=== PATIENT | female | born 1930 | race Caucasian/White ===

== ENCOUNTER 2016-11-13 11:38 | Outpatient (CLI) | payer OTHER ==
--- NOTE | 2016-11-13 12:36 | DI ---
EXAM: CHEST FRONTAL AND LATERAL VIEWS HISTORY: Malignant melanoma, chronic obstructive pulmonary disease. COMPARISON: None FINDINGS: Heart size is upper limit normal. There is moderate aortic atherosclerosis. Lungs are h yperinflated. No suspicious pulmonary opacities are identified radiographically. No pleural fluid or vascular congestion. Scoliosis is noted. IMPRESSION: No definite suspicious pulmonary nodules are definitely identified radiographically. If metastatic disease to the chest is of concern, consider correlation with CT given patient history.
== END 2016-11-13 11:39 | disposition home or self-care (01) ==
LOC: RAD 11:38
PROVIDERS: ATTEND Internal Medicine
DX: J44.9 Chronic obstructive pulmonary disease, unspecified (principal); Z85.820 Personal history of malignant melanoma of skin

== ENCOUNTER 2017-04-23 11:06 | Outpatient (CLI) | payer OTHER ==
--- NOTE | 2017-04-23 11:32 | DI ---
EXAM: Two views of the chest. History: Myelodysplastic syndrome. Comparison: Chest radiograph 11/13/2016 Findings: Heart size is upper limits of normal. No focal consolidation. No appreciable pleural fl uid and no pneumothorax. Atherosclerotic vascular calcifications. Scoliosis again noted. Impression: No acute cardiopulmonary process. No change compared to the prior study.
== END 2017-04-23 11:07 | disposition home or self-care (01) ==
LOC: RAD 11:06
PROVIDERS: ATTEND Internal Medicine Hematology & Oncology
DX: D46.0 Refractory anemia without ring sideroblasts, so stated (principal)

== ENCOUNTER 2018-01-30 10:15 | Emergency (ER) | payer OTHER ==
[2018-01-30 10:22] VITALS: BP 137/47; TEMP 98.5; BMI 19.4
[2018-01-30] MEDS ORDERED: TENIVAC IM ONE (10:31)
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
[2018-01-30] MEDS ORDERED: NORCO 7.5-325 PO STA (11:58)
[2018-01-30] MEDS ORDERED: KEFLEX PO STA (11:58)
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
== END 2018-01-30 12:40 | disposition home or self-care (01) ==
LOC: ED 10:15
DX: S99.911A Unspecified injury of right ankle, initial encounter (principal); S99.921A Unspecified injury of right foot, initial encounter; V86.99XA Unspecified occupant of other special all-terrain or other off-road motor vehicle injured in nontraffic accident, initial encounter; W19.XXXA Unspecified fall, initial encounter; F17.210 Nicotine dependence, cigarettes, uncomplicated
CPT/HCPCS: 90714; 99283

== ENCOUNTER 2018-02-02 14:33 | Inpatient (IN) ==
[2018-02-02 15:23] VITALS: BMI 19.7
[2018-02-02] MEDS ORDERED: VISTARIL INJ IM PRN (15:26)
[2018-02-02] MEDS ORDERED: MORPHINE 4 MG/ML VIAL IVP PRN (15:26)
[2018-02-02] MEDS ORDERED: NITROSTAT SL PRN (15:26)
[2018-02-02] MEDS ORDERED: ATROPINE SULFATE PFS IVP PRN (15:26)
[2018-02-02] MEDS ORDERED: SODIUM CHLORIDE 1,000 ML IV SCH (15:30)
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
[2018-02-02] MEDS: ROCEPHIN 1 GM in SODIUM CHLORIDE 50 ML IV SCH (16:17)
--- NOTE | 2018-02-02 16:19 | DI ---
EXAM: RIGHT FOOT, 3 VIEWS HISTORY: Infection FINDINGS: Soft tissue swelling of the distal dorsum of the foot is noted possibly with small areas o f soft tissue gas at this level. Consider regional laceration or infection of the soft tissues. No w ell-defined radiopaque foreign body is identified. Bones are diffusely demineralized. There is no w ell-defined acute fracture or healing fracture. No obvious focus of bony destruction to indicate rad iographic evidence of osteomyelitis is identified. If bone infection is of clinical concern, a nucle ar medicine consultation or MRI should be considered. IMPRESSION: 1. Soft tissue swelling of the dorsum of the foot possibly with a punctate internal gas. Consider l aceration or infection. 2. No obvious fracture or focus of bony destruction.
[2018-02-02] MEDS: BACTROBAN TP SCH (20:50)
[2018-02-02] MEDS: CLEOCIN PO SCH (20:51)
[2018-02-03] MEDS: CLEOCIN PO SCH ×3 (05:45→20:23)
[2018-02-03] MEDS ORDERED: ASPIRIN EC PO SCH ×2 (08:00→12:00)
[2018-02-03] MEDS: ROCEPHIN 1 GM in SODIUM CHLORIDE 50 ML IV SCH (09:05)
[2018-02-03] MEDS: BACTROBAN TP SCH ×2 (09:06→20:22)
[2018-02-03] MEDS ORDERED: NON-FORMULARY MEDICATION (Duloxetine Hcl [Cymbalta] 60 MG) PO SCH (11:15)
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
[2018-02-03] MEDS ORDERED: ARICEPT PO SCH (12:00)
[2018-02-03] MEDS: CELEXA PO SCH (13:02)
[2018-02-03] MEDS: CYMBALTA PO SCH (13:02)
[2018-02-03] MEDS: PROTONIX PO SCH (13:03)
[2018-02-03] MEDS: NAMENDA PO SCH ×2 (13:03→20:23)
--- NOTE | 2018-02-03 13:08 | PCM.PROG ---
Attending Provider: ATTENDING PROVIDER: Dr. GEORGI DARNELL DATE OF SERVICE: 02/03/18 SUBJECTIVE: This 88 year old WHITE/ F was hospitalized 02/02/18 with abrasion and infected ulcer with a flap on right lower extremity, infected superficial ulcer on the right foot. The patient is demented, up and about with help. Other problem is anemia. REVIEW OF SYSTEMS: CONSTITUTIONAL: No night sweats. No fatigue, malaise, lethargy. No fever or chills. HEENT: Eyes: No visual changes. No eye pain. No eye discharge. ENT: No runny nose. No epistaxis. No sinus pain. No odynophagia. No congestion. RESPIRATORY: No cough, no congestion. No hemoptysis. No shortness of breath. CARDIOVASCULAR: No angina symptoms. No CHF symptoms. No atypical chest pain for CAD. No palpitations. No orthopnea.. GASTROINTESTINAL: No abdominal pain. No nausea or vomiting. No diarrhea or constipation. No hematemesis. No hematochezia. GENITOURINARY: No urgency. No frequency. No dysuria. No hematuria. No obstructive symptoms. No discharge. No pain. No significant abnormal bleeding. MUSCULOSKELETAL: No musculoskeletal pain; no joint swelling. NEUROLOGICAL: Awake, alert. No headache. No neck pain. No syncope. No seizures. No dizziness. PSYCHIATRIC: Not anxious. No depression. No suicidal thoughts. No homicidal thoughts. SKIN: Abrasion and ulcer right lower extremity, infected ulcer right foot. ENDOCRINE: No unexplained weight loss. No weight gain. HEMATOLOGIC/LYMPHATIC: Anemia. No purpura. No petechiae. No prolonged or excessive bleeding. No palpable lymph nodes. PHYSICAL EXAMINATION: GENERAL: The patient is awake, alert lying/sitting in bed in no distress. VITAL SIGNS: Temperature 97.8 F, Pulse 65, Respiratory Rate 20, BP 137/64, Pulse Ox 98% HEENT: Head normocephalic, atraumatic. Eyes: Extraocular muscles are intact. Pupils are equal, round and reactive to light and accommodation. Ears: No lesions. Nose appeared normal. Throat: No exudate or erythema. NECK: Supple. No JVD, no carotid bruit. No lymphadenopathy or thyromegaly. LUNGS: Clear to auscultation. Percussion note normal. Chest symmetrical. HEART: S1, S2, no S3. No murmurs. No cyanosis or clubbing. No ascites. Pulses: Dorsalis pedis and posterior tibial pulses +1 to +2 both sides. ABDOMEN: Soft. Non-tender. Bowel sounds active. No CVA tenderness. No mass felt. EXTREMITIES: No edema. Full range of motion of all extremities, equal. NEUROLOGIC: No focal deficit. Cranial nerves II through XII are grossly intact. No headache, no double vision or headache. SKIN: Warm and dry. Abrasion right leg with infected ulcer with flap, ulcer on the right foot. LYMPHATIC: No palpable lymph nodes/no lymphedema. MUSCULOSKELETAL: Normal joints with no swelling. Muscle tone is normal. LAB REVIEW: 02/03/18 04:30 02/03/18 04:30 02/03/18 04:30: Sodium 138, Potassium 4.0, Chloride 104, Carbon Dioxide 27, Anion Gap 11.0, BUN 7, Creatinine 0.53 L, Estimated GFR (MDRD) 109.00, BUN/ Creatinine Ratio 13.20, Glucose 100, Calcium 8.6, Total Bilirubin 0.8, AST 14 L , ALT 11 L, Alkaline Phosphatase 73, Total Protein 5.4 L, Albumin 3.1 L, Globulin 2.3, Albumin/Globulin Ratio 1.35 02/03/18 04:30: WBC 5.07, RBC 2.44 L, Hgb 9.1 L, Hct 26.9 L, MCV 110.2 H, MCH 37.3 H, MCHC 33.8, RDW Coeff of Alonso 16.3 H, Plt Count 195, Immature Gran % (Auto ) 1.4, Neut % (Auto) 53.0, Lymph % (Auto) 24.7, Webb % (Auto) 13.4 H, Eos % ( Auto) 6.7, Baso % (Auto) 0.8, Immature Gran # (Auto) 0.1, Neut # (Auto) 2.7, Lymph # (Auto) 1.3, Webb # (Auto) 0.7, Eos # (Auto) 0.3, Baso # (Auto) 0.0, Plt Morphology Comment Normal, Anisocytosis 1+, Macrocytosis 2+ 02/02/18 23:05: Total Creatine Kinase 30, Troponin I < 0.0100 02/02/18 16:15: Urine Color Yellow, Urine Clarity Clear, Urine pH 7.0, Ur Specific [place] 1.015, Urine Protein Negative, Urine Glucose (UA) Negative, Urine Ketones Negative, Urine Blood Negative, Urine Nitrite Negative, Urine Bilirubin Negative, Urine Urobilinogen 1.0, Ur Leukocyte Esterase Negative 02/02/18 15:43: Sodium 136, Potassium 4.3, Chloride 100, Carbon Dioxide 29, Anion Gap 11.3, BUN 11, Creatinine 0.57 L, Estimated GFR (MDRD) 100.00, BUN/ Creatinine Ratio 19.29, Glucose 111, Calcium 9.0, Total Bilirubin 0.7, AST 14 L , ALT 11 L, Alkaline Phosphatase 82, Total Creatine Kinase 32, Troponin I < 0.0100, Total Protein 6.1, Albumin 3.4, Globulin 2.7, Albumin/Globulin Ratio 1.26 02/02/18 15:43: WBC 6.02, RBC 2.49 L, Hgb 9.4 L, Hct 27.8 L, MCV 111.6 H, MCH 37.8 H, MCHC 33.8, RDW Coeff of Alonso 16.8 H, Plt Count 201, Immature Gran % (Auto ) 1.3, Neut % (Auto) 62.1, Lymph % (Auto) 17.8, Webb % (Auto) 14.0 H, Eos % ( Auto) 4.3, Baso % (Auto) 0.5, Immature Gran # (Auto) 0.1, Neut # (Auto) 3.7, Lymph # (Auto) 1.1, Webb # (Auto) 0.8, Eos # (Auto) 0.3, Baso # (Auto) 0.0, Polychromasia 1+, Hypochromasia 1+, Poikilocytosis 1+, Anisocytosis 1+, Macrocytosis 2+, Tear Drop Cells 1+ ASSESSMENT: 1. Abrasion, ulcer right lower extremity. Ulcer dorsal aspect right foot. Ulcer seems to be better with no further evidence of any cellulitis. The patient is being seen by Dr. Domingo. 2. Cardiovascular status is stable. 3. Dementia 4. Anemia PLAN: 1. Will continue to clean ulcer with Normal Saline. 2. Continue antibiotics. PROGNOSIS: Poor considering the patient's age, nutritional status and BMI of 19. She has dementia. Plan and coordination of the patient's care discussed in the presence of [employer] Contort Operator and nurse. CONDITION: Stable SCRIBED BY: DANIELA YOUNGBLOOD [employer] scribed while in presence of service performed by Dr. GEORGI DARNELL on 02/03/18 ([id number])
--- NOTE | 2018-02-03 13:24 | HP ---
DATE OF SERVICE: 02/02/18 HISTORY OF PRESENT ILLNESS: This is an 88-year-old female who fell last weekend, 01/30/18. She went to the emergency room. The patient had brief loss of consciousness, abrasion right leg with open wounds right leg, right foot. The patient was put on Keflex. The area on the right foot is red, oozing purulent drainage. No signs or symptoms of CHF or CAD. PAST MEDICAL HISTORY: COPD Anemia Alzheimer's dementia MDS History of melanoma Glaucoma left and right PAST SURGICAL HISTORY: Melanoma Gallbladder REVIEW OF SYSTEMS: CONSTITUTIONAL: Fatigue. No night sweats. No malaise, lethargy. No fever or chills. HEENT: No sinus drainage. No sore throat. RESPIRATORY: No cough, no congestion. No hemoptysis. No shortness of breath. CARDIOVASCULAR: No angina symptoms. No CHF symptoms. No atypical chest pain for CAD. No palpitations. No PND. No orthopnea. GASTROINTESTINAL: No abdominal pain. No nausea or vomiting. No diarrhea or constipation. No hematemesis. No hematochezia. GENITOURINARY: No urgency. No frequency. No dysuria. No hematuria. No obstructive symptoms. No discharge. No pain. No significant abnormal bleeding. MUSCULOSKELETAL: Right foot swelling. NEUROLOGICAL: Blackout with fall. Positive for unsteady gait. No headache. No neck pain. No syncope. No seizures. No dizziness. PSYCHIATRIC: Not anxious. No depression. No suicidal thoughts. No homicidal thoughts. SKIN: No rash. No lesions. No wounds. ENDOCRINE: No unexplained weight loss. No weight gain. HEMATOLOGIC/LYMPHATIC: No anemia. No purpura. No petechiae. No prolonged or excessive bleeding. No palpable lymph nodes. PERSONAL/FAMILY/SOCIAL HISTORY: The patient is . Two children. Retired teacher. Nonsmoker. No alcohol use. No illicit drug use. Father is . Mother is . One brother ; two sisters. MEDICATIONS: Aspirin 325 mg one p.o. daily Celexa 20 mg one p.o. daily Pantoprazole 40 mg p.o. once daily Namenda XR 28 mg p.o. once daily Cymbalta 60 mg one p.o. daily Aricept 5 mg one tablet p.o. daily in the evening ALLERGIES: NKDA PHYSICAL EXAMINATION: GENERAL: The patient is oriented times three. VITAL SIGNS: Pulse 78, BP 112/68, temperature 98.1, 02 sat 92%. Weight 125 lbs. Height 5'6". HEENT: Head normocephalic. Scalp laceration.. Eyes: Extraocular muscles are intact. Pupils are equal, round and reactive to light and accommodation. Ears : No lesions. Nose appeared normal. Throat: No exudate or erythema. NECK: Supple. No JVD, no carotid bruit. No lymphadenopathy or thyromegaly. LUNGS: Decreased breath sounds. Clear to auscultation. Percussion note normal. Chest symmetrical. HEART: S1, S2, no S3. No murmurs. No cyanosis or clubbing. No ascites. Pulses: Dorsalis pedis and posterior tibial pulses +1 bilaterally. ABDOMEN: Soft. Nontender. Bowel sounds active. No CVA tenderness. No mass felt. EXTREMITIES: Edema right foot. Full range of motion of all extremities, equal. NEUROLOGIC: No focal deficit. Cranial nerves II through XII are grossly intact. No headache, no double vision or headache. SKIN: Abrasions right calf, puncture right foot with purulent drainage. LYMPHATIC: No palpable lymph nodes/no lymphedema. MUSCULOSKELETAL: Normal joints with no swelling. Muscle tone is normal. RECTAL/PELVIC: Refused colonoscopy screening. Patient refused pelvic examination. ASSESSMENT: 1. Abrasion right lower extremity. Infected deep puncture dorsal aspect right foot (Approximately 2" purulent drainage, right foot swollen and bruised. 2. Alzheimer's dementia 3. COPD 4. Anemia 5. MDS 6. Depression 7. Melanoma 8. Glaucoma left greater than right PLAN: 1. Admit 2. Routine telemetry orders 3. CPK/CMP daily and now 4. X-ray right foot 5. Elevate right leg 6. Wound culture to right foot/right calf 7. Rocephin 1 gm IV daily 8. Clindamycin 300 mg p.o. t.i.d. q.8hr 9. NS at 75 cc/hr times one bag 10. Consult Dr. Domingo 11. Bactroban to right calf b.i.d. 12. Regular diet 13. Continue home medications 14. Saline wash t.i.d. right foot ADDENDUM: X-ray of the foot shows soft tissue swelling dorsal aspect of the foot consider infection, no obvious fracture or bony destruction. Chest x-ray is normal. White count 6.02, hemoglobin 9.4, hematocrit 27.8, platelets 201. TIME SPENT: More than 70 minutes. MTDD
[2018-02-03] MEDS: ARICEPT PO SCH (17:23)
[2018-02-04] MEDS: CLEOCIN PO SCH ×3 (05:57→21:13)
[2018-02-04] MEDS: PROTONIX PO SCH (05:57)
[2018-02-04] MEDS ORDERED: NON-FORMULARY MEDICATION (Donepezil Hcl [Aricept] 5 MG) PO SCH (09:00)
[2018-02-04] MEDS ORDERED: NON-FORMULARY MEDICATION (Aspirin [Aspirin] 325 MG) PO SCH (09:00)
[2018-02-04] MEDS ORDERED: NON-FORMULARY MEDICATION (Memantine Hcl [Namenda Xr] 28 MG) PO SCH (09:00)
[2018-02-04] MEDS ORDERED: NON-FORMULARY MEDICATION (Pantoprazole Sodium [Protonix] 40 MG) PO SCH (09:00)
[2018-02-04] MEDS: ROCEPHIN 1 GM in SODIUM CHLORIDE 50 ML IV SCH (09:15)
[2018-02-04] MEDS: NAMENDA PO SCH ×2 (09:16→21:13)
[2018-02-04] MEDS: CYMBALTA PO SCH (09:16)
[2018-02-04] MEDS: ASPIRIN EC PO SCH (09:16)
[2018-02-04] MEDS: CELEXA PO SCH (09:17)
[2018-02-04] MEDS: BACTROBAN TP SCH ×2 (09:17→21:16)
[2018-02-04] MEDS: TYLENOL PO PRN (11:12)
--- NOTE | 2018-02-04 11:28 | PCM.PROG ---
Attending Provider: ATTENDING PROVIDER: Dr. GEORGI HOLLAND This patient is seen with Arti Beck, Nurse Practitioner. DATE OF SERVICE: 02/04/18 SUBJECTIVE: This 88 year old WHITE/ F was hospitalized 02/02/18. The patient is lying in bed, alert. Areas on right lower extremity are starting to scab, improved swelling. Temperature 99 this a.m. REVIEW OF SYSTEMS: CONSTITUTIONAL: No night sweats. No fatigue, malaise, lethargy. No fever or chills. HEENT: Eyes: No visual changes. No eye pain. No eye discharge. ENT: No runny nose. No epistaxis. No sinus pain. No odynophagia. No congestion. RESPIRATORY: No cough, no congestion. No hemoptysis. No shortness of breath. CARDIOVASCULAR: No angina symptoms. No CHF symptoms. No atypical chest pain for CAD. No palpitations. No orthopnea.. GASTROINTESTINAL: No abdominal pain. No nausea or vomiting. No diarrhea or constipation. No hematemesis. No hematochezia. GENITOURINARY: No urgency. No frequency. No dysuria. No hematuria. No obstructive symptoms. No discharge. No pain. No significant abnormal bleeding. MUSCULOSKELETAL: No musculoskeletal pain; no joint swelling. NEUROLOGICAL: Awake, alert, oriented to time, place and person. No headache. No neck pain. No syncope. No seizures. No dizziness. PSYCHIATRIC: Not anxious. No depression. No suicidal thoughts. No homicidal thoughts. SKIN: Multiple abrasions right lower extremity, infected. ENDOCRINE: No unexplained weight loss. No weight gain. HEMATOLOGIC/LYMPHATIC: No anemia. No purpura. No petechiae. No prolonged or excessive bleeding. No palpable lymph nodes. PHYSICAL EXAMINATION: GENERAL: The patient is awake, alert and oriented, lying in bed in no distress. VITAL SIGNS: Temperature 99 F, Pulse 63, Respiratory Rate 18, BP 152/78, Pulse Ox 97% HEENT: Head normocephalic, atraumatic. Eyes: Extraocular muscles are intact. Pupils are equal, round and reactive to light and accommodation. Ears: No lesions. Nose appeared normal. Throat: No exudate or erythema. NECK: Supple. No JVD, no carotid bruit. No lymphadenopathy or thyromegaly. LUNGS: Diminished breath sounds. Clear to auscultation. Percussion note normal. Chest symmetrical. HEART: S1, S2, no S3. No murmurs. No cyanosis or clubbing. No ascites. Pulses: Dorsalis pedis and posterior tibial pulses +1 to +2 both sides. ABDOMEN: Soft. Non-tender. Bowel sounds active. No CVA tenderness. No mass felt. EXTREMITIES: No edema. Full range of motion of all extremities, equal. NEUROLOGIC: No focal deficit. Cranial nerves II through XII are grossly intact. No headache, no double vision or headache. SKIN: Wasrm and dry. Intact. Turgor-normal. Right lower extremity superficial abrasions, scabbed on right calf. 2" area puncture infected dorsal aspect right foot with surrounding swelling and erythema with purulent drainage. LYMPHATIC: No palpable lymph nodes/no lymphedema. MUSCULOSKELETAL: Normal joints with no swelling. Muscle tone is normal. LAB REVIEW: 02/04/18 04:15 02/04/18 04:15 02/04/18 04:15: Sodium 135 L, Potassium 3.8, Chloride 101, Carbon Dioxide 28, Anion Gap 9.8, BUN 7, Creatinine 0.54 L, Estimated GFR (MDRD) 107.00, BUN/ Creatinine Ratio 12.96, Glucose 106, Calcium 8.7, Total Bilirubin 1.1, AST 15, ALT 12, Alkaline Phosphatase 76, Total Protein 5.6 L, Albumin 3.3 L, Globulin 2.3, Albumin/Globulin Ratio 1.43 02/04/18 04:15: WBC 5.06, RBC 2.57 L, Hgb 9.6 L, Hct 27.5 L, MCV 107.0 H, MCH 37.4 H, MCHC 34.9, RDW Coeff of Alonso 16.2 H, Plt Count 210, Immature Gran % (Auto ) 2.8, Neut % (Auto) 53.9, Lymph % (Auto) 19.4, [place] % (Auto) 16.2 H, Eos % ( Auto) 6.9, Baso % (Auto) 0.8, Immature Gran # (Auto) 0.1, Neut # (Auto) 2.7, Lymph # (Auto) 1.0, [place] # (Auto) 0.8, Eos # (Auto) 0.4, Baso # (Auto) 0.0, Plt Morphology Comment Normal, Anisocytosis 1+, Macrocytosis 2+ ASSESSMENT: 1. Abrasion, ulcer right lower extremity. Infected dorsal aspect right foot. Ulcer seems to be better with no further evidence of any cellulitis. The patient is being seen by Dr. Domingo. 2. Cardiovascular status is stable. 3. Dementia 4. Anemia PLAN: 1. Continue Clindamycin 2. Continue IV antibiotics 3. Keep leg elevated 4. Dr. Domingo to continue to follow Plan and coordination of the patient's care discussed in the presence of Dietary Services Director and nurse. CONDITION: Stable SCRIBED BY: April LYNNist scribed while in presence of service performed by Dr. Holland/Arti Beck APRN on 02/04/18 ([id number])
[2018-02-04] MEDS: ARICEPT PO SCH (17:38)
[2018-02-04] MEDS ORDERED: XANAX PO PRN (21:38)
[2018-02-05] MEDS: PROTONIX PO SCH (06:05)
[2018-02-05] MEDS: CLEOCIN PO SCH ×3 (06:06→20:32)
--- NOTE | 2018-02-05 09:37 | PCM.PROG ---
Attending Provider: ATTENDING PROVIDER: Dr. GEORGI HOLLAND This patient is seen with Arti Beck, Nurse Practitioner. DATE OF SERVICE: 02/05/18 SUBJECTIVE: This 88 year old WHITE/ F was hospitalized 02/02/18. The patient is lying in bed, alert. Swelling of right lower extremity slightly improved. No fever today. The patient still with purulent drainage. Dr. Domingo has yet to debride. REVIEW OF SYSTEMS: CONSTITUTIONAL: No night sweats. No fatigue, malaise, lethargy. No fever or chills. HEENT: Eyes: No visual changes. No eye pain. No eye discharge. ENT: No runny nose. No epistaxis. No sinus pain. No odynophagia. No congestion. RESPIRATORY: No cough, no congestion. No hemoptysis. No shortness of breath. CARDIOVASCULAR: No angina symptoms. No CHF symptoms. No atypical chest pain for CAD. No palpitations. No orthopnea.. GASTROINTESTINAL: No abdominal pain. No nausea or vomiting. No diarrhea or constipation. No hematemesis. No hematochezia. GENITOURINARY: No urgency. No frequency. No dysuria. No hematuria. No obstructive symptoms. No discharge. No pain. No significant abnormal bleeding. MUSCULOSKELETAL: No musculoskeletal pain; no joint swelling. NEUROLOGICAL: Awake, alert with bouts of confusion. No headache. No neck pain. No syncope. No seizures. No dizziness. PSYCHIATRIC: Not anxious. No depression. No suicidal thoughts. No homicidal thoughts. SKIN: Multiple abrasions right lower extremity, infected. Slightly less swelling. ENDOCRINE: No unexplained weight loss. No weight gain. HEMATOLOGIC/LYMPHATIC: No anemia. No purpura. No petechiae. No prolonged or excessive bleeding. No palpable lymph nodes. PHYSICAL EXAMINATION: GENERAL: The patient is awake, alert and oriented, lying in bed in no distress. VITAL SIGNS: Temperature 98.5 F, Pulse 65, Respiratory Rate 18, BP 140/71, Pulse Ox 97% HEENT: Head normocephalic, atraumatic. Eyes: Extraocular muscles are intact. Pupils are equal, round and reactive to light and accommodation. Ears: No lesions. Nose appeared normal. Throat: No exudate or erythema. NECK: Supple. No JVD, no carotid bruit. No lymphadenopathy or thyromegaly. LUNGS: Clear to auscultation. Percussion note normal. Chest symmetrical. HEART: S1, S2, no S3. No murmurs. No cyanosis or clubbing. No ascites. Pulses: Dorsalis pedis and posterior tibial pulses +1 to +2 both sides. ABDOMEN: Soft. Non-tender. Bowel sounds active. No CVA tenderness. No mass felt. EXTREMITIES: Right lower extremity superficial abrasions, scabbed on right calf. 2" area puncture infected dorsal aspect right foot with surrounding swelling, which is less today and erythema with purulent drainage. Full range of motion of all extremities, equal. NEUROLOGIC: No focal deficit. Cranial nerves II through XII are grossly intact. No headache, no double vision or headache. SKIN: Not dry. Intact. Turgor-normal. LYMPHATIC: No palpable lymph nodes/no lymphedema. MUSCULOSKELETAL: Normal joints with no swelling. Muscle tone is normal. LAB REVIEW: 02/05/18 05:15 02/05/18 05:15 02/05/18 05:15: Sodium 136, Potassium 3.9, Chloride 99, Carbon Dioxide 30, Anion Gap 10.9, BUN 8, Creatinine 0.50 L, Estimated GFR (MDRD) 116.00, BUN/ Creatinine Ratio 16.00, Glucose 104, Calcium 9.1, Total Bilirubin 1.1, AST 17, ALT 10 L, Alkaline Phosphatase 89, Total Protein 6.0, Albumin 4.1, Globulin 1.9 , Albumin/Globulin Ratio 2.16 02/05/18 05:15: WBC 6.73, RBC 2.75 L, Hgb 10.3 L, Hct 29.9 L, MCV 108.7 H, MCH 37.5 H, MCHC 34.4, RDW Coeff of Alonso 16.6 H, Plt Count 210, Immature Gran % (Auto ) 1.6, Neut % (Auto) 61.7, Lymph % (Auto) 15.5, [place] % (Auto) 14.9 H, Eos % ( Auto) 5.6, Baso % (Auto) 0.7, Immature Gran # (Auto) 0.1, Neut # (Auto) 4.2, Lymph # (Auto) 1.0, [place] # (Auto) 1.0, Eos # (Auto) 0.4, Baso # (Auto) 0.1, Anisocytosis Not present, Macrocytosis 1+ ASSESSMENT: 1. Abrasion, ulcer right lower extremity. Infected dorsal aspect right foot. Ulcer seems to be better with no further evidence of any cellulitis. The patient is being seen by Dr. Domingo. 2. Cardiovascular status is stable. 3. Dementia 4. Anemia PLAN: 1. Continue IV and p.o. antibiotics 2. Anticipate debridement with Dr. Domingo Plan and coordination of the patient's care discussed in the presence of Fish Receiver and nurse. CONDITION: Stable SCRIBED BY: DANIELA YOUNGBLOOD Devops scribed while in presence of service performed by Dr. Holland/Arti Beck APRN on 02/05/18 ([id number])
[2018-02-05] MEDS: CELEXA PO SCH (10:13)
[2018-02-05] MEDS: ASPIRIN EC PO SCH (10:13)
[2018-02-05] MEDS: NAMENDA PO SCH ×2 (10:13→20:32)
[2018-02-05] MEDS: BACTROBAN TP SCH ×2 (10:13→20:31)
[2018-02-05] MEDS: CYMBALTA PO SCH (10:13)
[2018-02-05] MEDS: ROCEPHIN 1 GM in SODIUM CHLORIDE 50 ML IV SCH (10:14)
[2018-02-05] MEDS ORDERED: XANAX PO PRN (11:30)
[2018-02-05] MEDS: ARICEPT PO SCH (18:04)
[2018-02-05] MEDS: XANAX PO SCH (20:32)
[2018-02-05] MEDS: TYLENOL PO PRN (20:32)
[2018-02-05] MEDS ORDERED: SILVADENE CREAM TP SCH (21:00)
[2018-02-06] MEDS: CLEOCIN PO SCH ×2 (05:41→14:06)
[2018-02-06] MEDS: PROTONIX PO SCH (05:41)
[2018-02-06] MEDS: CYMBALTA PO SCH (08:39)
[2018-02-06] MEDS: CELEXA PO SCH (08:39)
[2018-02-06] MEDS: ROCEPHIN 1 GM in SODIUM CHLORIDE 50 ML IV SCH (08:39)
[2018-02-06] MEDS: NAMENDA PO SCH ×2 (08:39→21:18)
[2018-02-06] MEDS: ASPIRIN EC PO SCH (08:39)
[2018-02-06] MEDS: BACTROBAN TP SCH ×2 (10:27→21:19)
[2018-02-06] MEDS: MYLANTA SUSP PO SCH ×3 (15:55→21:17)
[2018-02-06] MEDS: ARICEPT PO SCH (16:33)
[2018-02-06] MEDS: SILVADENE CREAM TP SCH (16:34)
[2018-02-06] MEDS: XANAX PO SCH (21:18)
[2018-02-07] MEDS: PROTONIX PO SCH (05:48)
[2018-02-07] MEDS: NAMENDA PO SCH ×2 (08:02→20:35)
[2018-02-07] MEDS: MYLANTA SUSP PO SCH ×4 (08:02→20:35)
[2018-02-07] MEDS: CYMBALTA PO SCH (08:02)
[2018-02-07] MEDS: ASPIRIN EC PO SCH (08:02)
[2018-02-07] MEDS: ROCEPHIN 1 GM in SODIUM CHLORIDE 50 ML IV SCH (08:02)
[2018-02-07] MEDS: CELEXA PO SCH (08:02)
[2018-02-07] MEDS: BACTROBAN TP SCH ×2 (09:12→20:35)
[2018-02-07] MEDS: ARICEPT PO SCH (16:05)
[2018-02-07] MEDS: SILVADENE CREAM TP SCH (20:33)
[2018-02-07] MEDS: XANAX PO SCH (20:35)
[2018-02-07] MEDS: VITAMIN B-12 IM SCH (22:21)
[2018-02-07] MEDS: THIAMINE IM SCH (22:22)
[2018-02-08] MEDS ORDERED: TYLENOL PO STA (01:36)
[2018-02-08] MEDS: PROTONIX PO SCH (05:55)
[2018-02-08] MEDS ORDERED: TYLENOL PO PRN (07:46)
[2018-02-08] MEDS: NAMENDA PO SCH (09:15)
[2018-02-08] MEDS: CELEXA PO SCH (09:15)
[2018-02-08] MEDS: ASPIRIN EC PO SCH (09:15)
[2018-02-08] MEDS: CYMBALTA PO SCH (09:15)
[2018-02-08] MEDS: MYLANTA SUSP PO SCH ×2 (09:16→12:56)
[2018-02-08] MEDS: BACTROBAN TP SCH (09:19)
[2018-02-08] MEDS: ROCEPHIN 1 GM in SODIUM CHLORIDE 50 ML IV SCH (09:19)
--- NOTE | 2018-02-08 09:19 | PCM.PROG ---
Attending Provider: ATTENDING PROVIDER: Dr. GEORGI HOLLAND This patient is seen with Arti Beck, Nurse Practitioner. DATE OF SERVICE: 02/08/18 SUBJECTIVE: This 88 year old WHITE/ F was hospitalized 02/02/18. The patient is lying in bed, resting comfortably. Dr. Domingo debrided last night and has been doing wet to dry dressing over the weekend with compression wrap. Swelling and redness sign improved. The patient says she would like to go home today. Will discuss with Dr. Domingo. REVIEW OF SYSTEMS: CONSTITUTIONAL: No night sweats. No fatigue, malaise, lethargy. No fever or chills. HEENT: Eyes: No visual changes. No eye pain. No eye discharge. ENT: No runny nose. No epistaxis. No sinus pain. No odynophagia. No congestion. RESPIRATORY: No cough, no congestion. No hemoptysis. No shortness of breath. CARDIOVASCULAR: No angina symptoms. No CHF symptoms. No atypical chest pain for CAD. No palpitations. No orthopnea.. GASTROINTESTINAL: No abdominal pain. No nausea or vomiting. No diarrhea or constipation. No hematemesis. No hematochezia. GENITOURINARY: No urgency. No frequency. No dysuria. No hematuria. No obstructive symptoms. No discharge. No pain. No significant abnormal bleeding. MUSCULOSKELETAL: No musculoskeletal pain; no joint swelling. NEUROLOGICAL: Awake, alert, oriented to time, place and person. No headache. No neck pain. No syncope. No seizures. No dizziness. PSYCHIATRIC: Not anxious. No depression. No suicidal thoughts. No homicidal thoughts. SKIN: Wound right lower extremity. ENDOCRINE: No unexplained weight loss. No weight gain. HEMATOLOGIC/LYMPHATIC: No anemia. No purpura. No petechiae. No prolonged or excessive bleeding. No palpable lymph nodes. PHYSICAL EXAMINATION: GENERAL: The patient is awake, alert and oriented, lying in bed in no distress. VITAL SIGNS: Temperature 98.0 F, Pulse 58, Respiratory Rate 16, BP 135/63, Pulse Ox 97% HEENT: Head normocephalic, atraumatic. Eyes: Extraocular muscles are intact. Pupils are equal, round and reactive to light and accommodation. Ears: No lesions. Nose appeared normal. Throat: No exudate or erythema. NECK: Supple. No JVD, no carotid bruit. No lymphadenopathy or thyromegaly. LUNGS: Clear to auscultation. Percussion note normal. Chest symmetrical. HEART: S1, S2, no S3. No murmurs. No cyanosis or clubbing. No ascites. Pulses: Dorsalis pedis and posterior tibial pulses +1 to +2 both sides. ABDOMEN: Soft. Non-tender. Bowel sounds active. No CVA tenderness. No mass felt. EXTREMITIES: No edema. Full range of motion of all extremities, equal. NEUROLOGIC: No focal deficit. Cranial nerves II through XII are grossly intact. No headache, no double vision or headache. SKIN: Right lower extremity superficial abrasions, scabbed on right calf. 2" area puncture infected dorsal aspect right foot with surrounding swelling, which is less today and erythema with purulent drainage. Full range of motion of all extremities, equal. LYMPHATIC: No palpable lymph nodes/no lymphedema. MUSCULOSKELETAL: Normal joints with no swelling. Muscle tone is normal. LAB REVIEW: 02/08/18 04:05 02/08/18 04:05 02/08/18 04:05: Sodium 134 L, Potassium 4.3, Chloride 99, Carbon Dioxide 28, Anion Gap 11.3, BUN 13, Creatinine 0.60, Estimated GFR (MDRD) 94.00, BUN/ Creatinine Ratio 21.66, Glucose 103, Calcium 8.7, Total Bilirubin 1.5 H, AST 14 L, ALT 12, Alkaline Phosphatase 82, Total Protein 5.6 L, Albumin 3.4, Globulin 2.2, Albumin/Globulin Ratio 1.55 02/08/18 04:05: WBC 6.35, RBC 2.67 L, Hgb 9.8 L, Hct 29.0 L, MCV 108.6 H, MCH 36.7 H, MCHC 33.8, RDW Coeff of Alonso 16.4 H, Plt Count 173, Immature Gran % (Auto ) 0.6, Neut % (Auto) 61.8, Lymph % (Auto) 17.6, [place] % (Auto) 14.8 H, Eos % ( Auto) 4.4, Baso % (Auto) 0.8, Immature Gran # (Auto) 0.0, Neut # (Auto) 3.9, Lymph # (Auto) 1.1, [place] # (Auto) 0.9, Eos # (Auto) 0.3, Baso # (Auto) 0.1, Plt Morphology Comment Normal, Anisocytosis 1+, Macrocytosis 2+ ASSESSMENT: 1. Abrasion, ulcer right lower extremity. Infected dorsal aspect right foot. Ulcer seems to be better with no further evidence of any cellulitis. The patient is being seen by Dr. Domingo. 2. Cardiovascular status is stable. 3. Dementia 4. Anemia PLAN: 1. Tylenol 650 mg q.6hr. 2. Anticipate discharge. 3. Keflex 500 mg t.i.d. times 7 days. 4. Bactroban t.i.d. 5. Silvadene b.i.d. 6. Followup with Dr. Holland/Arti. 7. Home Health for Wound Care. Plan and coordination of the patient's care discussed in the presence of Operations Welder and nurse. CONDITION: Stable SCRIBED BY: DANIELA YOUNGBLOOD Elevator Repairer scribed while in presence of service performed by Dr. Holland/Arti Beck APRN on 02/08/18 ([id number])
[2018-02-08] MEDS: VITAMIN B-12 IM SCH (09:20)
[2018-02-08] MEDS: THIAMINE IM SCH (09:21)
[2018-02-08 09:38] VITALS: BP 130/56; TEMP 98.5
--- NOTE | 2018-02-08 11:03 | CM.DICTOOL ---
ADMISSION: 02/02/18 14:33 DISCHARGE: 02/08/18 FINAL DIAGNOSIS INFECTED DEEP PUNCTURE DORSAL ASPECT RIGHT FOOT ABRAISED RIGHT CALF ALZHEIMER'S DEMENTIA COPD ANEMIA MDS DEPRESSION MELANOMA GLAUCOMA LEFT GREATER THAN RIGHT S/P CHOLECYSTECTOMY LAST VITALS Temp Pulse Resp BP Pulse Ox 98.5 F 64 20 130/56 L 98 02/08/18 09:37 02/08/18 09:37 02/08/18 09:37 02/08/18 09:37 02/08/18 09:37 TAKE THESE MEDICATIONS AT HOME Acetaminophen (Tylenol) 650 mg PO Q6H PRN PRN Reason: Analgesia Aspirin (Aspirin Ec) 325 mg PO DAILYWM [facility] Last Admin: 02/08/18 09:15 Dose: 325 mg Citalopram Hydrobromide (Celexa) 20 mg PO DAILY [facility] Last Admin: 02/08/18 09:15 Dose: 20 mg Donepezil HCl (Aricept) 5 mg PO QPM [facility] Last Admin: 02/07/18 16:05 Dose: 5 mg Duloxetine HCl (Cymbalta) 60 mg PO DAILY [facility] Last Admin: 02/08/18 09:15 Dose: 60 mg Memantine XR 28MG PO DAILY Last Admin: 02/08/18 09:15 Dose: 10 mg Pantoprazole Sodium (Protonix) 40 mg PO QDAC [facility] Last Admin: 02/08/18 05:55 Dose: 40 mg ALLERGIES No Known Allergies Allergy (Unverified 01/30/18 10:21) DISCONTINUED MEDICATIONS NONE NEW PRESCRIPTIONS: NEW MEDICATIONS: 1. KEFLEX 500MG TAKE 1 BY MOUTH 3 TIMES A DAY FOR 7 DAYS. TAKE UNTIL ALL GONE. SMOKING: N/A DISEASE SPECIFIC EDUCATION: WOUND CARE MEDICATIONS ACTIVITY HOME HEALTH FOLLOW UP APPOINTMENTS WOUND CARE CLINIC LAB REVIEW: 02/08/18 04:05 02/08/18 04:05 02/08/18 04:05: Sodium 134 L, Potassium 4.3, Chloride 99, Carbon Dioxide 28, Anion Gap 11.3, BUN 13, Creatinine 0.60, Estimated GFR (MDRD) 94.00, BUN/ Creatinine Ratio 21.66, Glucose 103, Calcium 8.7, Total Bilirubin 1.5 H, AST 14 L, ALT 12, Alkaline Phosphatase 82, Total Protein 5.6 L, Albumin 3.4, Globulin 2.2, Albumin/Globulin Ratio 1.55 02/08/18 04:05: WBC 6.35, RBC 2.67 L, Hgb 9.8 L, Hct 29.0 L, MCV 108.6 H, MCH 36.7 H, MCHC 33.8, RDW Coeff of Alonso 16.4 H, Plt Count 173, Immature Gran % (Auto ) 0.6, Neut % (Auto) 61.8, Lymph % (Auto) 17.6, [place] % (Auto) 14.8 H, Eos % ( Auto) 4.4, Baso % (Auto) 0.8, Immature Gran # (Auto) 0.0, Neut # (Auto) 3.9, Lymph # (Auto) 1.1, [place] # (Auto) 0.9, Eos # (Auto) 0.3, Baso # (Auto) 0.1, Plt Morphology Comment Normal, Anisocytosis 1+, Macrocytosis 2+ PLAN: CONTINUE HOME MEDICATIONS PER NURSING SHEETS. MAY TAKE TYLENOL FOR PAIN. NEW MEDICATIONS: 1. KEFLEX 500MG TAKE 1 BY MOUTH 3 TIMES A DAY FOR 7 DAYS. TAKE UNTIL ALL GONE. WOUND CARE: WET TO DRY DRESSINGS TO WOUNDS BID. HOME HEALTH TO ASSIST WITH DRESSING CHANGES. YOU HAVE BEEN REFERRED TO THE [facility]. DR. GOMEZ REQUESTS YOU BE SEEN ON THIS THURSDAY. THEY SHOULD CALL YOU WITH AN APPOINTMENT TIME. CALL IF YOU DO NOT HEAR FROM THEM BY THURSDAY AFTERNOON. DIET: TOLERATED. ACTIVITY: KEEP RIGHT LEG ELEVATED MUCH POSSIBLE. AMBULATE ONLY NEEDED. FOLLOW UP WITH DR. DARNELL ON ThursdayJanuary AT 10AM. IF UNABLE TO KEEP APPOINTMENT PLEASE CALL TO RESCHEDULE. [phone]. FOLLOW UP WITH DR. GOMEZ ON ThursdayJanuary AT 100PM. IF UNABLE TO KEEP APPOINTMENT PLEASE CALL TO RESCHEDULE. [phone]. PATIENT IS A FULL CODE. AWAKENS EASILY. ORIENTED X 4 WITH FORGETFULNESS NOTED. Reginald LAM REHAB DIRECTOR OCCUPATIONAL THERAPIST INTO SEE PATIENT. PLAN OF CARE DISCUSSED INCLUDING POSSIBLE DISCHARGE TO HOME, HOME HEALTH FOR WOUND CARE AND ABX THERAPY. DISCUSSED HOME HEALTH AGENCY CHOICE AND PATIENT NOT SURE WHICH AGENCY. CALLED PATIENT'S SON WITH MESSAGE LEFT ON VOICE MAIL. APPETITE IS GOOD. VITAL SIGNS ARE STABLE. HAS BEEN AFEBRILE. POX 97% ON ROOM AIR. HEART TONES ARE REGULAR. NO C/O PAIN OR DISCOMFORT. LUNGS ARE CLEAR. NO COUGH OR DYSPNEA NOTED. ABDOMEN IS SOFT, NON-TENDER WITH BOWEL SOUNDS POSITIVE IN ALL [address] WITH BRIGHT RED STOMA NOTED. STOOL NOTED INDICATING PROPER FUNCTIONING. PEDAL PULSES POSITIVE WITHOUT EDEMA. RIGHT OCHOA WITH SMALL ABRASION AND BRUISING NOTED. NO DRAINAGE OR S/S OF INFECTION. RIGHT FOOT DRESSING REMOVED PER Reginald LAM APRN REVEALING IMPROVEMENT OF REDNESS AND SWELLING. SMALL AMOUNT OF YELLOWISH DRAINAGE NOTED. AREA HAD BEEN DEBRIDED BY DR. GOMEZ LAST EVENING. HAS SALINE LOCK IN RIGHT UPPER ARM SITE IS CLEAR. IS A FALL RISK WITH FALL PRECAUTIONS IN USE. IS A STANDBY ASSIST WITH STEADY/ SLOW GAIT. DR. GEORGI DARNELL MD Reginald LAM APRN
--- NOTE | 2018-02-08 11:40 | PN ---
DATE OF SERVICE: 02/04/18 SUBJECTIVE: The patient was hospitalized with infected ulcers on the leg. The patient's condition is improved. She is being taken care of by Dr. Domingo who is surgical endoscopist. The patient was seen and examined with Nurse Practitioner. Continued on Antibiotics. CONDITION: Improving. TIME SPENT: More than 30 minutes. Plan and coordination of the patient's care discussed in the presence of nurse. PETE
--- NOTE | 2018-02-08 13:11 | PN ---
DATE OF SERVICE: 02/05/18 SUBJECTIVE: 88 year old white female hospitalized with lower extremity abrasion and infection ulcers. It is being seen by Dr. Domingo on consultation. The patient's infection seems to be under control. The patient is noncompliant and wants to go home everyday. She has dementia with some aggressive behavior. Yesterday she was given Xanax and that has helped. The patient strongly advised to staying in the hospital and the son, the one that is charge of her power of lead oxide mill tender for health. The patient was seen and examined with Nurse Practitioner. Continue antibiotics and surgical followup consultation. TIME SPENT: More than 30 minutes. Plan and coordination of the patient's care discussed in the presence of nurse. PETE
--- NOTE | 2018-02-08 15:09 | CONS ---
DATE OF CONSULTATION FOLLOW UP: 02/03/18 The patient's right foot is still markedly edematous and has vesicular eruptions on the dorsal surface, distal. Vesicles in the lateral leg is due to blood. I will attempt to dbride it today. I did talk to the patient, as well as the nurse that the leg has to be elevated all of the time. The only time her legs are down on the floor is when she is eating and if she is going for personal necessities to the bathroom. Otherwise, she should be in a supine posture with the legs elevated. I did advise the patient that these blisters would erupt and it would produce some rough surfaces. It is mandatory that she keeps it up. I do believe that the patient has some senile problems and that she does not remember everything. I did advise the nurse to keep check and put the patient back at supine posture if she is sitting. PETE
--- NOTE | 2018-02-08 15:15 | CONS ---
DATE OF CONSULTATION FOLLOW UP: 02/04/18 The right foot is still essentially the same as yesterday. The swelling is the same, as well as the vesicles. The patient could not follow the instructions. A compression dressing will be applied to this area and this patient should be going to Wound Care for further follow up for the problem. This will be done after she is discharged from this facility. The patient may need Transitional Care in order to follow this wound. The patient is not in any distress. Her vital signs at 6 p.m. today showed a temperature of 97.4, axillary. Pulse 72, blood pressure 163/71, respiratory rate 16, oxygen saturation 98 at room air. The patient always wants to go home. PETE
--- NOTE | 2018-02-08 15:26 | CONS ---
DATE OF CONSULTATION FOLLOW UP: 02/05/18 The patient is in bed with the foot elevated. The right foot swelling has regressed remarkably and the blisters also had regressed. Debridement was carried in the area of the foot, dorsal surface, lateral, as well as in the right leg. Debridement was carried sharply using a curved scissor and a thumb forceps. Peroxide was used to soak the wound prior to the debridement. After the debridement, the wound would be dressed with moist saline during the daytime and then a night should be Silvadene cream covered with Telfa and a Estephania or an adhesive. The patient tolerated the debridement well. The swelling in the foot and leg has regressed and so no compression dressing is needed at this time. Again, the nurse, as well as the patient were reminded that she should not get out of bed unless it is for eating or going to the bathroom. PETE
--- NOTE | 2018-02-08 15:35 | CONS ---
DATE OF CONSULTATION FOLLOW UP: 02/06/18 Ms. 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 The patient had blisters on the dorsal surface of the foot since she was hanging her legs all of the time. She had been advised several times that she should put her legs up or elevated in bed. She should only be up while eating or going for personal necessities in the bathroom. The swelling in the foot has decreased remarkably. The blisters has disappeared. There is still a moderate amount of swelling. No debridement was done today. Probably tomorrow. The patient's appetite is good and had been consuming 100% of the meals. VITAL SIGNS: Today at 5:30 p.m. showed a temperature of 97.6, pulse 71, blood pressure 154/68, respiratory rate 18, oxygen saturation 99 at room air. The patient is still on Clindamycin and Ceftriaxone. Culture did show Enterobacter cloacae complex and is sensitive to Ceftriaxone, but not to Clindamycin. The other wound culture had no growth. The Clindamycin will be discontinued to reduce the chances of antibiotic associated colitis. PETE
--- NOTE | 2018-02-09 08:32 | PN ---
DATE OF SERVICE: 02/07/18 SUBJECTIVE: The patient was hospitalized with ulcers both of them on the right leg seems to be healing properly. REVIEW OF SYSTEMS: CONSTITUTIONAL: No night sweats. No fatigue, malaise, lethargy. No fever or chills. HEENT: Eyes: No visual changes. No eye pain. No eye discharge. ENT: No runny nose. No epistaxis. No sinus pain. No sore throat. No odynophagia. No congestion. RESPIRATORY: No cough, no congestion. No hemoptysis. No shortness of breath. CARDIOVASCULAR: No angina symptoms. No CHF symptoms. No atypical chest pain for CAD. No palpitations. No orthopnea. GASTROINTESTINAL: No abdominal pain. No nausea or vomiting. No diarrhea or constipation. No hematemesis. No hematochezia. GENITOURINARY: No urgency. No frequency. No dysuria. No hematuria. No obstructive symptoms. No discharge. No pain. No significant abnormal bleeding. MUSCULOSKELETAL: No musculoskeletal pain; no joint swelling. NEUROLOGICAL: No headache. No neck pain. No syncope. No seizures. No dizziness. Confused but no distress. PSYCHIATRIC: Not anxious. No depression. No suicidal thoughts. No homicidal thoughts. SKIN: No rash. No lesions. No wounds. ENDOCRINE: No unexplained weight loss. No weight gain. HEMATOLOGIC/LYMPHATIC: No anemia. No purpura. No petechiae. No prolonged or excessive bleeding. No palpable lymph nodes. PHYSICAL EXAMINATION: HEENT: Head normocephalic, atraumatic. Eyes: Extraocular muscles are intact. Pupils are equal, round and reactive to light and accommodation. Ears: No lesions. Nose appeared normal. Throat: No exudate or erythema. NECK: Supple. No JVD, no carotid bruit. No lymphadenopathy or thyromegaly. LUNGS: Clear to auscultation. Percussion note normal. Chest symmetrical. HEART: S1, S2, no S3. No murmurs. No cyanosis or clubbing. No ascites. Pulses: Dorsalis pedis and posterior tibial pulses +1 to +2 both sides. ABDOMEN: Soft. Nontender. Bowel sounds active. No CVA tenderness. No mass felt. EXTREMITIES: No edema. Full range of motion of all extremities, equal. Right leg has a bandage and doesn't seem to be swollen. The capillary feeling is good beyond the bandage area. The patient is doing much better as far the healing part is concerned according to the nursing staff. NEUROLOGIC: No focal deficit. Cranial nerves II through XII are grossly intact. No headache, no double vision or headache. SKIN: Not dry. Intact. Turgor - normal. LYMPHATIC: No palpable lymph nodes/no lymphedema. MUSCULOSKELETAL: Normal joints with no swelling. Muscle tone is normal. ASSESSMENT: 1. Ulcers, healing preventive antibiotics PLAN: 1. Continue the rest of the medications CONDITION: Stable PROGNOSIS: Poor, healing is guarded has patient is demented and has malnourished and is being taken care of by son who is doing his best and his best is not good enough. TIME SPENT: More than 30 minutes. Plan and coordination of the patient's care discussed in the presence of nurse. PETE
--- NOTE | 2018-02-10 14:42 | PN ---
DATE OF SERVICE: 02/08/18 SUBJECTIVE: 88 year old white female hospitalized with abrasions right lower extremity with ulcers. The patient's has done very well and the ulcer is healing. The patient is going to need Wound Care at [facility] followed by Dr. Domingo. She was seen by Dr. Domingo in the hospital. The patient has dementia and she is underweight with poor nutrition. She is being taken care of by son who is doing his best to provide care but the best is not good enough. The patient is refusing to go to the long term. Son is not willing to put her in the long term. Prognosis for healing is not good but she is going to be followed by Home Health Care and Wound Care. CONDITION: Stable. The patient was seen and examined with Nurse Practitioner. TIME SPENT: More than 30 minutes. Plan and coordination of the patient's care discussed in the presence of nurse. PETE
--- NOTE | 2018-02-10 14:44 | PN ---
02/02/18: Level 5 02/03/18: Intermediate 02/04/18: Intermediate 02/05/18: Intermediate 02/06/18: Intermediate 02/07/18: Brief 02/08/18: D as in discharge MTDD
--- NOTE | 2018-02-11 13:06 | DS ---
DATE OF SERVICE: 02/08/18 FINAL DIAGNOSIS: 1. Infected deep puncture dorsal aspect right foot 2. Abraised right calf 3. Alzheimer's Dementia 4. COPD 5. Anemia 6. MDS 7. Depression 8. Melanoma 9. Glaucoma left greater than right 10.Status post Cholecystectomy LAST VITALS: Temperature 98.5, pulse 64, respiratory rate 20, blood pressure 130/56 and pulse ox 98%. DISCHARGE INSTRUCTIONS: Continue home medications per nursing sheets. May take Tylenol for pain. Wound Care: Wet to dry dressing to wounds twice a day. Home Health to assist with dressing changes. You have been referred to the [facility] at [facility]. Dr. Domingo Requests you to be seen on this Thursday. They should have an appointment time. Followup with Dr. Holland on ThursdayFebruary 15 at 10am. Followup with Dr. Domingo on ThursdayFebruary 12 at 100pm. Patient is full code. MEDICATIONS AT DISCHARGE: Tylenol 650mg PO Q 6 hours PRN Aspirin 325mg PO daily Celexa 20mg PO daily Aricept 5mg PO QPM Cymbalta 60mg PO daily Memantine XR 28mg Po daily Protonix 40mg PO QDAC ALLERGIES: No known allergies NEW PRESCRIPTIONS: Keflex 500mg take one by mouth three times a day for 7 days. Take until all gone. DIET INSTRUCTIONS: As tolerated ACTIVITY: Keep right leg elevated as much as possible. Ambulate only as needed. SMOKING: N/A DISEASE SPECIFIC EDUCATION: Wound Care Medications Activity Home Health Followup Appointment Wound Care Clinic HOSPITAL COURSE: This is an 88 year old female who was a direct admit from our office. She had been to the emergency room a couple days before presenting to our office after experiencing a fall from a four doug[place] and had scraps and bruises to her right lower extremity. She was placed on Keflex in the emergency room. She presented to our office she did have some superficial abrasions to the right calf however she had a large 1x2in puncture wound on the dorsal aspect of her right foot which had malodorous drainage, was red, her foot was swollen with surrounding erythema. It was clearly infected. She was running a low grade temperature of 99. Again she had already been on Keflex for two days. We subsequently admitted her and placed on IV Rocephin 1 gram daily along with Clindamycin initially 150mg PO Q 8 hours. She was in the hospital for two days. Dr. Domingo was consulted for wound care. He wanted to wait for a lot of the swelling to go down before he debrided as x-ray did show no evidence of osteomyelitis but did show some foreign in the puncture wound on the dorsal aspect of the right foot. He also added Bactroban to be applied three times daily. She was instructed to lay with her right foot elevated. After two days the redness had slightly improved and swelling was about the same. I increased her Clindamycin to 300mg PO Q 8 hours. The wound slowly began to improve. The abrasions to the calf started to heal first with no erythema or drainage they started to scab. Dr. Domingo ordered wet to dry dressings on the wound over the weekend. He also discontinued the Clindamycin. On admission wound cultures were done of both sites and the sensitivity was appropriate with treatment with Rocephin. Dr. Domingo debrided the wound on 02/07/18 in order to continue the wet to dry dressing, he also ordered to continue the Bactroban to the wounds on the calf. He is agreeable for her discharge today. She has been afebrile for the past 48 hours. He has also ordered starting Thursday he ordered on compression dressing to help with the swelling of the right foot. This has help tremendously. Erythema has improved as well as purulent drainage. She will go home on Keflex 500mg three times a day PO for the next [address] Domingo would like her to discontinue the Silvadene and the Bactroban. She is to continue the wet to dry dressings at home. Her son was with her; information and instruction has been given to him on how to do the dressings. She is agreeable to have home health come in and help with dressing changes. She is to see Dr. Domingo at Wound Care on Thursday of this week as well as see us on Thursday and then she will see Dr. Domingo again next week. If signs and symptoms do not continue to improve she is instructed to return sooner. She is to keep her leg elevated at home. She is instructed to keep her leg elevated as much as possible and keep it clean and dry. We will followup with her this week. TIME SPENT: More than 60 minutes. PETE
== END 2018-02-08 13:25 | disposition home or self-care (01) | DRG 605 ==
LOC: MEDSURG B 14:33
PROVIDERS: ADMIT Internal Medicine; ATTEND Internal Medicine
PROC: 0HBMXZZ Excision of Right Foot Skin, External Approach (ICD-10-PCS; principal; 2018-02-05)
PROC: 0HBKXZZ Excision of Right Lower Leg Skin, External Approach (ICD-10-PCS; 2018-02-05)
DX: S91.331A Puncture wound without foreign body, right foot, initial encounter (principal); F02.81 Dementia in other diseases classified elsewhere, unspecified severity, with behavioral disturbance; L08.9 Local infection of the skin and subcutaneous tissue, unspecified; B96.89 Other specified bacterial agents as the cause of diseases classified elsewhere; V86.75XA Person on outside of 3- or 4- wheeled all-terrain vehicle (ATV) injured in nontraffic accident, initial encounter; W18.39XA Other fall on same level, initial encounter; Y93.89 Activity, other specified; Y92.096 Garden or yard of other non-institutional residence as the place of occurrence of the external cause; S80.811A Abrasion, right lower leg, initial encounter; G30.1 Alzheimer's disease with late onset; J44.9 Chronic obstructive pulmonary disease, unspecified; D64.9 Anemia, unspecified; D46.9 Myelodysplastic syndrome, unspecified; F32.9 Major depressive disorder, single episode, unspecified; C43.9 Malignant melanoma of skin, unspecified; H40.9 Unspecified glaucoma
CPT/HCPCS: 36415; 80053; 81001; 82550; 84484; 85008; 85025; 87070; 87077; 87186; 93005; 93010

== ENCOUNTER 2018-02-10 11:16 | Outpatient (CLI) | END 2018-02-10 11:17 | disposition home or self-care (01) | LOC: WOUND 11:16 | PROVIDERS: ATTEND Nurse Practitioner Family | DX: S80.811S Abrasion, right lower leg, sequela (principal); S91.331A Puncture wound without foreign body, right foot, initial encounter; S91.031A Puncture wound without foreign body, right ankle, initial encounter; F03.90 Unspecified dementia, unspecified severity, without behavioral disturbance, psychotic disturbance, mood disturbance, and anxiety; D64.9 Anemia, unspecified | CPT/HCPCS: 11042; 99202 ==

== ENCOUNTER 2018-02-17 11:12 | Outpatient (CLI) | END 2018-02-17 11:13 | disposition home or self-care (01) | LOC: WOUND 11:12 | PROVIDERS: ATTEND Nurse Practitioner Family | DX: S80.811S Abrasion, right lower leg, sequela (principal); S91.331A Puncture wound without foreign body, right foot, initial encounter; S91.031A Puncture wound without foreign body, right ankle, initial encounter; F03.90 Unspecified dementia, unspecified severity, without behavioral disturbance, psychotic disturbance, mood disturbance, and anxiety; D64.9 Anemia, unspecified ==

== ENCOUNTER 2018-02-24 11:11 | Outpatient (CLI) | END 2018-02-24 11:12 | disposition home or self-care (01) | LOC: WOUND 11:11 | PROVIDERS: ATTEND Nurse Practitioner Family | DX: S80.811S Abrasion, right lower leg, sequela (principal); S91.331A Puncture wound without foreign body, right foot, initial encounter; S91.031A Puncture wound without foreign body, right ankle, initial encounter; F03.90 Unspecified dementia, unspecified severity, without behavioral disturbance, psychotic disturbance, mood disturbance, and anxiety; D64.9 Anemia, unspecified | CPT/HCPCS: 11042; 11045 ==

== ENCOUNTER 2018-03-10 10:27 | Outpatient (CLI) | payer OTHER | END 2018-03-10 10:28 | disposition home or self-care (01) | LOC: WOUND 10:27 | PROVIDERS: ATTEND Nurse Practitioner Family | DX: S80.811S Abrasion, right lower leg, sequela (principal); S91.331A Puncture wound without foreign body, right foot, initial encounter; S91.031A Puncture wound without foreign body, right ankle, initial encounter; F03.90 Unspecified dementia, unspecified severity, without behavioral disturbance, psychotic disturbance, mood disturbance, and anxiety; D64.9 Anemia, unspecified | CPT/HCPCS: 11042 ==

== ENCOUNTER 2018-03-17 10:36 | Outpatient (CLI) | payer OTHER | END 2018-03-17 10:37 | disposition home or self-care (01) | LOC: WOUND 10:36 | PROVIDERS: ATTEND Nurse Practitioner Family | DX: S91.331A Puncture wound without foreign body, right foot, initial encounter (principal); S91.031A Puncture wound without foreign body, right ankle, initial encounter; F03.90 Unspecified dementia, unspecified severity, without behavioral disturbance, psychotic disturbance, mood disturbance, and anxiety; D64.9 Anemia, unspecified | CPT/HCPCS: 11042; 99213 ==

== ENCOUNTER 2018-03-24 08:59 | Outpatient (CLI) | END 2018-03-24 09:00 | disposition home or self-care (01) | LOC: WOUND 08:59 | PROVIDERS: ATTEND Nurse Practitioner Family | DX: S91.331A Puncture wound without foreign body, right foot, initial encounter (principal); S91.031A Puncture wound without foreign body, right ankle, initial encounter; F03.90 Unspecified dementia, unspecified severity, without behavioral disturbance, psychotic disturbance, mood disturbance, and anxiety; D64.9 Anemia, unspecified | CPT/HCPCS: 11042 ==

== ENCOUNTER 2018-03-31 10:59 | Outpatient (CLI) | END 2018-03-31 11:00 | disposition home or self-care (01) | LOC: WOUND 10:59 | PROVIDERS: ATTEND Nurse Practitioner Family | DX: S91.331A Puncture wound without foreign body, right foot, initial encounter (principal); S91.031A Puncture wound without foreign body, right ankle, initial encounter; F03.90 Unspecified dementia, unspecified severity, without behavioral disturbance, psychotic disturbance, mood disturbance, and anxiety; D64.9 Anemia, unspecified | CPT/HCPCS: 11042 ==

== ENCOUNTER 2018-04-07 10:40 | Outpatient (CLI) | payer OTHER | END 2018-04-07 10:41 | disposition home or self-care (01) | LOC: WOUND 10:40 | PROVIDERS: ATTEND Nurse Practitioner Family | DX: S91.331A Puncture wound without foreign body, right foot, initial encounter (principal); F03.90 Unspecified dementia, unspecified severity, without behavioral disturbance, psychotic disturbance, mood disturbance, and anxiety; D64.9 Anemia, unspecified ==

== ENCOUNTER 2018-04-14 11:03 | Outpatient (CLI) | payer OTHER | END 2018-04-14 11:04 | disposition home or self-care (01) | LOC: WOUND 11:03 | PROVIDERS: ATTEND Nurse Practitioner Family | DX: S91.331A Puncture wound without foreign body, right foot, initial encounter (principal); F03.90 Unspecified dementia, unspecified severity, without behavioral disturbance, psychotic disturbance, mood disturbance, and anxiety; D64.9 Anemia, unspecified ==

== ENCOUNTER 2018-04-21 11:12 | Outpatient (CLI) | END 2018-04-21 11:13 | disposition home or self-care (01) | LOC: WOUND 11:12 | PROVIDERS: ATTEND Nurse Practitioner Family | DX: S91.311A Laceration without foreign body, right foot, initial encounter (principal); F03.90 Unspecified dementia, unspecified severity, without behavioral disturbance, psychotic disturbance, mood disturbance, and anxiety; D64.9 Anemia, unspecified ==

== ENCOUNTER 2018-04-28 10:51 | Outpatient (CLI) | END 2018-04-28 10:52 | disposition home or self-care (01) | LOC: WOUND 10:51 | PROVIDERS: ATTEND Nurse Practitioner Family | DX: S91.331A Puncture wound without foreign body, right foot, initial encounter (principal); F03.90 Unspecified dementia, unspecified severity, without behavioral disturbance, psychotic disturbance, mood disturbance, and anxiety; D64.9 Anemia, unspecified ==

== ENCOUNTER 2018-05-12 10:54 | Outpatient (CLI) | payer OTHER | END 2018-05-12 10:55 | disposition home or self-care (01) | LOC: WOUND 10:54 | PROVIDERS: ATTEND Nurse Practitioner Family | DX: S91.331A Puncture wound without foreign body, right foot, initial encounter (principal); F03.90 Unspecified dementia, unspecified severity, without behavioral disturbance, psychotic disturbance, mood disturbance, and anxiety; D64.9 Anemia, unspecified | CPT/HCPCS: 99211; 99213 ==

== ENCOUNTER 2018-09-09 03:45 | Inpatient (IN) ==
[2018-09-09] MEDS ORDERED: LACTATED RINGERS 1,000 ML IV STA (04:13)
[2018-09-09] MEDS ORDERED: XOPENEX 0.63 MG NEB STA (04:24)
--- NOTE | 2018-09-09 04:38 | ED.PDOC ---
General ED Provider: Dr. KIRSTIN KAUR Chief Complaint: Respiratory Complaint Stated Complaint: Patient is brought by ambulace after son called when he found her sitting on the floor. Conplained of chest conjestion and cough with sputum production. Denies any chest pain Time Seen by Physician: 04:00 Mode of Arrival: Ambulance Information Source: Patient, EMT Exam Limitations: Other ([place] of hearing ) Primary Care Provider: GEORGI DARNELL Nursing and Triage Documentation Reviewed and Agree: Yes Does patient meet sepsis criteria?: Yes If yes, has appropriate treatment been initiated?: Yes System Inflammatory Response Syndrome: Temp 101F or Greater, Pulse >90 BPM Sepsis Protocol: For patient's 13 years and over: Temp is 96.8 and below OR 101 and greater Pulse >90 BPM Resp >20/minute Acutely Altered Mental Status Are patient's symptoms suggestive of a new infection, such as: -Pneumonia -Skin, Soft Tissue -Endocarditis -UTI -Bone, Joint Infection -Implantable Device -Acute Abdominal Infection -Wound Infection -Meningitis -Blood Stream Catheter Infection -Unknown Review of Systems - Review Of Systems Constitutional: Reports: No symptoms Eyes: Reports: No symptoms Ears, Nose, Mouth, Throat: Reports: No symptoms (except hearing loss ) Respiratory: Reports: Cough, Short of air Cardiac: Reports: No symptoms GI: Reports: Blood streaked bowels (in colostomy ). Denies: Abdominal pain, Nausea, Poor appetite : Reports: No symptoms Musculoskeletal: Reports: No symptoms Skin: Reports: No symptoms Neurological: Reports: Anxiety Endocrine: Reports: No symptoms Hematologic/Lymphatic: Reports: No symptoms All Other Systems: Reviewed and Negative Past Medical History - Past Medical History Previously Healthy: Yes Endocrine: Reports: None Cardiovascular: Reports: None Respiratory: Reports: None 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 ) Gastrointestinal: Reports: GERD Genitourinary: Reports: None Neuro/Psych: Reports: Anxiety, Depression, Dementia Musculoskeletal: Reports: None Cancer: Reports: None Last Menstrual Period: UNKNOWN - Surgical History General Surgical History: Reports: Other (Colostomy due to tear of abdomen ) - Family History Family History: Reports: Unknown - Social History Smoking Status: Current every day smoker, Light tobacco smoker Hx Substance Use: No Alcohol Screening: None - Immunizations Tetanus Shot up to Date: (UNKNOWN) Physical Exam - Physical Exam Appearance: Ill-appearing Ill-appearing: Moderate Pain Distress: None Eyes: JOSEY, EOMI ENT: Ears normal (heard of hearing ) Respiratory: Breath sounds diminished, Wheezes Cardiovascular: Tachycardia GI/: Soft, Nontender (colostomy bag with blood ) Musculoskeletal: Normal strength, ROM intact, No edema, No calf tenderness Skin: Warm, Dry, Normal color Neurological: Sensation intact, Motor intact, Cranial nerves intact, Alert, Oriented Psychiatric: Anxious Interpretation - Radiology Interpretation Radiology Interpretation By: Radiologist Radiology Results: Negative Exam Interpreted: Portable CXR - Stitch Welder Rate: Tachy Rhythm: Sinus Ectopy: None - EKG Interpretation Time of EKG #1: 04:10 Rate: Tachy Rhythm: Sinus Ectopy: None [place]: Right ST Segment: Normal Interpretation: Anterior infarct age undetermined Re-Evaluation - Re-Evaluation Time of Re-Evaluation: 05:32 Status: Improved Vital Signs Stable: Yes Lungs: Other (better air movement.) Skin: Warm and Dry Neuro: Alert and Oriented X3 CV: RRR Physician Notification - Case Discussed Physician Notified: Dr Darnell Time of Notification: 06:30 (Admit to SCU) Critical Care Note - Critical Care Note Total Time (mins): 45 Course - Course Hematology/Chemistry: 09/11/18 04:30 09/11/18 04:30 Orders, Labs, Meds: Lab Review 09/09/18 09/09/18 09/09/18 04:14 04:20 04:20 WBC 4.85 RBC 3.24 L Hgb 12.7 Hct 35.9 L MCV 110.8 H MCH 39.2 H MCHC 35.4 RDW Coeff of Alonso 14.5 Plt Count 113 L Immature Gran % (Auto) 0.8 Neut % (Auto) 75.9 Lymph % (Auto) 14.0 [place] % (Auto) 9.1 Eos % (Auto) 0.0 Baso % (Auto) 0.2 Immature Gran # (Auto) 0.0 Neut # (Auto) 3.7 Lymph # (Auto) 0.7 [place] # (Auto) 0.4 Eos # (Auto) 0.0 Baso # (Auto) 0.0 Anisocytosis Not present Macrocytosis 1+ Puncture Site Rbrach O2 Saturation 91.0 L ABG pH 7.456 H ABG pCO2 34.5 L ABG pO2 57.0 L* ABG HCO3 24.3 ABG Total CO2 25 ABG Base Excess 0 Boy Test + FiO2 % 21.0 Sodium 130.2 L Potassium 3.31 L Chloride 93.1 L Carbon Dioxide 30.2 H Anion Gap 10.21 BUN 10.9 Creatinine 0.45 L Estimated GFR (MDRD) 131.00 BUN/Creatinine Ratio 24.22 Glucose 113.1 H Lactic Acid Calcium 8.98 Total Bilirubin 1.89 H AST 110.9 H ALT 35.1 H Alkaline Phosphatase 84.1 Total Protein 6.94 Albumin 4.23 Globulin 2.71 Albumin/Globulin Ratio 1.56 Procalcitonin Influ A Molecular Assay Influ B Molecular Assay 09/09/18 09/09/18 09/09/18 04:20 04:20 06:50 WBC RBC Hgb Hct MCV MCH MCHC RDW Coeff of Alonso Plt Count Immature Gran % (Auto) Neut % (Auto) Lymph % (Auto) [place] % (Auto) Eos % (Auto) Baso % (Auto) Immature Gran # (Auto) Neut # (Auto) Lymph # (Auto) [place] # (Auto) Eos # (Auto) Baso # (Auto) Anisocytosis Macrocytosis Puncture Site O2 Saturation ABG pH ABG pCO2 ABG pO2 ABG HCO3 ABG Total CO2 ABG Base Excess Boy Test FiO2 % Sodium Potassium Chloride Carbon Dioxide Anion Gap BUN Creatinine Estimated GFR (MDRD) BUN/Creatinine Ratio Glucose Lactic Acid 1.31 Calcium Total Bilirubin AST ALT Alkaline Phosphatase Total Protein Albumin Globulin Albumin/Globulin Ratio Procalcitonin 0.54 Influ A Molecular Assay Positive by naat H Influ B Molecular Assay Negative by naat Orders Category Date Time Status ABG DRAW REQUEST Routine CARDIO 09/09/18 04:14 Completed NEBULIZER TREATMENT Routine CARDIO 09/09/18 06:44 Active NEBULIZER TREATMENT Stat CARDIO 09/09/18 04:25 Completed OXYGEN Routine CARDIO 09/09/18 06:39 Active ACTIVITY .Early Mobilization for VTE Prevention CARE 09/09/18 06:40 Active INTAKE & OUTPUT Q8HR CARE 09/09/18 06:39 Active NPO REMINDER: IMAGING ONCE CARE 09/09/18 05:19 Completed VITAL SIGNS Q8HR CARE 09/09/18 06:39 Active REGULAR DIET DIETARY 09/09/18 Breakfast Ordered ED APPLY O2 .ONCE EMERGENCY 09/09/18 04:13 Active ED NURSE RECRUITER APPLIED .ONCE EMERGENCY 09/09/18 04:13 Active ED VITAL SIGNS Q1HR EMERGENCY 09/09/18 04:13 Completed ABG Stat LAB 09/09/18 04:14 Completed BLOOD CULTURE (ED ONLY) Stat LAB 09/09/18 04:20 Results CBC W/ AUTO DIFF DAILY@0600 LAB 09/10/18 04:30 Completed CBC W/ AUTO DIFF DAILY@0600 LAB 09/11/18 04:30 Completed CBC W/ AUTO DIFF Stat LAB 09/09/18 04:20 Completed COMPREHENSIVE METABOLIC PANEL DAILY@0600 LAB 09/10/18 04:30 Completed COMPREHENSIVE METABOLIC PANEL DAILY@0600 LAB 09/11/18 04:30 Completed COMPREHENSIVE METABOLIC PANEL Stat LAB 09/09/18 04:20 Completed FLU A/B MOLECULAR Stat LAB 09/09/18 06:50 Completed LACTIC ACID Stat LAB 09/09/18 04:20 Completed PROCALCITONIN Stat LAB 09/09/18 04:20 Completed RBC MORPHOLOGY Stat LAB 09/09/18 04:20 Completed Acetaminophen [Tylenol] MEDS 09/09/18 06:39 Active 650 mg PO Q4H PRN Azithromycin [Zithromax] MEDS 09/10/18 09:00 Active 250 mg PO DAILY Azithromycin [Zithromax] MEDS 09/09/18 05:02 Discontinued 500 mg PO ONCE STA Ceftriaxone Sodium [Rocephin] MEDS 09/09/18 05:16 Discontinued 1 gm .ROUTE .STK-MED ONE Ceftriaxone Sodium [Rocephin] 1 gm MEDS 09/09/18 09:00 Active 0.9 % Sodium Chloride [Sodium Chloride] 50 ml IV DAILY Ceftriaxone Sodium [Rocephin] 1 gm MEDS 09/09/18 05:02 Discontinued 0.9 % Sodium Chloride [Sodium Chloride] 50 ml IV ONCE Citalopram Hydrobromide [Celexa] MEDS 09/09/18 09:00 Active 20 mg PO DAILY Ipratropium/Albuterol Neb [Duoneb] MEDS 09/09/18 10:00 Active 1 vial NEB RTQID Levalbuterol HCl [Xopenex 0.63 mg] MEDS 09/09/18 04:24 Discontinued 1 vial NEB ONCE STA Methylprednisolone Sod Succ/Pf [Solu-Medrol 125 mg] MEDS 09/09/18 05:02 Discontinued 125 mg IVP ONCE STA Methylprednisolone Sod Succ/Pf [Solu-Medrol 125 mg] MEDS 09/09/18 13:00 Discontinued 60 mg IVP Q8HR Ondansetron HCl/Pf [Zofran 4 mg/2 ml] MEDS 09/09/18 06:39 Active 4 mg IVP Q6H PRN Pantoprazole Sodium [Protonix IV] MEDS 09/09/18 04:42 Discontinued 40 mg IVP ONCE STA Pantoprazole Sodium [Protonix IV] MEDS 09/09/18 07:30 Discontinued 40 mg IVP Q10H Ringers Lactated Solution [Lactated Ringers] 1,000 ml MEDS 09/09/18 04:13 Discontinued IV 250 mls/hr Sodium Chloride 0.9% [Sodium Chloride] 1,000 ml MEDS 09/09/18 07:00 Discontinued IV 125 mls/hr RESUSCITATION STATUS Routine OTHERS 09/09/18 06:39 Ordered CHEST, 1V AP ONLY Stat RADS 09/09/18 04:[address] ABDOMEN/PELVIS W CONTRAST Stat RADS 09/09/18 05:18 Completed Medications Generic Name Dose Route Start Last Admin Trade Name Freq PRN Reason Stop Dose Admin Acetaminophen 650 mg 09/09/18 06:39 Tylenol PO Q4H PRN fever or mild pain Albuterol/Ipratropium 1 vial 09/09/18 10:00 09/11/18 05:15 Duoneb NEB 1 vial RTQID VELIA Administration Azithromycin 250 mg 09/10/18 09:00 09/10/18 09:57 Zithromax PO 09/13/18 09:01 250 mg DAILY VELIA Administration Citalopram Hydrobromide 20 mg 09/09/18 09:00 09/10/18 09:57 Celexa PO 20 mg DAILY VELIA Administration Donepezil HCl 5 mg 09/09/18 21:00 09/10/18 21:06 Aricept PO 5 mg BEDTIME VELIA Administration Duloxetine HCl 60 mg 09/09/18 09:00 09/10/18 09:57 Cymbalta PO 60 mg DAILY VELIA Administration Ceftriaxone Sodium 1 gm/ 50 mls @ 75 mls/hr 09/09/18 09:00 09/10/18 09:57 Sodium Chloride IV 75 mls/hr DAILY VELIA Administration Latanoprost 1 drop 09/09/18 21:00 09/10/18 21:12 Xalatan OP 1 drop BEDTIME VELIA Administration Methylprednisolone Sodium Succinate 100 mg 09/10/18 13:00 09/11/18 06:06 Solu-Medrol 125 Mg IVP 100 mg Q8HR VELIA Administration Metronidazole 500 mg 09/09/18 13:00 09/11/18 06:07 Flagyl PO 500 mg Q8HR VELIA Administration Nicotine 1 patch 09/10/18 10:00 09/10/18 12:08 Nicoderm 21 Mg TD 1 patch DAILY VELIA Administration Ondansetron HCl 4 mg 09/09/18 06:39 Zofran 4 Mg/2 Ml IVP Q6H PRN Nausea / Vomiting Oseltamivir Phosphate 75 mg 09/09/18 09:00 09/10/18 21:09 Tamiflu PO 09/14/18 08:59 75 mg Q12HR VELIA Administration Pantoprazole Sodium 40 mg 09/09/18 21:00 09/10/18 21:03 Protonix Iv IVP 40 mg Q12HR VELIA Administration Potassium Chloride 40 meq 09/09/18 17:30 09/10/18 16:58 K-Dur PO 40 meq BIDWM VELIA Administration Sucralfate 1 gm 09/09/18 11:00 09/11/18 06:07 Carafate PO 1 gm ACHS VELIA Administration Discontinued Medications Generic Name Dose Route Start Last Admin Trade Name Freq PRN Reason Stop Dose Admin Azithromycin 500 mg 09/09/18 05:02 09/09/18 05:25 Zithromax PO 09/09/18 05:03 500 mg ONCE STA Administration Lactated Ringer's 1,000 mls @ 250 mls/hr 09/09/18 04:13 09/09/18 04:21 Lactated Ringers IV 09/09/18 08:12 250 mls/hr .Q4H STA Administration Ceftriaxone Sodium 1 gm/ 50 mls @ 75 mls/hr 09/09/18 05:02 09/09/18 05:26 Sodium Chloride IV 09/09/18 05:41 75 mls/hr ONCE STA Administration Sodium Chloride 1,000 mls @ 125 mls/hr 09/09/18 07:00 09/10/18 02:25 Sodium Chloride IV 125 mls/hr .Q8H VELIA Administration Levalbuterol HCl 1 vial 09/09/18 04:24 09/09/18 04:35 Xopenex 0.63 Mg NEB 09/09/18 04:25 1 vial ONCE STA Administration Levalbuterol HCl 1 vial 09/09/18 14:00 09/09/18 22:11 Xopenex 1.25 Mg NEB Not Given RTTID VELIA Methylprednisolone Sodium Succinate 125 mg 09/09/18 05:02 09/09/18 05:23 Solu-Medrol 125 Mg IVP 09/09/18 05:03 125 mg ONCE STA Administration Methylprednisolone Sodium Succinate 60 mg 09/09/18 13:00 09/10/18 06:13 Solu-Medrol 125 Mg IVP 60 mg Q8HR VELIA Administration Pantoprazole Sodium 40 mg 09/09/18 04:42 09/09/18 05:21 Protonix Iv IVP 09/09/18 04:43 40 mg ONCE STA Administration Pantoprazole Sodium 40 mg 09/09/18 07:30 09/09/18 10:13 Protonix Iv IVP Not Given Q10H VELIA Pantoprazole Sodium 40 mg 09/09/18 10:00 09/09/18 11:32 Protonix Iv IVP Not Given Q12H VELIA Vital Signs: Temp Pulse Resp BP Pulse Ox 09/09/18 03:55 101.7 F H 153 H 36 H 114/66 87 L Departure - Departure Time of Disposition: 06:58 Disposition: ADMITTED INPATIENT Discharge Problem: COPD with exacerbation, Influenza A GI bleed Qualifiers: GI bleed type/associated pathology: unspecified gastrointestinal hemorrhage type Qualified Code(s): K92.2 - Gastrointestinal hemorrhage, unspecified Right lower lobe pneumonia Qualifiers: Pneumonia type: due to unspecified organism Qualified Code(s): J18.1 - Lobar pneumonia, unspecified organism Condition: Fair Pt referred to PMD for follow-up: Yes IPMP verified?: No Allergies/Adverse Reactions: Allergies No Known Allergies Allergy (Verified 09/09/18 04:04) Home Medications: Ambulatory Orders Duloxetine HCl [Cymbalta] 60 mg PO D 04/12/14 Pantoprazole Sodium [Protonix] 40 mg PO DAILY 04/12/14 Donepezil HCl [Aricept] 5 mg PO DAILY 12/24/16 Citalopram Hydrobromide [Celexa] 20 mg PO DAILY 02/03/18 Latanoprost/Pf [Latanoprost 0.005% Eye Drop] 1 drop OP DAILY 09/09/18
[2018-09-09] MEDS ORDERED: PROTONIX IV IVP STA (04:42)
--- NOTE | 2018-09-09 04:55 | DI ---
EXAM: Portable chest HISTORY: Shortness of breath COMPARISON: Single-view chest 02/02/2018 FINDINGS: Patient is rotated to the left. The heart is normal in size. Atherosclerotic changes are seen involving the aortic arch.. There is no evidence of infiltrate or effusion. No acute osseous abnormalities are identified. IMPRESSION: No evidence of active pulmonary disease or interval change
[2018-09-09] MEDS ORDERED: ZITHROMAX PO STA (05:02)
[2018-09-09] MEDS ORDERED: ROCEPHIN 1 GM in SODIUM CHLORIDE 50 ML IV STA (05:02)
[2018-09-09] MEDS ORDERED: SOLU-MEDROL 125 MG IVP STA (05:02)
[2018-09-09] MEDS ORDERED: ROCEPHIN ONE (05:16)
[2018-09-09] MEDS ORDERED: TYLENOL PO PRN (06:39)
[2018-09-09] MEDS ORDERED: ZOFRAN 4 MG/2 ML IVP PRN (06:39)
--- NOTE | 2018-09-09 06:51 | CT ---
EXAM: CT scan abdomen pelvis with contrast HISTORY: GI bleeding of the colostomy site COMPARISON: None. FINDINGS: Contiguous axial images obtained through the right pelvis following uneventful administrat ion of intravenous contrast utilize 3-mm collimation. Sagittal and coronal reconstructions were imag ed and reviewed. Patchy consolidation is noted at the right lung base which atelectasis and/or pneumo live. The gallbladder was not identified. The liver pancreas spleen and adrenal glands have normal e nhanced CT appearance. The kidneys excrete contrast in a normal fashion bilaterally. Atheroscleroti c changes are seen involving the aorta and iliacs without aneurysm formation. Diverticulosis withou t diverticulitis is seen in the sigmoid colon.. Thickening is seen in the left colon which may be re lated to underdistension versus colitis. There is a left lower quadrant colostomy. There is no free fluid. Bone windows reveal osteopenia degenerative changes throughout the lumbar spine and bilatera l hip IMPRESSION: Right lower lobe pneumonia versus atelectasis. Extensive ASVD without aneurysm. Diverticulosis without diverticulitis. Thickening of the left colon which may be related to underdistension versus colitis . Left lower quadrant colostomy site. No evidence free fluid
[2018-09-09] MEDS ORDERED: NON-FORMULARY MEDICATION (Duloxetine Hcl [Cymbalta] 60 MG) PO SCH (07:00)
[2018-09-09] MEDS ORDERED: PROTONIX IV IVP SCH ×2 (07:30→10:00)
[2018-09-09 08:30] VITALS: BMI 19.9
[2018-09-09] MEDS ORDERED: NON-FORMULARY MEDICATION (Donepezil Hcl [Aricept] 5 MG) PO SCH (09:00)
[2018-09-09] MEDS: DUONEB NEB SCH ×3 (09:52→21:33)
[2018-09-09] MEDS: CYMBALTA PO SCH (10:21)
[2018-09-09] MEDS: TAMIFLU PO SCH ×2 (10:21→22:02)
[2018-09-09] MEDS: CELEXA PO SCH (10:22)
[2018-09-09] MEDS: CARAFATE PO SCH ×3 (10:22→22:03)
[2018-09-09] MEDS: SODIUM CHLORIDE 1,000 ML IV SCH ×2 (10:25→18:09)
[2018-09-09] MEDS: ROCEPHIN 1 GM in SODIUM CHLORIDE 50 ML IV SCH (10:30)
[2018-09-09] MEDS: SOLU-MEDROL 125 MG IVP SCH ×2 (14:00→22:03)
[2018-09-09] MEDS: FLAGYL PO SCH ×2 (14:00→22:03)
[2018-09-09] MEDS ORDERED: K-DUR ONE (16:37)
[2018-09-09] MEDS: K-DUR PO SCH (16:38)
[2018-09-09] MEDS: ARICEPT PO SCH (22:02)
[2018-09-09] MEDS: PROTONIX IV IVP SCH (22:04)
[2018-09-09] MEDS: XALATAN OP SCH (22:05)
[2018-09-09] MEDS: XOPENEX 1.25 MG NEB SCH (22:11)
[2018-09-10] MEDS: SODIUM CHLORIDE 1,000 ML IV SCH (02:25)
[2018-09-10] MEDS: DUONEB NEB SCH ×3 (04:47→14:21)
[2018-09-10] MEDS: SOLU-MEDROL 125 MG IVP SCH ×3 (06:13→21:03)
[2018-09-10] MEDS: FLAGYL PO SCH ×3 (06:17→21:10)
[2018-09-10] MEDS: CARAFATE PO SCH ×4 (06:17→21:02)
--- NOTE | 2018-09-10 07:54 | HP ---
DATE OF SERVICE: 09/09/18 REASON FOR HOSPITALIZATION/HISTORY OF PRESENT ILLNESS: 88 year old female who presented to the emergency room with cough, weakness and fever. PAST MEDICAL HISTORY: Myelodysplastic syndrome History of collectomy years ago Sciatica Dementia COPD Anemia Depression History of Melanoma on right leg Glaucoma Generalized anxiety disorder PAST SURGICAL HISTORY: Status post colectomy with colostomy bag this was years ago Melanoma, right left to have this removed REVIEW OF SYSTEMS: CONSTITUTIONAL: No night sweats. No fatigue, malaise, lethargy. Fever. Weakness. HEENT: Eyes: No visual changes. No eye pain. No eye discharge. ENT: No runny nose. No epistaxis. No sinus pain. No sore throat. No odynophagia. No ear pain. No congestion. RESPIRATORY: Cough, no congestion. No hemoptysis. No shortness of breath. CARDIOVASCULAR: No angina symptoms. No CHF symptoms. No atypical chest pain for CAD. No palpitations. No PND. No orthopnea. GASTROINTESTINAL: No abdominal pain. No nausea or vomiting. No diarrhea or constipation. No hematemesis. No hematochezia. GENITOURINARY: No urgency. No frequency. No dysuria. No hematuria. No obstructive symptoms. No discharge. No pain. No significant abnormal bleeding. MUSCULOSKELETAL: No musculoskeletal pain. No joint swelling. No arthritis. NEUROLOGICAL: No headache. No neck pain. No syncope. No seizures. No dizziness. PSYCHIATRIC: Not anxious. No depression. No suicidal thoughts. No homicidal thoughts. SKIN: No rash. No lesions. No wounds. ENDOCRINE: No unexplained weight loss. No weight gain. HEMATOLOGIC/LYMPHATIC: No anemia. No purpura. No petechiae. No prolonged or excessive bleeding. No palpable lymph nodes. PERSONAL/FAMILY/SOCIAL HISTORY: The patient is still and her , Ag, lives [facility] and she lives at home with her son. She is nonsmoker, no alcohol or illicit drug use. MEDICATIONS: Cymbalta 60mg PO daily Protonix 40mg PO daily Aricept 5mg PO daily Celexa 20mg PO daily Latanoprost 7.5ml drops one drop OP daily ALLERGIES: No known allergies PHYSICAL EXAMINATION: GENERAL: The patient is alert and oriented to person, not place and time. VITAL SIGNS: Temperature 101.7, heart rate 110, respiratory rate 20, blood pressure 138/85. HEENT: Head normocephalic, atraumatic. Eyes: Extraocular muscles are intact. Pupils are equal, round and reactive to light and accommodation. Ears: No lesions. Nose appeared normal. Throat: No exudate or erythema. NECK: Supple. No JVD, no carotid bruit. No lymphadenopathy or thyromegaly. LUNGS: Diminished breath sounds bilaterally. Clear to auscultation. Percussion note normal. Chest symmetrical. HEART: S1, S2, no S3. No murmurs. No cyanosis or clubbing. No ascites. Pulses: Dorsalis pedis and posterior tibial pulses +1 to +2 bilaterally. ABDOMEN: Soft. Nontender. Bowel sounds active. No CVA tenderness. No mass felt. EXTREMITIES: No edema. Full range of motion of all extremities, equal. NEUROLOGIC: No focal deficit. Cranial nerves II through XII are grossly intact. No headache, no double vision or headache. SKIN: Not dry. Intact. Turgor - normal. Pale. LYMPHATIC: No palpable lymph nodes/no lymphedema. MUSCULOSKELETAL: Normal joints with no swelling. Muscle tone is normal. LABS: The patient is positive for influenza A. Sodium 130, potassium 3.3, CO2 30.2, BUN 10.9, creatinine 0.45, glucose 113, Total bilirubin 1.89, AST 110, ALT 35, Total protein 6.9, WBC 4.85, RBC 3.24, hgb 12.7, hct 35.9, plt count 113. CT of the chest shows right lower lobe pneumonia versus atelectasis, possible colitis in the left side of the colon. Left sided colectomy site. ASSESSMENT: 1. Influenza A 2. Right lobar pneumonia 3. Generalized weakness 4. Dehydration PLAN: 1. Will admit to [facility] 2. CBC and CMP daily 3. Routine telemetry orders 4. Start Tamiflu 75mg PO twice a day 5. Start Potassium 40mg PO twice a day 6. Rocephin 1 gram IV daily 7. Solu-Cortef 100mg IV Q 8 hours 8. Start Xopenex NEBS treatments three times a day 9. Tylenol 650mg PO Q 4-6 hours PRN for fever 10.IV fluids normal saline at 75cc an hour 11.She is having some bleeding in her colostomy bag, started on Protonix 40mg IV Q 12 hours as well as Carafate three times a day. 12.Zofran 4mg Q 6 hours IV for nausea 13.[place] diet 14.Oxygen at 1-2 liters as needed Will follow her closely. TIME SPENT: More than 70 minutes. MTDD
[2018-09-10] MEDS ORDERED: LATANOPROST OP SCH (09:00)
--- NOTE | 2018-09-10 09:53 | PCM.PROG ---
Attending Provider: ATTENDING PROVIDER: Dr. GEORGI DARNELL This patient is seen with Arti Beck, Nurse Practitioner. DATE OF SERVICE: 09/10/18 SUBJECTIVE: This 88 year old WHITE/ F was hospitalized 09/09/18. The patient is lying in bed resting comfortably. No fever since yesterday morning. She is still with congested cough. No visible blood in colostomy bag this morning. She ate well yesterday afternoon. REVIEW OF SYSTEMS: CONSTITUTIONAL: Weakness. No night sweats. No fatigue, malaise, lethargy. No fever or chills. HEENT: Eyes: No visual changes. No eye pain. No eye discharge. ENT: No runny nose. No epistaxis. No sinus pain. No odynophagia. No congestion. RESPIRATORY: Cough and congestion. No hemoptysis. No shortness of breath. CARDIOVASCULAR: No angina symptoms. No CHF symptoms. No atypical chest pain for CAD. No palpitations. No orthopnea.. GASTROINTESTINAL: No abdominal pain. No nausea or vomiting. No diarrhea or constipation. No hematemesis. No hematochezia. GENITOURINARY: No urgency. No frequency. No dysuria. No hematuria. No obstructive symptoms. No discharge. No pain. No significant abnormal bleeding. MUSCULOSKELETAL: No musculoskeletal pain; no joint swelling. NEUROLOGICAL: Awake, alert, oriented to self. No headache. No neck pain. No syncope. No seizures. No dizziness. PSYCHIATRIC: Not anxious. No depression. No suicidal thoughts. No homicidal thoughts. SKIN: No rash. No lesions. No wounds. ENDOCRINE: No unexplained weight loss. No weight gain. HEMATOLOGIC/LYMPHATIC: No anemia. No purpura. No petechiae. No prolonged or excessive bleeding. No palpable lymph nodes. PHYSICAL EXAMINATION: GENERAL: The patient is awake, alert and oriented to self, lying in bed in no distress. VITAL SIGNS: Temperature 98.5 F, Pulse 70, Respiratory Rate 18, BP 139/70, Pulse Ox 93% HEENT: Head normocephalic, atraumatic. Eyes: Extraocular muscles are intact. Pupils are equal, round and reactive to light and accommodation. Ears: No lesions. Nose appeared normal. Throat: No exudate or erythema. NECK: Supple. No JVD, no carotid bruit. No lymphadenopathy or thyromegaly. LUNGS: Diminished breath sounds, bilateral rhonchi. Percussion note normal. Chest symmetrical. HEART: S1, S2, no S3. No murmurs. No cyanosis or clubbing. No ascites. Pulses: Dorsalis pedis and posterior tibial pulses +1 to +2 both sides. ABDOMEN: Soft. Non-tender. Positive for soft brown stool in colostomy bag. Bowel sounds active. No CVA tenderness. No mass felt. EXTREMITIES: No edema. Full range of motion of all extremities, equal. NEUROLOGIC: No focal deficit. Cranial nerves II through XII are grossly intact. No headache, no double vision or headache. SKIN: Not dry. Intact. Turgor-normal. LYMPHATIC: No palpable lymph nodes/no lymphedema. MUSCULOSKELETAL: Normal joints with no swelling. Muscle tone is normal. LAB REVIEW: 09/10/18 04:30 09/10/18 04:30 09/10/18 04:30: Sodium 134.5, Potassium 4.63, Chloride 100.7, Carbon Dioxide 32.5 H, Anion Gap 5.93, BUN 15.5, Creatinine 0.42 L, Estimated GFR (MDRD) 142.00 , BUN/Creatinine Ratio 36.90, Glucose 140.5 H, Calcium 8.81, Total Bilirubin 0.88, AST 85.6 H D, ALT 30.8, Alkaline Phosphatase 51.8 L D, Total Protein 5.78 L, Albumin 3.43 L, Globulin 2.35, Albumin/Globulin Ratio 1.45 09/10/18 04:30: WBC 3.34 L, RBC 2.44 L, Hgb 9.5 L D, Hct 27.8 L D, MCV 113.9 H, MCH 38.9 H, MCHC 34.2, RDW Coeff of Alonso 14.7, Plt Count 88 L, Immature Gran % ( Auto) 0.9, Neut % (Auto) 82.3, Lymph % (Auto) 9.3 L, [place] % (Auto) 7.5, Eos % ( Auto) 0.0, Baso % (Auto) 0.0, Immature Gran # (Auto) 0.0, Neut # (Auto) 2.8, Lymph # (Auto) 0.3 L, [place] # (Auto) 0.3 L, Eos # (Auto) 0.0, Baso # (Auto) 0.0, Anisocytosis Not present, Macrocytosis 1+ ASSESSMENT: 1. Influenza A. 2. Right lower lobe pneumonia. 3. GI bleed in colostomy seems to have stopped. 4. Anemia secondary to hemodilution. 5. Dementia. PLAN: 1. D/C IV fluids. 2. Increase Solumedrol to 100 mg q.8, Plan and coordination of the patient's care discussed in the presence of Service Tech/Welder and nurse. CONDITION: Stable SCRIBED BY: Angie LYNN scribed while in presence of service performed by Dr. Darnell/Arti Beck APRN on 09/10/18 ([id number])
[2018-09-10] MEDS: K-DUR PO SCH ×2 (09:57→16:58)
[2018-09-10] MEDS: ZITHROMAX PO SCH (09:57)
[2018-09-10] MEDS: TAMIFLU PO SCH ×2 (09:57→21:09)
[2018-09-10] MEDS: PROTONIX IV IVP SCH ×2 (09:57→21:03)
[2018-09-10] MEDS: CELEXA PO SCH (09:57)
[2018-09-10] MEDS: CYMBALTA PO SCH (09:57)
[2018-09-10] MEDS: ROCEPHIN 1 GM in SODIUM CHLORIDE 50 ML IV SCH (09:57)
[2018-09-10] MEDS: NICODERM 21 MG TD SCH (12:08)
--- NOTE | 2018-09-10 14:19 | PN ---
DATE OF SERVICE: 09/09/18 SUBJECTIVE: The patient was seen and examined with the nurse practitioner. She was hospitalized through the emergency room with bronchitis/pneumonia type of symptoms. She is flu influenza A and B positive. She is on IV antibiotics along with Tamiflu. She is demented. CONDITION: Stable for now. TIME SPENT: More than 30 minutes. Plan and coordination of the patient's care discussed in the presence of nurse. PETE
--- NOTE | 2018-09-10 14:22 | PN ---
DATE OF SERVICE: 09/10/18 SUBJECTIVE: The patient is seen and examined with the nurse practitioner. The patient's condition is a lot better. She is coughing much less. Her flu and pneumonia conditions are stable. PLAN: 1. Continue antibiotics. TIME SPENT: More than 30 minutes. Plan and coordination of the patient's care discussed in the presence of nurse. PETE
[2018-09-10] MEDS ORDERED: K-DUR ONE (17:02)
[2018-09-10] MEDS: ARICEPT PO SCH (21:06)
[2018-09-10] MEDS: XALATAN OP SCH (21:12)
[2018-09-11] MEDS: DUONEB NEB SCH ×4 (05:15→20:14)
[2018-09-11] MEDS: SOLU-MEDROL 125 MG IVP SCH ×3 (06:06→20:40)
[2018-09-11] MEDS: CARAFATE PO SCH ×4 (06:07→20:51)
[2018-09-11] MEDS: FLAGYL PO SCH ×3 (06:07→20:50)
[2018-09-11] MEDS: NICODERM 21 MG TD SCH (09:50)
[2018-09-11] MEDS: ROCEPHIN 1 GM in SODIUM CHLORIDE 50 ML IV SCH (09:51)
[2018-09-11] MEDS: CYMBALTA PO SCH (09:52)
[2018-09-11] MEDS: K-DUR PO SCH ×3 (09:52→16:44)
[2018-09-11] MEDS: ZITHROMAX PO SCH (09:53)
[2018-09-11] MEDS: TAMIFLU PO SCH ×2 (09:55→20:52)
[2018-09-11] MEDS: CELEXA PO SCH (09:56)
[2018-09-11] MEDS: PROTONIX IV IVP SCH ×2 (10:25→20:40)
[2018-09-11] MEDS ORDERED: ROBITUSSIN SUGAR-FREE ONE (20:35)
[2018-09-11] MEDS: ARICEPT PO SCH (20:52)
[2018-09-11] MEDS: XALATAN OP SCH (21:08)
[2018-09-12] MEDS: DUONEB NEB SCH ×4 (04:47→20:18)
[2018-09-12] MEDS: CARAFATE PO SCH ×4 (06:21→22:44)
[2018-09-12] MEDS: FLAGYL PO SCH ×3 (06:21→22:45)
[2018-09-12] MEDS: SOLU-MEDROL 125 MG IVP SCH ×3 (06:24→22:45)
[2018-09-12] MEDS: ZITHROMAX PO SCH (09:51)
[2018-09-12] MEDS: TAMIFLU PO SCH ×2 (09:51→22:43)
[2018-09-12] MEDS: CYMBALTA PO SCH (09:52)
[2018-09-12] MEDS: K-DUR PO SCH ×2 (09:52→16:29)
[2018-09-12] MEDS: CELEXA PO SCH (09:52)
[2018-09-12] MEDS: NICODERM 21 MG TD SCH (09:53)
[2018-09-12] MEDS: ROCEPHIN 1 GM in SODIUM CHLORIDE 50 ML IV SCH (09:53)
[2018-09-12] MEDS: PROTONIX IV IVP SCH ×2 (10:03→22:45)
[2018-09-12] MEDS: ARICEPT PO SCH (22:44)
[2018-09-12] MEDS: XALATAN OP SCH (22:50)
[2018-09-13] MEDS: DUONEB NEB SCH ×4 (04:58→20:48)
[2018-09-13] MEDS: SOLU-MEDROL 125 MG IVP SCH (06:33)
[2018-09-13] MEDS: FLAGYL PO SCH (06:34)
[2018-09-13] MEDS: CARAFATE PO SCH ×4 (06:35→20:37)
[2018-09-13] MEDS: CELEXA PO SCH (08:43)
[2018-09-13] MEDS: TAMIFLU PO SCH ×2 (08:43→20:37)
[2018-09-13] MEDS: CYMBALTA PO SCH (08:43)
[2018-09-13] MEDS: ROCEPHIN 1 GM in SODIUM CHLORIDE 50 ML IV SCH (08:43)
[2018-09-13] MEDS: ZITHROMAX PO SCH (08:44)
[2018-09-13] MEDS: PREDNISONE PO SCH ×2 (08:44→16:31)
[2018-09-13] MEDS: PROTONIX IV IVP SCH ×2 (08:44→20:37)
[2018-09-13] MEDS: K-DUR PO SCH ×2 (08:44→16:31)
[2018-09-13] MEDS: NICODERM 21 MG TD SCH (08:46)
--- NOTE | 2018-09-13 08:59 | PCM.PROG ---
Attending Provider: ATTENDING PROVIDER: Dr. GEORGI DARNELL This patient is seen with Arti Beck, Nurse Practitioner. DATE OF SERVICE: 09/13/18 SUBJECTIVE: This 88 year old WHITE/ F was hospitalized 09/09/18. The patient is resting comfortably. She has been eating about 50% of her meals. The patient has not had fever. She still has signs of cough. Blood in her colostomy bag has resolved and labs are stable. REVIEW OF SYSTEMS: CONSTITUTIONAL: No night sweats. No fatigue, malaise, lethargy. No fever or chills. HEENT: Eyes: No visual changes. No eye pain. No eye discharge. ENT: No runny nose. No epistaxis. No sinus pain. No odynophagia. No congestion. RESPIRATORY: Cough, no congestion. No hemoptysis. No shortness of breath. CARDIOVASCULAR: No angina symptoms. No CHF symptoms. No atypical chest pain for CAD. No palpitations. No orthopnea.. GASTROINTESTINAL: No abdominal pain. No nausea or vomiting. No diarrhea or constipation. No hematemesis. No hematochezia. GENITOURINARY: No urgency. No frequency. No dysuria. No hematuria. No obstructive symptoms. No discharge. No pain. No significant abnormal bleeding. MUSCULOSKELETAL: No musculoskeletal pain; no joint swelling. Weakness. NEUROLOGICAL: Awake, alert, oriented to time, place and person. No headache. No neck pain. No syncope. No seizures. No dizziness. PSYCHIATRIC: Not anxious. No depression. No suicidal thoughts. No homicidal thoughts. SKIN: No rash. No lesions. No wounds. ENDOCRINE: No unexplained weight loss. No weight gain. HEMATOLOGIC/LYMPHATIC: No anemia. No purpura. No petechiae. No prolonged or excessive bleeding. No palpable lymph nodes. PHYSICAL EXAMINATION: GENERAL: The patient is awake, alert and oriented, sitting in bed in no distress. VITAL SIGNS: Temperature 98.2 F, Pulse 72, Respiratory Rate 20, BP 162/82, Pulse Ox 94% HEENT: Head normocephalic, atraumatic. Eyes: Extraocular muscles are intact. Pupils are equal, round and reactive to light and accommodation. Ears: No lesions. Nose appeared normal. Throat: No exudate or erythema. NECK: Supple. No JVD, no carotid bruit. No lymphadenopathy or thyromegaly. LUNGS: Rales in right lobe. Clear to auscultation. Percussion note normal. Chest symmetrical. HEART: S1, S2, no S3. No murmurs. No cyanosis or clubbing. No ascites. Pulses: Dorsalis pedis and posterior tibial pulses +1 to +2 both sides. ABDOMEN: Soft. Non-tender. Bowel sounds active. No CVA tenderness. No mass felt. EXTREMITIES: No edema. Full range of motion of all extremities, equal. NEUROLOGIC: No focal deficit. Cranial nerves II through XII are grossly intact. No headache, no double vision or headache. SKIN: Not dry. Intact. Turgor-normal. LYMPHATIC: No palpable lymph nodes/no lymphedema. MUSCULOSKELETAL: Normal joints with no swelling. Muscle tone is normal. LAB REVIEW: 09/13/18 04:15 09/13/18 04:15 09/13/18 04:15: Sodium 131.3 L, Potassium 4.10, Chloride 94.9 L, Carbon Dioxide 31.8 H, Anion Gap 8.70, BUN 12.2, Creatinine 0.49 L, Estimated GFR (MDRD) 119.00 , BUN/Creatinine Ratio 24.89, Glucose 115.4 H, Calcium 9.32, Total Bilirubin 1.42 H, AST 55.8 H, ALT 49.6 H, Alkaline Phosphatase 61.2, Total Protein 6.48, Albumin 3.99, Globulin 2.49, Albumin/Globulin Ratio 1.60 09/13/18 04:15: WBC 3.43 L, RBC 2.80 L, Hgb 10.8 L, Hct 31.3 L, MCV 111.8 H, MCH 38.6 H, MCHC 34.5, RDW Coeff of Alonso 14.6, Plt Count 84 L, Neutrophils % ( Manual) 68.0, Lymphocytes % (Manual) 10.0, Monocytes % (Manual) 10.0, Basophils % (Manual) 2.0 H, Metamyelocytes % 3.0 H, Myelocytes % 2.0 H, Reactive Lymphocytes 5.0, Plt Morphology Comment , Anisocytosis Not present, Macrocytosis 2+, Spherocytes 1+, Ovalocytes 1+ ASSESSMENT: Please see below. 1. Flu A 2. Right lower lobe pneumonia 3. GI bleed, resolved 4. COPD PLAN: 1. Discontinue Flagyl 2. Discontinue Solu-Medrol 3. Prednisone 10mg twice a day 4. Repeat chest x-ray Plan and coordination of the patient's care discussed in the presence of Mat Making Machine Tender and nurse. SCRIBED BY: Angie RAMÍREZ scribed while in presence of service performed by Dr. Darnell/Arti Beck APRN on 09/13/18 ([id number])
--- NOTE | 2018-09-13 11:19 | DI ---
EXAM: Two views of the chest. History: Cough. Comparison: Chest radiograph 09/09/2018 Findings: Heart size is upper limits of normal. No focal consolidation. No appreciable pleural flu id and no pneumothorax. Atherosclerotic vascular calcifications. No acute osseous abnormalities. Impression: No acute cardiopulmonary process
[2018-09-13] MEDS: ARICEPT PO SCH (20:37)
[2018-09-13] MEDS: XALATAN OP SCH (20:47)
[2018-09-14] MEDS: DUONEB NEB SCH ×4 (05:40→20:00)
[2018-09-14] MEDS: CARAFATE PO SCH ×4 (06:02→20:39)
[2018-09-14] MEDS ORDERED: K-DUR PO STA (08:20)
[2018-09-14] MEDS: NICODERM 21 MG TD SCH (08:31)
[2018-09-14] MEDS: CELEXA PO SCH (08:34)
[2018-09-14] MEDS: PREDNISONE PO SCH ×2 (08:34→16:29)
[2018-09-14] MEDS: CYMBALTA PO SCH (08:34)
[2018-09-14] MEDS: K-DUR PO SCH (08:36)
[2018-09-14] MEDS: PROTONIX PO SCH (08:38)
[2018-09-14] MEDS: ROCEPHIN 1 GM in SODIUM CHLORIDE 50 ML IV SCH (08:38)
--- NOTE | 2018-09-14 08:48 | PCM.PROG ---
Attending Provider: ATTENDING PROVIDER: Dr. GEORGI DARNELL DATE OF SERVICE: 09/14/18 SUBJECTIVE: This 88 year old WHITE/ F was hospitalized 09/09/18 with pneumonia. The patient is a lot better with no coughing at all. REVIEW OF SYSTEMS: CONSTITUTIONAL: No night sweats. No fatigue, malaise, lethargy. No fever or chills. HEENT: Eyes: No visual changes. No eye pain. No eye discharge. ENT: No runny nose. No epistaxis. No sinus pain. No odynophagia. No congestion. RESPIRATORY: No cough, no congestion. No hemoptysis. No shortness of breath. CARDIOVASCULAR: No angina symptoms. No CHF symptoms. No atypical chest pain for CAD. No palpitations. No orthopnea.. GASTROINTESTINAL: No abdominal pain. No nausea or vomiting. No diarrhea or constipation. No hematemesis. No hematochezia. Appetite is improving but still not up to par. GENITOURINARY: No urgency. No frequency. No dysuria. No hematuria. No obstructive symptoms. No discharge. No pain. No significant abnormal bleeding. MUSCULOSKELETAL: No musculoskeletal pain; no joint swelling. NEUROLOGICAL: Awake, alert, oriented to time, place and person. No headache. No neck pain. No syncope. No seizures. No dizziness. PSYCHIATRIC: Not anxious. No depression. No suicidal thoughts. No homicidal thoughts. SKIN: No rash. No lesions. No wounds. ENDOCRINE: No unexplained weight loss. No weight gain. HEMATOLOGIC/LYMPHATIC: No anemia. No purpura. No petechiae. No prolonged or excessive bleeding. No palpable lymph nodes. PHYSICAL EXAMINATION: GENERAL: The patient is awake, confused but alert, lying in bed in no distress. VITAL SIGNS: Temperature 98.0 F, Pulse 72, Respiratory Rate 18, BP 168/81, Pulse Ox 95% HEENT: Head normocephalic, atraumatic. Eyes: Extraocular muscles are intact. Pupils are equal, round and reactive to light and accommodation. Ears: No lesions. Nose appeared normal. Throat: No exudate or erythema. NECK: Supple. No JVD, no carotid bruit. No lymphadenopathy or thyromegaly. LUNGS: Mild wheezing expiratory. Clear to auscultation. Percussion note normal. Chest symmetrical. HEART: S1, S2, no S3. No murmurs. No cyanosis or clubbing. No ascites. Pulses: Dorsalis pedis and posterior tibial pulses +1 to +2 both sides. ABDOMEN: Soft. Non-tender. Bowel sounds active. No CVA tenderness. No mass felt. EXTREMITIES: No edema. Full range of motion of all extremities, equal. NEUROLOGIC: No focal deficit. Cranial nerves II through XII are grossly intact. No headache, no double vision or headache. SKIN: Warm and dry. Intact. Turgor-normal. LYMPHATIC: No palpable lymph nodes/no lymphedema. MUSCULOSKELETAL: Normal joints with no swelling. Muscle tone is normal. LAB REVIEW: 09/14/18 04:05 09/14/18 04:05 09/14/18 04:05: Sodium 129.9 L, Potassium 4.63, Chloride 95.8 L, Carbon Dioxide 33.4 H, Anion Gap 5.33, BUN 10.7, Creatinine 0.49 L, Estimated GFR (MDRD) 119.00 , BUN/Creatinine Ratio 21.83, Glucose 92.1, Calcium 8.96, Total Bilirubin 1.36 H , AST 40.9 H, ALT 41.7 H, Alkaline Phosphatase 50.1 L, Total Protein 5.49 L, Albumin 3.21 L, Globulin 2.28, Albumin/Globulin Ratio 1.40 09/14/18 04:05: WBC 4.55 L, RBC 2.47 L, Hgb 9.7 L, Hct 27.7 L, MCV 112.1 H, MCH 39.3 H, MCHC 35.0, RDW Coeff of Alonso 14.3, Plt Count 80 L, Neutrophils % (Manual ) 54.0, Lymphocytes % (Manual) 17.0, Monocytes % (Manual) 16.0 H, Basophils % ( Manual) 2.0 H, Metamyelocytes % 3.0 H, Myelocytes % 3.0 H, Reactive Lymphocytes 5.0, Plt Morphology Comment , Anisocytosis Not present, Macrocytosis 1+, Spherocytes 1+ ASSESSMENT: Please see below. 1. Pneumonia, resolving by chest x-ray PLAN: 1. Continue antibiotics, steroids and NEBS 2. Likely discharge tomorrow. 3. Change Protonix to oral 40mg daily Plan and coordination of the patient's care discussed in the presence of Agriculture Manager and nurse. SCRIBED BY: MANJINDER DOWNEY Gas Operator scribed while in presence of service performed by Dr. GEORGI DARNELL on 09/14/18 ([id number])
[2018-09-14] MEDS: ARICEPT PO SCH (20:39)
[2018-09-14] MEDS: XALATAN OP SCH (20:40)
[2018-09-15] MEDS: DUONEB NEB SCH ×2 (04:30→10:10)
[2018-09-15] MEDS: PROTONIX PO SCH (05:41)
[2018-09-15] MEDS: CARAFATE PO SCH ×2 (05:42→12:08)
[2018-09-15 06:05] VITALS: BP 147/69; TEMP 98.4
[2018-09-15] MEDS ORDERED: K-DUR PO SCH (08:00)
[2018-09-15] MEDS: CYMBALTA PO SCH (09:01)
[2018-09-15] MEDS: NICODERM 21 MG TD SCH (09:01)
[2018-09-15] MEDS: PREDNISONE PO SCH (09:02)
[2018-09-15] MEDS: CELEXA PO SCH (09:02)
--- NOTE | 2018-09-15 09:16 | PN ---
DATE OF SERVICE: 09/11/18 SUBJECTIVE: 88-year-old white female hospitalized with acute pneumonitis/bronchitis. The patient also had some blood in the colostomy bag which was more or less coming from stoma. The patient had worsening of dementia. This morning she recognized me. She is oriented to person. She is not coughing. In fact, she did when she came into the hospital. REVIEW OF SYSTEMS: CONSTITUTIONAL: No night sweats. No fatigue, malaise, lethargy. No fever or chills. HEENT: Eyes: No visual changes. No eye pain. No eye discharge. ENT: No runny nose. No epistaxis. No sinus pain. No sore throat. No odynophagia. No congestion. RESPIRATORY: No cough, no congestion. No hemoptysis. No shortness of breath. CARDIOVASCULAR: No angina symptoms. No CHF symptoms. No atypical chest pain for CAD. No palpitations. No PND, no orthopnea. GASTROINTESTINAL: Appetite is improving. No abdominal pain. No nausea or vomiting. No diarrhea or constipation. No hematemesis. No hematochezia. GENITOURINARY: No urgency. No frequency. No dysuria. No hematuria. No obstructive symptoms. No discharge. No pain. No significant abnormal bleeding. MUSCULOSKELETAL: No musculoskeletal pain; no joint swelling. NEUROLOGICAL: No headache. No neck pain. No syncope. No seizures. No dizziness. PSYCHIATRIC: Not anxious. No depression. No suicidal thoughts. No homicidal thoughts. SKIN: No rash. No lesions. No wounds. ENDOCRINE: No unexplained weight loss. No weight gain. HEMATOLOGIC/LYMPHATIC: No anemia. No purpura. No petechiae. No prolonged or excessive bleeding. No palpable lymph nodes. PHYSICAL EXAMINATION: VITAL SIGNS: Temperature 98.5, pulse 83, respiratory rate 15, BP 160/80, pulse ox 91%. HEENT: Head normocephalic, atraumatic. Eyes: Extraocular muscles are intact. Pupils are equal, round and reactive to light and accommodation. Ears: No lesions. Nose appeared normal. Throat: No exudate or erythema. NECK: Supple. No JVD, no carotid bruit. No lymphadenopathy or thyromegaly. LUNGS: Decreased breath sounds but clear to auscultation. Percussion note normal. Chest symmetrical. HEART: S1, S2, no S3. No murmurs. No cyanosis or clubbing. No ascites. Pulses: Dorsalis pedis and posterior tibial pulses +1 to +2 bilaterally. ABDOMEN: Soft. Nontender. Bowel sounds active. No CVA tenderness. No mass felt. EXTREMITIES: No edema. Full range of motion of all extremities, equal. NEUROLOGIC: No focal deficit. Cranial nerves II through XII are grossly intact. No headache, no double vision or headache. SKIN: Not dry. Intact. Turgor - normal. LYMPHATIC: No palpable lymph nodes/no lymphedema. MUSCULOSKELETAL: Normal joints with no swelling. Muscle tone is normal. LABS: Hemoglobin 9.6, hematocrit 28, WBC 4,000, normal differential. Creatinine 0.4, BUN 12, potassium 4.7. ASSESSMENT: 1. ACUTE PNEUMONITIS/PNEUMONIA SEEMS TO BE RESOLVING 2. DEMENTIA HAS IMPROVED 3. HYDRATION STATUS HAS IMPROVED PLAN: 1. Continue IV antibiotics, steroids, nebs. CONDITION: Improving. TIME SPENT: More than 30 minutes. Plan and coordination of the patient's care discussed in the presence of nurse. PETE
--- NOTE | 2018-09-15 09:21 | PN ---
DATE OF SERVICE: 09/12/18 SUBJECTIVE: 88-year-old white female hospitalized with pneumonia. The patient's condition has improved remarkably. She does not have any GI bleed anymore. No colostomy bleeding noted. Hemoglobin is 10.4, hematocrit 30, WBC 3,800, normal differential. Creatinine 0.3, BUN 10, potassium 3.6. REVIEW OF SYSTEMS: CONSTITUTIONAL: No night sweats. No fatigue, malaise, lethargy. No fever or chills. HEENT: Eyes: No visual changes. No eye pain. No eye discharge. ENT: No runny nose. No epistaxis. No sinus pain. No sore throat. No odynophagia. No congestion. RESPIRATORY: No cough, no congestion. No hemoptysis. No shortness of breath. CARDIOVASCULAR: No angina symptoms. No CHF symptoms. No atypical chest pain for CAD. No palpitations. No PND. No orthopnea. GASTROINTESTINAL: Appetite has improved. She is eating a lot better. No abdominal pain. No nausea or vomiting. No diarrhea or constipation. No hematemesis. No hematochezia. GENITOURINARY: No urgency. No frequency. No dysuria. No hematuria. No obstructive symptoms. No discharge. No pain. No significant abnormal bleeding. MUSCULOSKELETAL: No musculoskeletal pain; no joint swelling. NEUROLOGICAL: No headache. No neck pain. No syncope. No seizures. No dizziness. PSYCHIATRIC: Not anxious. No depression. No suicidal thoughts. No homicidal thoughts. SKIN: No rash. No lesions. No wounds. ENDOCRINE: No unexplained weight loss. No weight gain. HEMATOLOGIC/LYMPHATIC: No anemia. No purpura. No petechiae. No prolonged or excessive bleeding. No palpable lymph nodes. PHYSICAL EXAMINATION: VITAL SIGNS: Temperature 98.1, pulse 80, respiratory rate 20, BP 157/73. Pulse ox 91%. HEENT: Head normocephalic, atraumatic. Eyes: Extraocular muscles are intact. Pupils are equal, round and reactive to light and accommodation. Ears: No lesions. Nose appeared normal. Throat: No exudate or erythema. NECK: Supple. No JVD, no carotid bruit. No lymphadenopathy or thyromegaly. LUNGS: Decreased breath sounds but clear to auscultation. Percussion note normal. Chest symmetrical. HEART: S1, S2, no S3. No murmurs. No cyanosis or clubbing. No ascites. Pulses: Dorsalis pedis and posterior tibial pulses +1 to +2 bilaterally. ABDOMEN: Soft. Nontender. Bowel sounds active. No CVA tenderness. No mass felt. EXTREMITIES: No edema. Full range of motion of all extremities, equal. NEUROLOGIC: No focal deficit. Cranial nerves II through XII are grossly intact. No headache, no double vision or headache. SKIN: Not dry. Intact. Turgor - normal. LYMPHATIC: No palpable lymph nodes/no lymphedema. MUSCULOSKELETAL: Normal joints with no swelling. Muscle tone is normal. ASSESSMENT: 1. PNEUMONIA SEEMS TO BE RESOLVING. 2. BRONCHITIS SEEMS TO BE RESOLVING. 3. GI BLEED/COLOSTOMY BLEED SEEMS TO BE SUBSIDING. 4. DEMENTIA, STABLE BUT HER MENTAL STATUS HAS IMPROVED TO SOME EXTENT. PLAN: 1. Continue antibiotics, steroids, nebs. CONDITION: Stable. TIME SPENT: More than 30 minutes. Plan and coordination of the patient's care discussed in the presence of nurse. PETE
[2018-09-15] MEDS: ROCEPHIN 1 GM in SODIUM CHLORIDE 50 ML IV SCH (09:31)
--- NOTE | 2018-09-15 11:49 | CM.DICTOOL ---
ADMISSION: 09/09/18 07:06 DISCHARGE: SEPTEMBER 15, 2018 DATE OF SERVICE: 09/15/18 FINAL DIAGNOSIS PNEUMONIA, RLL PER CT FLU A, TAMIFLU COMPLETED GI BLEED COPD ANEMIA HYPONATREMIA HISTORY OF: S/P BILATERAL CATARACT SURGERY - DATE UNKNOWN DEMENTIA S/P COLOSTOMY - DATE UNKNOWN S/P HYSTERECTOMY - DATE UNKNOWN HYPOTHYROIDISM DEPRESSION LAST VITALS Temp Pulse Resp BP Pulse Ox 98.4 F 75 20 147/69 H 96 09/15/18 06:00 09/15/18 06:00 09/15/18 06:00 09/15/18 06:00 09/15/18 10:00 TAKE THESE MEDICATIONS AT HOME Citalopram Hydrobromide (Celexa) 20 mg PO DAILY [facility] Last Admin: 09/15/18 09:02 Dose: 20 mg Donepezil HCl (Aricept) 5 mg PO BEDTIME [facility] Last Admin: 09/14/18 20:39 Dose: 5 mg Duloxetine HCl (Cymbalta) 60 mg PO DAILY [facility] Last Admin: 09/15/18 09:01 Dose: 60 mg Latanoprost (Xalatan) 1 drop OP BEDTIME [facility] Last Admin: 09/14/18 20:40 Dose: 1 drop Pantoprazole Sodium (Protonix) 40 mg PO QDAC [facility] Last Admin: 09/15/18 05:41 Dose: 40 mg Potassium Chloride (K-Dur) 10 meq PO DAILYWM [facility] FOR 7 DAYS Last Admin: 09/15/18 09:02 Dose: 40 meq Prednisone (Prednisone) 10 mg PO DAILYWM [facility] Last Admin: 09/15/18 09:02 Dose: 10 mg FOR 5 DAYS OMNICEF 300 MG BID FOR 5 DAYS ALLERGIES No Known Allergies Allergy (Verified 09/09/18 04:04) DISCONTINUED MEDICATIONS None NEW PRESCRIPTIONS: OMNICEF 300 MG BID FOR 5 DAYS PREDNISONE 10 MG DAILY WITH MEALS FOR 5 DAYS K-TAB 10 MEQ DAILY FOR 7 DAYS SMOKING: PATIENT IS A SMOKER, BUT HAS NOT SMOKED WHILE HERE DISEASE SPECIFIC EDUCATION: NOT APPLICABLE, PATIENT IS DISORIENTED LAB REVIEW: 09/15/18 04:15 09/15/18 04:15 09/15/18 04:15: WBC 4.63, RBC 2.60 L, Hgb 9.8 L, Hct 29.0 L, MCV 111.5 H, MCH 37.7 H, MCHC 33.8, RDW Coeff of Alonso 14.1, Plt Count 98 L, Immature Gran % (Auto ) 3.0, Neut % (Auto) 61.8, Lymph % (Auto) 15.1, Glasscock % (Auto) 19.0 H, Eos % ( Auto) 0.9, Baso % (Auto) 0.2, Immature Gran # (Auto) 0.1, Neut # (Auto) 2.9, Lymph # (Auto) 0.7, [place]cock # (Auto) 0.9, Eos # (Auto) 0.0, Baso # (Auto) 0.0, Plt Morphology Comment , Anisocytosis Not present, Macrocytosis 1+ 09/15/18 04:15: Sodium 128.8 L, Potassium 3.79, Chloride 92.8 L, Carbon Dioxide 35.8 H, Anion Gap 3.99, BUN 10.8, Creatinine 0.48 L, Estimated GFR (MDRD) 122.00 , BUN/Creatinine Ratio 22.50, Glucose 91.6, Calcium 8.91, Total Bilirubin 1.84 H , AST 46.8 H, ALT 49.1 H, Alkaline Phosphatase 58.3, Total Protein 5.78 L, Albumin 3.41 L, Globulin 2.37, Albumin/Globulin Ratio 1.43 PLAN: DISCHARGE HOME WITH SON, CANDI DIET: RESUME TOLERATED ACTIVITY: RESUME TOLERATED. CONTINUE MEDICATION LISTED ON NURSING DISCHARGE INFORMATION AN APPOINTMENT IS SCHEDULED WITH DR. DARNELL/YENNY LAM APRN ON AT 10:45 AM CODE STATUS: FULL CODE MRS. SMITH IS ALERT TO PERSON ONLY. SHE IS HARD OF HEARING, BUT WEARS HEARING AIDE. SHE IS INDEPENDENT WITH FEEDING. HER APPETITE IS FAIR AT 15-75%. SHE IS INDEPENDENT WITH BED MOBILITY AND WITH AMBULATION. SHE DOES NOT FOLLOW INSTRUCTIONS TO ASK FOR ASSISTANCE DUE TO DECREASED COGNITION. BOWEL ELIMINATION IS VIA A COLOSTOMY LOCATED TO THE LEFT UPPER QUADRANT. THE STOOL IS BROWN, SOFT AND LIQUID. SHE IS CONTINENT OF URINE. SKIN TURGOR IS GOOD. NO DECUBITUS ULCERS, RASHES OR IRRITATION NOTED. MRS. SMITH LIVES IN HER HOME WITH HER SON, CANDI. THE SON AND THE DAUGHTER ARE AWARE OF DISCHARGE PLANS FOR TODAY AND ARE AGREEABLE. GEORGI DARNELL MD YENNY LAM APRN
--- NOTE | 2018-09-15 12:57 | PCM.PROG ---
Attending Provider: ATTENDING PROVIDER: Dr. GEORGI DARNELL This patient is seen with Arti Beck, Nurse Practitioner. DATE OF SERVICE: 09/15/18 SUBJECTIVE: This 88 year old WHITE/ F was hospitalized 09/09/18. The patient is resting comfortably. Her cough has improved. She has been eating well and up and about on her own. HGB is stable. REVIEW OF SYSTEMS: CONSTITUTIONAL: No night sweats. No fatigue, malaise, lethargy. No fever or chills. HEENT: Eyes: No visual changes. No eye pain. No eye discharge. ENT: No runny nose. No epistaxis. No sinus pain. No odynophagia. No congestion. RESPIRATORY: Cough, no congestion. No hemoptysis. No shortness of breath. CARDIOVASCULAR: No angina symptoms. No CHF symptoms. No atypical chest pain for CAD. No palpitations. No orthopnea.. GASTROINTESTINAL: No abdominal pain. No nausea or vomiting. No diarrhea or constipation. No hematemesis. No hematochezia. GENITOURINARY: No urgency. No frequency. No dysuria. No hematuria. No obstructive symptoms. No discharge. No pain. No significant abnormal bleeding. MUSCULOSKELETAL: No musculoskeletal pain; no joint swelling. NEUROLOGICAL: Awake, alert, oriented to time, place and person. No headache. No neck pain. No syncope. No seizures. No dizziness. PSYCHIATRIC: Not anxious. No depression. No suicidal thoughts. No homicidal thoughts. SKIN: No rash. No lesions. No wounds. ENDOCRINE: No unexplained weight loss. No weight gain. HEMATOLOGIC/LYMPHATIC: No anemia. No purpura. No petechiae. No prolonged or excessive bleeding. No palpable lymph nodes. PHYSICAL EXAMINATION: GENERAL: The patient is awake, alert and oriented, lying/sitting in bed in no distress. VITAL SIGNS: Temperature 98.4 F, Pulse 75, Respiratory Rate 20, BP 147/69, Pulse Ox 97% HEENT: Head normocephalic, atraumatic. Eyes: Extraocular muscles are intact. Pupils are equal, round and reactive to light and accommodation. Ears: No lesions. Nose appeared normal. Throat: No exudate or erythema. NECK: Supple. No JVD, no carotid bruit. No lymphadenopathy or thyromegaly. LUNGS: Diminished breath sounds. Clear to auscultation. Percussion note normal. Chest symmetrical. HEART: S1, S2, no S3. No murmurs. No cyanosis or clubbing. No ascites. Pulses: Dorsalis pedis and posterior tibial pulses +1 to +2 both sides. ABDOMEN: Soft. Non-tender. Bowel sounds active. No CVA tenderness. No mass felt. EXTREMITIES: No edema. Full range of motion of all extremities, equal. NEUROLOGIC: No focal deficit. Cranial nerves II through XII are grossly intact. No headache, no double vision or headache. SKIN: Not dry. Intact. Turgor-normal. LYMPHATIC: No palpable lymph nodes/no lymphedema. MUSCULOSKELETAL: Normal joints with no swelling. Muscle tone is normal. LAB REVIEW: 09/15/18 04:15 09/15/18 04:15 09/15/18 04:15: WBC 4.63, RBC 2.60 L, Hgb 9.8 L, Hct 29.0 L, MCV 111.5 H, MCH 37.7 H, MCHC 33.8, RDW Coeff of Alonso 14.1, Plt Count 98 L, Immature Gran % (Auto ) 3.0, Neut % (Auto) 61.8, Lymph % (Auto) 15.1, [place] % (Auto) 19.0 H, Eos % ( Auto) 0.9, Baso % (Auto) 0.2, Immature Gran # (Auto) 0.1, Neut # (Auto) 2.9, Lymph # (Auto) 0.7, [place] # (Auto) 0.9, Eos # (Auto) 0.0, Baso # (Auto) 0.0, Plt Morphology Comment , Anisocytosis Not present, Macrocytosis 1+ 09/15/18 04:15: Sodium 128.8 L, Potassium 3.79, Chloride 92.8 L, Carbon Dioxide 35.8 H, Anion Gap 3.99, BUN 10.8, Creatinine 0.48 L, Estimated GFR (MDRD) 122.00 , BUN/Creatinine Ratio 22.50, Glucose 91.6, Calcium 8.91, Total Bilirubin 1.84 H , AST 46.8 H, ALT 49.1 H, Alkaline Phosphatase 58.3, Total Protein 5.78 L, Albumin 3.41 L, Globulin 2.37, Albumin/Globulin Ratio 1.43 ASSESSMENT: Please see below. 1. Influenza A 2. Right lower lobe pneumonia- improved per CT 3. COPD 4. Anemia -chronic PLAN: 1. Omnicef 300mg PO Q 12 hours. 2. Prednisone 10mg PO daily for 5 days 3. K-Dur 10meq for one week 4. Followup with us next week. Plan and coordination of the patient's care discussed in the presence of Band Cutter and nurse. SCRIBED BY: MANJINDER DOWNEY Sugarcane Planter scribed while in presence of service performed by Dr. Darnell/Arti Beck APRN on 09/15/18 ([id number])
--- NOTE | 2018-09-16 12:23 | DS ---
DATE OF SERVICE: 09/15/18 FINAL DIAGNOSIS: 1. PNEUMONIA, RLL PER CT 2. FLU A, TAMIFLU COMPLETED 3. GI BLEED 4. COPD 5. ANEMIA 6. HYPONATREMIA 7. HISTORY OF S/P BILATERAL CATARACT SURGERY, DATE UNKNOWN 8. DEMENTIA 9. S/P COLOSTOMY - DATE UNKNOWN 10. S/P HYSTERECTOMY - DATE UNKNOWN 11. HYPOTHYROIDISM 12. DEPRESSION LAST V/S: Temperature 98.4, pulse 75, respiratory rate 20, BP 147/69, pulse ox 96. DISCHARGE INSTRUCTIONS: 1. Discharge with sonKhurram. 2. Followup appointment is scheduled with Dr. Holland/Arti Beck, REMOTE SENSING ENGINEER, September 22 at 10:45 a.m. MEDICATIONS AT DISCHARGE: Celexa 20 mg p.o. daily VELIA Aricept 5 mg p.o. bedtime VELIA Cymbalta 60 mg p.o. daily VELIA Xalatan one drop OP bedtime VELIA Protonix 40 mg p.o. q.d a.c. VELIA K-Dur 10 mEq p.o. daily with meal VELIA for 7 days Prednisone 10 mg p.o. daily with meal VELIA Omnicef 300 mg b.i.d. for 5 days NEW PRESCRIPTIONS: Omnicef 300 mg b.i.d. for 5 days Prednisone 10 mg daily with meals for 5 days K-Tab 10 mEq daily for 7 days DIET INSTRUCTIONS: Resume as tolerated. ACTIVITY: Resume as tolerated. SMOKING: The patient is a smoker, but has not smoked while here. DISEASE SPECIFIC EDUCATION: Not applicable, patient is disoriented. HOSPITAL COURSE: This is a 88-year-old white female who presented to the emergency room with fever and coughing. She was positive for influenza A. Chest CT revealed right lower lobe pneumonia. She was admitted to the Special Care Unit and ABGs were abnormal. Kidney function was abnormal showing dehydration, placed on Rocephin 1 gm IV daily along with Tamiflu 75 mg p.o. b.i.d. along with NS IV at 75 cc/ hr. Her sodium was depleted on admission, has remained about the same as is normal for her. She was somewhat anemic, which has been stable around 9.5 to 9.9 ; this again is her normal. She does have a colostomy from having a colectomy years ago. Initially there was some bleeding in her colostomy bag. CT of the abdomen showed that there was possible colitis. She was initially started on Flagyl 500 mg p.o. t.i.d. She was on that for approximately four days. The bleeding resolved. She has been eating well for the past 48 hours, has been afebrile for the past three days. Repeat chest x-ray on Thursday showed no pneumonia in the right lobe. She has been up and about on her own. She will be discharged home today in stable condition with Omnicef 300 mg b.i.d. for 5 days along with Prednisone 10 mg daily for 5 days. She completed her five day course of Tamiflu. Again, she has been up and about. She wishes to go home. She will be discharged in stable condition. TIME SPENT: More than 60 minutes. PETE
--- NOTE | 2018-09-23 10:53 | PN ---
DATE OF SERVICE: 09/13/18 SUBJECTIVE: The patient was seen and examined with the Nurse Practitioner. The patient's condition has continued to improve. Chest x-ray showed improving. Continue antibiotics, steroids and NEBS. The patient maybe discharged tomorrow. TIME SPENT: More than 30 minutes. Plan and coordination of the patient's care discussed in the presence of nurse. PETE
--- NOTE | 2018-09-23 10:58 | PN ---
DATE OF SERVICE: 09/15/18 SUBJECTIVE: The patient was seen and examined with Nurse Practitioner. The patient's condition has improved and pneumonia has improved by radiographic findings and clinically she is looking better. Appetite has improved. Still confused but alert and answering questions. The patient is going to discharged home with antibiotics. TIME SPENT: More than 30 minutes. Plan and coordination of the patient's care discussed in the presence of nurse. PETE
--- NOTE | 2018-09-23 11:00 | PN ---
09/09/18: Level 5 09/10/18: Intermediate 09/11/18: Intermediate 09/12/18: Intermediate 09/13/18: Intermediate 09/14/18: Intermediate 09/15/18: D as in discharge MTDD
== END 2018-09-15 12:55 | disposition home or self-care (01) ==
LOC: ED 03:45 → SCU 07:06 → MEDSURG A 09-13 15:22
PROVIDERS: ADMIT Internal Medicine; ATTEND Internal Medicine
DX: R05 Cough (principal); J18.1 Lobar pneumonia, unspecified organism; J44.1 Chronic obstructive pulmonary disease with (acute) exacerbation; K92.1 Melena; K92.2 Gastrointestinal hemorrhage, unspecified; E87.1 Hypo-osmolality and hyponatremia; E03.9 Hypothyroidism, unspecified; E86.0 Dehydration; R09.89 Other specified symptoms and signs involving the circulatory and respiratory systems; R06.02 Shortness of breath; R00.0 Tachycardia, unspecified; R53.1 Weakness; F41.9 Anxiety disorder, unspecified; F32.9 Major depressive disorder, single episode, unspecified; F03.90 Unspecified dementia, unspecified severity, without behavioral disturbance, psychotic disturbance, mood disturbance, and anxiety; J11.1 Influenza due to unidentified influenza virus with other respiratory manifestations; D64.9 Anemia, unspecified
CPT/HCPCS: 36415; 80053; 82803; 83605; 84145; 85007; 85008; 85025; 87040; 87081; 87502; 94640; 96361; 96365; 96375; 99223; 99232; 99239; 99284

== ENCOUNTER 2018-12-06 08:42 | Outpatient (CLI) ==
[2018-12-06 09:08] VITALS: BMI 21.7
== END 2018-12-06 08:59 | disposition critical access hospital (66) ==
LOC: AMBL 08:42
PROVIDERS: ATTEND Internal Medicine
DX: M25.562 Pain in left knee (principal); M25.462 Effusion, left knee; M25.552 Pain in left hip; W19.XXXA Unspecified fall, initial encounter

== ENCOUNTER 2018-12-06 09:01 | Emergency (ER) ==
[2018-12-06 09:08] VITALS: BP 141/76; BMI 21.7
--- NOTE | 2018-12-06 10:17 | CT ---
EXAM: CT of the head without contrast History: Head trauma. Comparison: Head CT 62,018 Technique: Multiplanar CT images through the head were obtained without the administration of IV con trast Findings: The visualized paranasal sinuses were clear in general. Small left mastoid effusion. No a cute calvarial abnormalities. Intracranially there is stable mild atrophy. No midline shift and no hydrocephalus. No acute intrac ranial hemorrhage or abnormal extraaxial fluid collections. No change in the periventricular and sub cortical white matter hypodensities. Impression: No acute intracranial process. Stable chronic age-related changes
--- NOTE | 2018-12-06 10:20 | CT ---
EXAM: CT of the cervical spine without contrast History: Head and neck trauma. Comparison: CT cervical spine 01/30/2018 Technique: Multiplanar CT images through the cervical spine were obtained without the administration of IV contrast Findings: The visualized airway remains patent. No acute fracture or subluxation of the cervical sp ine. Osteopenia. No prevertebral soft tissue swelling. Predental space is not widened. Moderate t o severe disc space narrowing at C5-6. Mild to moderate disc space narrowing seen elsewhere. There is endplate sclerosis and osteophyte formation. Bony spinal canal is not significantly compromised. No change in the multilevel bilateral bony neural foraminal narrowing secondary to uncovertebral and facet hypertrophy which is severe on the left at C3-4, C4-5 and C5-6. Impression: No acute osseous abnormality of the cervical spine
--- NOTE | 2018-12-06 10:24 | CT ---
EXAM: CT pelvis HISTORY: Fall, pain left hip. TECHNIQUE: CT pelvis without contrast. Multiplanar images were provided. FINDINGS: Bones appear demineralized. No displaced fracture is seen. Joints are intact. 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 Sacroiliac joints are intact. There are severe degenerative changes of the lower spine. Peripheral soft tissues reveal n o hematoma. Visualized bowel has nonobstructive gas pattern. Severe atherosclerotic disease. Urina ry bladder is intact. No ascites. IMPRESSION: 1. No fracture or dislocation.
--- NOTE | 2018-12-06 10:24 | CT ---
EXAM: CT of the left knee without contrast History: Left knee pain and trauma. Comparison: Pelvic CT 12/06/2018 Technique: Multiplanar CT images through the left knee were obtained without the administration of I V contrast Findings: Osteopenia. No displaced fractures are identified. No dislocation. 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 Chondrocalcinosis seen. Large joint effusion. Mild to mode rate tricompartmental joint space narrowing with marginal sclerosis and osteophyte formation. Impression: 1. No acute displaced fractures identified. No dislocation. 2. Large joint effusion. 3. 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 4. Osteopenia. 5. Chondrocalcinosis. 6. Mild to moderate arthritis
--- NOTE | 2018-12-06 10:47 | ED.PDOC ---
General ED Provider: Dr. MELA TATE Chief Complaint: Fall Stated Complaint: fall, c/o left knee pain and pelvis pain . the fall had occured about 5 days ago Time Seen by Physician: 09:00 Mode of Arrival: Ambulance Information Source: Patient, EMT Exam Limitations: No limitations Primary Care Provider: GEORGI DARNELL Nursing and Triage Documentation Reviewed and Agree: Yes Does patient meet sepsis criteria?: No If yes, has appropriate treatment been initiated?: No System Inflammatory Response Syndrome: Not Applicable (seen with nursing consultant , pt's nurse at all times ) Sepsis Protocol: For patient's 13 years and over: Temp is 96.8 and below OR 101 and greater Pulse >90 BPM Resp >20/minute Acutely Altered Mental Status Are patient's symptoms suggestive of a new infection, such as: -Pneumonia -Skin, Soft Tissue -Endocarditis -UTI -Bone, Joint Infection -Implantable Device -Acute Abdominal Infection -Wound Infection -Meningitis -Blood Stream Catheter Infection -Unknown Trauma/Injury Complaint Exam - Trauma Complaint/Exam Location of Pain or Injury: Reports: LLE (knee ), Other (pelvis) Mechanism of Injury: Reports: Fall Symptoms Are: Still present Initial Severity: Mild Current Severity: Mild Aggravating: Reports: None Alleviating: Reports: None Associated Signs and Symptoms: Denies: LOC, Confusion, Memory loss, Lethargy, Vomiting, Bleeding, Bruising, Swelling, Extremity disuse, Painful respiration, Hoarseness, Dysphagia, Hemoptysis, Significant blood loss : No Penetrating Injury Risk Factors: Reports: None Nexus Low Risk Criteria: No post-midline CS tender, No evidence of intoxicat., No Altered LOC (but has dementia ), No focal neuro deficit, No distracting injuries Glascow Coma Scale (see protocol): 15 Trauma Findings: Absent: [place] eyes, Hemotympanum, Nasal deformity, Dental tenderness, Dental injury, Dental malocclusion, Neck tenderness, SubQ Air, Trachea displaced, Labored respirations, Decreased breath sounds, Muffled heart sounds, Weak pulses, Absent pulses, Abdominal distention Review of Systems - Review Of Systems Constitutional: Reports: No symptoms Eyes: Reports: No symptoms Ears, Nose, Mouth, Throat: Reports: No symptoms Respiratory: Reports: No symptoms Cardiac: Reports: No symptoms GI: Reports: No symptoms : Reports: No symptoms Musculoskeletal: Reports: Joint pain (left hip and knee ) Skin: Reports: No symptoms Neurological: Reports: No symptoms Endocrine: Reports: No symptoms Hematologic/Lymphatic: Reports: No symptoms All Other Systems: Reviewed and Negative Past Medical History - Past Medical History Previously Healthy: Yes Endocrine: Reports: None Cardiovascular: Reports: None Respiratory: Reports: None 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 ) Gastrointestinal: Reports: GERD Genitourinary: Reports: None Neuro/Psych: Reports: Anxiety, Depression, Dementia Musculoskeletal: Reports: None Cancer: Reports: None Last Menstrual Period: none - Surgical History General Surgical History: Reports: Other (Colostomy due to tear of abdomen ) - Family History Family History: Reports: Unknown - Social History Smoking Status: Current every day smoker, Light tobacco smoker Hx Substance Use: No Alcohol Screening: None Physical Exam - Physical Exam Appearance: Well-appearing, No pain distress, Well-nourished Eyes: JOSEY, EOMI, Conjunctiva clear ENT: Ears normal, Nose normal, Oropharynx normal Respiratory: Airway patent, Breath sounds clear, Breath sounds equal, Respirations nonlabored Cardiovascular: RRR, Pulses normal, No rub, No murmur GI/: Soft, Nontender, No masses, Bowel sounds normal, No Organomegaly Musculoskeletal: Limited ROM (left knee ) Skin: Warm, Dry, Normal color Neurological: Sensation intact, Motor intact, Reflexes intact, Cranial nerves intact, Alert, Oriented Psychiatric: Affect appropriate, Mood appropriate Interpretation - Radiology Interpretation Radiology Interpretation By: Radiologist Radiology Results: No acute changes Critical Care Note - Critical Care Note Total Time (mins): 0 Course - Course Orders, Labs, Meds: Orders Category Date Time Status CT CERVICAL SPINE W/O CONTRAST Stat RADS 12/06/18 09:[address] HEAD W/O CONTRAST Stat RADS 12/06/18 09:[address] KNEE LEFT WITHOUT CONTRAST Stat RADS 12/06/18 09:[address] PELVIS W/O CONTRAST Stat RADS 12/06/18 09:25 Completed Vital Signs: Temp Pulse Resp BP Pulse Ox 12/06/18 09:02 99.8 F H 75 20 141/76 H 98 Departure - Departure Time of Disposition: 11:00 Disposition: HOME SELF-CARE Discharge Problem: Acute knee pain Qualifiers: Laterality: left Qualified Code(s): M25.562 - Pain in left knee Instructions: Knee Pain (ED) Condition: Good Pt referred to PMD for follow-up: Yes IPMP verified?: No Additional Instructions: Please call your Family Physician as soon as possible to schedule a follow-up appointment. Allergies/Adverse Reactions: Allergies No Known Allergies Allergy (Verified 12/06/18 09:09) Home Medications: Ambulatory Orders Duloxetine HCl [Cymbalta] 60 mg PO D 04/12/14 Pantoprazole Sodium [Protonix] 40 mg PO DAILY 04/12/14 Donepezil HCl [Aricept] 5 mg PO DAILY 12/24/16 Citalopram Hydrobromide [Celexa] 20 mg PO DAILY 02/03/18 Latanoprost/Pf [Latanoprost 0.005% Eye Drop] 1 drop OP DAILY 09/09/18 Cefdinir [Omnicef] 300 mg PO Q12HR #10 capsule 09/15/18 Potassium Chloride [K-Tab ER] 10 meq PO DAILY #7 tablet.er 09/15/18 Prednisone 10 mg PO DAILYWM #5 tablet 09/15/18
[2018-12-06 12:27] VITALS: TEMP 101.5
== END 2018-12-06 15:19 | disposition short-term general hospital (02) ==
LOC: ED 09:01
DX: M25.562 Pain in left knee (principal); R10.2 Pelvic and perineal pain; M25.552 Pain in left hip; Z72.0 Tobacco use; R50.9 Fever, unspecified; W19.XXXA Unspecified fall, initial encounter
CPT/HCPCS: 36415; 80053; 85008; 85025; 85610; 85730; 93005; 93010; 99285

== ENCOUNTER 2018-12-06 15:14 | Outpatient (CLI) ==
[2018-12-06 09:08] VITALS: BMI 21.7
== END 2018-12-06 15:40 | disposition short-term general hospital (02) ==
LOC: AMBL 15:14
PROVIDERS: ATTEND Internal Medicine
DX: M25.562 Pain in left knee (principal); M25.552 Pain in left hip; M25.40 Effusion, unspecified joint; W19.XXXA Unspecified fall, initial encounter

== ENCOUNTER 2019-09-16 16:19 | Inpatient (IN) ==
[2019-09-16 16:25] VITALS: BMI 20.7
[2019-09-16 17:07] LABS: HEMATOCRIT 21.9 % (37.0-47.0)
--- NOTE | 2019-09-16 17:34 | CT ---
Exam: CT of the abdomen and pelvis without contrast History: Abdominal pain Technique: [address] of the abdomen and pelvis without intravascular contrast FINDINGS: The lung bases are clear. No significant liver abnormality. The adrenals, pancreas and s pleen are unremarkable. The stomach and hiatus are unremarkable.The gallbladder is not seen. Kidney s and proximal collecting system are unremarkable. Heavy atherosclerotic calcification of the aorta without aneurysm. The appendix is not seen. Bowel loops demonstrate normal caliber. No inflamatory change seen in the mesentery or retroperitoneum. Left lower quadrant ostomy site without complicati on. Prior hysterectomy. Normal urinary bladder. Colonic diverticulosis of the sigmoid. No pelvic fat i nflammation. Right hip transfemoral nail. No acute findings of the skeleton. Impression: 1. No inflammatory process, bowel or urinary obstruction. No acute findings of the abdomen or pelvi s.
--- NOTE | 2019-09-16 18:27 | ED.PDOC ---
General ED Provider: Dr. MELA TATE Chief Complaint: Abnormal Labs Stated Complaint: abnormal out pt labs , pt had a hip fracture on thursday on thursday she was transfused with 2 units of blood . she was d/c to long term from [facility] , at the long term she c/o weakness Time Seen by Physician: 16:22 Mode of Arrival: Stretcher Information Source: [facility] Exam Limitations: No limitations Primary Care Provider: GEORGI DARNELL Nursing and Triage Documentation Reviewed and Agree: Yes Does patient meet sepsis criteria?: No If yes, has appropriate treatment been initiated?: No System Inflammatory Response Syndrome: Not Applicable Sepsis Protocol: For patient's 13 years and over: Temp is 96.8 and below OR 101 and greater Pulse >90 BPM Resp >20/minute Acutely Altered Mental Status Are patient's symptoms suggestive of a new infection, such as: -Pneumonia -Skin, Soft Tissue -Endocarditis -UTI -Bone, Joint Infection -Implantable Device -Acute Abdominal Infection -Wound Infection -Meningitis -Blood Stream Catheter Infection -Unknown Miscellaneous Complaint Exam Complex/Multi-System Complaint/Exam Onset/Duration: weakness Symptoms Are: Still present Episodes Lasting: Days Initial Severity: Moderate Current Severity: Moderate Location of Pain: hip right side abdomen Pain Radiates to: none Character: dull Aggravating: movement Alleviating: rest Associated Signs and Symptoms: Reports Cough and Abdominal pain; Denies Decreased responsiveness, Confusion, Agitation, Dizziness, Weakness, Syncope, Headache, Short of air, Wheezing, Hemoptysis, Chest pain, Palpitations, Edema, Nausea, Vomiting, Diarrhea, Back pain, Dysuria, Hematemesis, Melena, Decreased oral intake, Fever, Diaphoresis, Immunocompromised, Anticoagulation Therapy, Recent medication changes, Indwelling clinical specialist medical device, Prior MRSA, Prior VRE, Recent trauma and Remote trauma Recent Echo/LV Function: No Respiratory Distress: None JVD Present: No Tachypnea Present: No Stridor Present: No Abdominal Findings: Present Normal findings Glascow Coma Scale (see protocol): 15 Meningeal Signs Positive: No Focal Weakness: Present None Focal Sensory Loss: Present None Gait: Normal Gag Reflex Present: Yes Babinski Sign: Negative Right and Negative Left Skin Findings: Present Normal findings Joint Swelling Present: No In-Dwelling Device Present: No Differential Diagnosis: Metabolic Abnormality and Other (anemia) Quality Indicators for Cardiac Chest Pain: EKG in 10min. Quality Indicators for AMI: EKG in 10min. Quality Indicators For Pneumonia/CAP: SpO2 assessed, Vital signs and Mental status assessed Quality Indicator For Non-Traumatic Chest Pain/Syncope: EKG Performed Review of Systems Review Of Systems Constitutional: Reports Malaise, Weakness and Loss of appetite Eyes: Reports No symptoms Ears, Nose, Mouth, Throat: Reports No symptoms Respiratory: Reports Cough Cardiac: Reports No symptoms GI: Reports Abdominal pain : Reports No symptoms Musculoskeletal: Reports Joint pain (right hip) Skin: Reports No symptoms Neurological: Reports No symptoms Endocrine: Reports No symptoms Hematologic/Lymphatic: Reports No symptoms All Other Systems: Reviewed and Negative [facility] Medical History (Updated 09/16/19 @ 18:27 by MELA TATE MD) Dementia Social History History of recent travel: No Physical Exam Physical Exam Appearance: Well-appearing, No pain distress and Well-nourished Ill-appearing: Mild Pain Distress: Mild Eyes: JOSEY, EOMI and Conjunctiva clear ENT: Ears normal, Nose normal and Oropharynx normal Neck: Supple Respiratory: Airway patent, Breath sounds clear, Breath sounds equal and Respirations nonlabored Cardiovascular: RRR, Pulses normal, No rub and No murmur GI/: Soft, Nontender, No masses, Bowel sounds normal and No Organomegaly (colostomh site in good shape ) Musculoskeletal: Normal strength, ROM intact, No edema and No calf tenderness Skin: Warm, Dry and Normal color Neurological: Sensation intact, Motor intact, Reflexes intact, Cranial nerves intact, Alert and Oriented Psychiatric: Affect appropriate and Mood appropriate Interpretation Radiology Interpretation Radiology Interpretation By: Radiologist Radiology Results: No acute changes Exam Interpreted: CT Scan Neon Sign Worker Rate: Normal Rhythm: Sinus Ectopy: None EKG Interpretation Rate: Normal Rhythm: Sinus Ectopy: None Sprague: NL ST Segment: Normal Re-Evaluation Re-Evaluation Time of Re-Evaluation: 18:26 Status: Improved Vital Signs Stable: Yes Appearance: NAD Lungs: Clear Skin: Warm and Dry Neuro: Alert and Oriented X3 CV: RRR Physician Notification Case Discussed Physician Notified: pmd Time of Notification: 18:26 Critical Care Note Critical Care Note Total Time (mins): 0 Course Course Hematology/Chemistry: 09/16/19 17:00 09/16/19 17:00 Orders, Labs, Meds: Lab Review 09/16/19 09/16/19 09/16/19 17:00 17:00 17:00 WBC 6.16 RBC 2.04 L Hgb 7.2 L Hct 21.9 L MCV 107.4 H MCH 35.3 H MCHC 32.9 RDW Coeff of Alonso 20.3 H Plt Count 226 Immature Gran % (Auto) 1.1 Neut % (Auto) 70.1 Lymph % (Auto) 14.0 Dixon % (Auto) 14.0 H Eos % (Auto) 0.6 Baso % (Auto) 0.2 Immature Gran # (Auto) 0.1 Neut # (Auto) 4.3 Lymph # (Auto) 0.9 Dixon # (Auto) 0.9 Eos # (Auto) 0.0 Baso # (Auto) 0.0 PT 11.0 INR 1.13 APTT 24.7 Sodium 135.2 Potassium 4.28 Chloride 102.7 Carbon Dioxide 30.6 H Anion Gap 6.18 BUN 16.7 Creatinine 0.53 L Estimated GFR (MDRD) 109.00 BUN/Creatinine Ratio 31.50 Glucose 117.7 H Calcium 8.54 Total Bilirubin 1.94 H AST 27.8 ALT 13.5 Alkaline Phosphatase 66.5 Total Protein 5.48 L Albumin 3.09 L Globulin 2.39 Albumin/Globulin Ratio 1.29 Orders Category Date Time Status EKG-(ED ONLY) Stat CARDIO 09/16/19 16:53 Completed EKG-(IP & OP ONLY) DAILY CARDIO 09/17/19 06:00 Ordered EKG-(IP & OP ONLY) DAILY CARDIO 09/18/19 06:00 Ordered EKG-(IP & OP ONLY) DAILY CARDIO 09/19/19 06:00 Ordered ACTIVITY .Complete BR CARE 09/16/19 18:16 Ordered BLOOD GLUCOSE MONITORING ACCUCHECK Q6H CARE 09/16/19 18:16 Ordered INTAKE & OUTPUT Q8HR CARE 09/16/19 18:16 Ordered ORDER H&H 1HR POST TRANSFUSION ONCE CARE 09/16/19 18:17 Ordered VITAL SIGNS Q4HR CARE 09/16/19 18:16 Ordered REGULAR DIET DIETARY 09/16/19 Dinner Ordered CBC W/ AUTO DIFF DAILY@0600 LAB 09/17/19 06:00 Ordered CBC W/ AUTO DIFF DAILY@0600 LAB 09/18/19 06:00 Ordered CBC W/ AUTO DIFF Stat LAB 09/16/19 17:00 Completed COMPREHENSIVE METABOLIC PANEL DAILY@0600 LAB 09/17/19 06:00 Ordered COMPREHENSIVE METABOLIC PANEL DAILY@0600 LAB 09/18/19 06:00 Ordered COMPREHENSIVE METABOLIC PANEL Stat LAB 09/16/19 17:00 Completed PACKED CELLS Routine LAB 09/16/19 18:17 Ordered PARTIAL THROMBOPLASTIN TIME Stat LAB 09/16/19 17:00 Completed PT WITH INR Stat LAB 09/16/19 17:00 Completed TYPE AND SCREEN Routine LAB 09/16/19 18:17 Ordered Apixaban [Eliquis] MEDS 09/16/19 21:00 Ordered 2.5 mg PO BID Citalopram Hydrobromide [Celexa] MEDS 09/17/19 09:00 Ordered 20 mg PO DAILY Docusate Sodium [Colace] MEDS 09/16/19 21:00 Ordered 100 mg PO BID Donepezil HCl [Aricept] MEDS 09/16/19 21:00 Ordered 5 mg PO BEDTIME Duloxetine HCl [Cymbalta] MEDS 09/17/19 09:00 Ordered 60 mg PO DAILY Furosemide [Lasix Tab] MEDS 09/17/19 09:00 Ordered 20 mg PO DAILY Oxycodone-Acetaminophen 5-325 [Percocet 5-325] MEDS 09/16/19 18:18 Ordered 1 tab PO Q6H PRN Potassium Chloride [Micro-K Cap] MEDS 09/17/19 09:00 Ordered 10 meq PO DAILY Sodium Chloride 0.9% [Sodium Chloride] 1,000 ml MEDS 09/16/19 18:30 Ordered IV 75 mls/hr latanoprost (PF) MEDS 09/16/19 21:00 Ordered 1 drop OP BEDTIME pantoprazole [Protonix] MEDS 09/17/19 09:00 Ordered 40 mg PO DAILY polyethylene glycol 3350 [Miralax] MEDS 09/17/19 09:00 Ordered 17 gm PO DAILY sennosides-docusate sodium [Senokot-S] MEDS 09/17/19 09:00 Ordered 1 tab-cap PO DAILY CT ABDOMEN/PELVIS WO CONTRAST Stat RADS 09/16/19 16:53 Completed Medications Generic Name Dose Route Start Last Admin Trade Name Freq PRN Reason Stop Dose Admin Apixaban 2.5 mg 09/16/19 21:00 Eliquis PO BID VELIA Citalopram Hydrobromide 20 mg 09/17/19 09:00 Celexa PO DAILY [facility] Docusate Sodium 100 mg 09/16/19 21:00 Colace PO BID VELIA Donepezil HCl 5 mg 09/16/19 21:00 Aricept PO BEDTIME VELIA Duloxetine HCl 60 mg 09/17/19 09:00 Cymbalta PO DAILY VELIA Furosemide 20 mg 09/17/19 09:00 Lasix Tab PO DAILY [facility] Sodium Chloride 1,000 mls @ 75 mls/hr 09/16/19 18:30 Sodium Chloride IV .[id number] VELIA Non-Formulary Medication 17 gm 09/17/19 09:00 Polyethylene Glycol 3350 [Miralax] PO DAILY VELIA Non-Formulary Medication 1 tab-cap 09/17/19 09:00 Sennosides-Docusate Sodium [Senokot-S] PO DAILY VELIA Non-Formulary Medication 1 drop 09/16/19 21:00 Latanoprost (Pf) OP BEDTIME VELIA Non-Formulary Medication 40 mg 09/17/19 09:00 Pantoprazole [Protonix] PO DAILY EVLIA Oxycodone/Acetaminophen 1 tab 09/16/19 18:18 Percocet 5-325 PO Q6H PRN Analgesia Potassium Chloride 10 meq 09/17/19 09:00 Micro-K Cap PO DAILY [facility] Vital Signs: Temp Pulse Resp BP Pulse Ox 09/16/19 16:19 98.2 F 72 16 130/53 L 98 Discharge Plan Discharge Patient Disposition: ADMITTED INPATIENT Discharge Problem: Anemia Prescriptions: No Action pantoprazole [Protonix] 20 MG tablet,delayed release (DR/EC) 40 mg PO DAILY RF: 0 duloxetine [Cymbalta] 60 MG capsule,delayed release(DR/EC) 60 mg PO DAILY RF: 0 donepezil [Aricept] 5 MG tablet 5 mg PO BEDTIME RF: 0 citalopram 20 MG tablet 20 mg PO DAILY RF: 0 sennosides-docusate sodium [Senokot-S] 8.6-50 mg Tablet 1 tab-cap PO DAILY RF: 0 oxycodone-acetaminophen 5-325 mg Tablet 1 tab PO Q6H PRN (Reason: Mod to severe pain) RF: 0 nicotine 21 mg/24 hr Patch 24 Hour 1 patch TRANSDERMAL DAILY RF: 0 docusate sodium 100 mg Capsule 100 mg PO BID RF: 0 furosemide 20 mg Tablet 20 mg PO DAILY RF: 0 polyethylene glycol 3350 [Miralax] 17 gram/dose Powder 17 g PO DAILY RF: 0 apixaban 2.5 mg Tablet 2.5 mg PO BID RF: 0 latanoprost (PF) 7.5 ML drops 1 drp BOTHEYES BEDTIME RF: 0 potassium chloride [K-Tab] 10 MEQ tablet extended release 10 meq PO DAILY Qty: 7 RF: 0 ED Provider: MELA TATE Condition: Good
[2019-09-16] MEDS: PERCOCET 5-325 PO PRN (20:17)
[2019-09-16] MEDS: ARICEPT PO SCH (20:31)
[2019-09-16] MEDS: XALATAN EACHEYE SCH (20:32)
[2019-09-16] MEDS: COLACE PO SCH (21:25)
[2019-09-16] MEDS: ELIQUIS PO SCH (21:25)
[2019-09-17] MEDS: SODIUM CHLORIDE 1,000 ML IV SCH ×3 (04:04→16:30)
[2019-09-17 05:06] LABS: HEMATOCRIT 29.6 % (37.0-47.0)
[2019-09-17] MEDS: PROTONIX PO SCH (05:34)
[2019-09-17] MEDS: LASIX TAB PO SCH (08:41)
[2019-09-17] MEDS: MICRO-K CAP PO SCH (08:41)
[2019-09-17] MEDS: MIRALAX PO SCH (08:41)
[2019-09-17] MEDS: CYMBALTA PO SCH (08:41)
[2019-09-17] MEDS: ELIQUIS PO SCH ×2 (08:41→20:07)
[2019-09-17] MEDS: CELEXA PO SCH (08:41)
[2019-09-17] MEDS: COLACE PO SCH ×2 (08:41→20:07)
[2019-09-17] MEDS: SENNOSIDES DOCUSATE SODIUM PO SCH (15:07)
[2019-09-17] MEDS: ARICEPT PO SCH (20:06)
[2019-09-17] MEDS: PERCOCET 5-325 PO PRN (20:07)
[2019-09-17] MEDS: XALATAN EACHEYE SCH (22:15)
[2019-09-18] MEDS: SODIUM CHLORIDE 1,000 ML IV SCH ×2 (05:00→17:33)
[2019-09-18 05:10] LABS: HEMATOCRIT 29.1 % (37.0-47.0)
[2019-09-18] MEDS: PROTONIX PO SCH (06:14)
[2019-09-18] MEDS: LASIX TAB PO SCH (06:14)
[2019-09-18] MEDS: MICRO-K CAP PO SCH (08:04)
[2019-09-18] MEDS: COLACE PO SCH ×2 (08:04→20:11)
[2019-09-18] MEDS: CELEXA PO SCH (08:04)
[2019-09-18] MEDS: MIRALAX PO SCH (08:04)
[2019-09-18] MEDS: CYMBALTA PO SCH (08:04)
[2019-09-18] MEDS: ELIQUIS PO SCH ×2 (08:05→20:11)
[2019-09-18] MEDS: SENNOSIDES DOCUSATE SODIUM PO SCH (08:05)
[2019-09-18] MEDS: ARICEPT PO SCH (20:12)
[2019-09-18] MEDS: XALATAN EACHEYE SCH (20:13)
[2019-09-18] MEDS: PERCOCET 5-325 PO PRN (20:14)
[2019-09-19] MEDS: SODIUM CHLORIDE 1,000 ML IV SCH ×2 (05:39→08:03)
[2019-09-19] MEDS: PROTONIX PO SCH (06:07)
[2019-09-19] MEDS: LASIX TAB PO SCH (06:08)
[2019-09-19] MEDS: PERCOCET 5-325 PO PRN ×3 (06:08→20:42)
--- NOTE | 2019-09-19 08:29 | PCM.PROG ---
Attending Provider: ATTENDING PROVIDER: Dr. GEORGI DARNELL This patient is seen with Arti Beck, Nurse Practitioner. DATE OF SERVICE: 09/19/19 SUBJECTIVE: This 89 year old /WHITE F was hospitalized 09/16/19. The patient is resting comfortably. Hgb is stable post transfusion. U/A is abnormal with 4+ bacteria. The patient has incontinence. REVIEW OF SYSTEMS: CONSTITUTIONAL: No night sweats. No fatigue, malaise, lethargy. No fever or chills. Weakness. HEENT: Eyes: No visual changes. No eye pain. No eye discharge. ENT: No runny nose. No epistaxis. No sinus pain. No odynophagia. No congestion. RESPIRATORY: No cough, no congestion. No hemoptysis. No shortness of breath. CARDIOVASCULAR: No angina symptoms. No CHF symptoms. No atypical chest pain for CAD. No palpitations. No orthopnea.. GASTROINTESTINAL: No abdominal pain. No nausea or vomiting. No diarrhea or c onstipation. No hematemesis. No hematochezia. GENITOURINARY: No urgency. No frequency. No dysuria. No hematuria. No obstructive symptoms. No discharge. No pain. No significant abnormal bleeding. MUSCULOSKELETAL: No musculoskeletal pain; no joint swelling. Right hip pain. NEUROLOGICAL: Awake, alert, oriented to time, place and person. No headache. No neck pain. No syncope. No seizures. No dizziness. PSYCHIATRIC: Not anxious. No depression. No suicidal thoughts. No homicidal thoughts. SKIN: No rash. No lesions. No wounds. ENDOCRINE: No unexplained weight loss. No weight gain. HEMATOLOGIC/LYMPHATIC:Anemia. No purpura. No petechiae. No prolonged or excessive bleeding. No palpable lymph nodes. PHYSICAL EXAMINATION: GENERAL: The patient is awake, alert and oriented, lying in bed in no distress. VITAL SIGNS: Temperature 98.3 F, Pulse 67, Respiratory Rate 18, BP 147/65, Pulse Ox 98% HEENT: Head normocephalic, atraumatic. Eyes: Extraocular muscles are intact. Pupils are equal, round and reactive to light and accommodation. Ears: No lesions. Nose appeared normal. Throat: No exudate or erythema. NECK: Supple. No JVD, no carotid bruit. No lymphadenopathy or thyromegaly. LUNGS: Diminished breath sounds. Clear to auscultation. Percussion note normal. Chest symmetrical. HEART: S1, S2, no S3. Grade I/ systolic murmurs. No cyanosis or clubbing. No ascites. Pulses: Dorsalis pedis and posterior tibial pulses +1 to +2 both sides. ABDOMEN: Soft. Non-tender. Bowel sounds active. No CVA tenderness. No mass felt. EXTREMITIES: No edema. Full range of motion of all extremities, equal. Incision right hip; clean, dry and intact. NEUROLOGIC: No focal deficit. Cranial nerves II through XII are grossly intact. No headache, no double vision or headache. SKIN: Not dry. Intact. Turgor-normal. LYMPHATIC: No palpable lymph nodes/no lymphedema. MUSCULOSKELETAL: Normal joints with no swelling. Muscle tone is normal. LAB REVIEW: 09/19/19 04:37 09/19/19 04:37 09/19/19 04:37: Sodium 134.5, Potassium 3.79, Chloride 103.3, Carbon Dioxide 29.0, Anion Gap 5.99, BUN 13.0, Creatinine 0.34 L, Estimated GFR (MDRD) 181.00, BUN/Creatinine Ratio 38.23, Glucose 113.7 H, Calcium 8.14 L, Total Bilirubin 2.30 H, AST 28.1, ALT 16.7, Alkaline Phosphatase 80.7, Total Protein 5.02 L, Albumin 2.83 L, Globulin 2.19, Albumin/Globulin Ratio 1.29 09/19/19 04:37: WBC 4.49 L, RBC 2.90 L, Hgb 9.7 L, Hct 29.0 L, MCV 100.0 H, MCH 33.4 H, MCHC 33.4, RDW Coeff of Alonso 19.2 H, Plt Count 274, Immature Gran % (Auto) 1.8, Neut % (Auto) 59.1, Lymph % (Auto) 16.9, [place] % (Auto) 16.0 H, Eos % (Auto) 5.8, Baso % (Auto) 0.4, Immature Gran # (Auto) 0.1, Neut # (Auto) 2.7, Lymph # (Auto) 0.8, [place] # (Auto) 0.7, Eos # (Auto) 0.3, Baso # (Auto) 0.0 09/18/19 17:00: Urine Color Yellow, Urine Clarity Slightly, Urine pH 7.0, Ur Specific [place] 1.025, Urine Protein Negative, Urine Glucose (UA) Negative, Urine Ketones Negative, Urine Blood Trace-intact, Urine Nitrite Positive, Urine Bilirubin Negative, Urine Urobilinogen >=8.0, Ur Leukocyte Esterase 1+, Urine Microscopic RBC 0-2, Urine Microscopic WBC 5-10, Ur Squamous Epith Cells 2-5, Urine Bacteria 4+ ASSESSMENT: Please see below. 1. Anemia 2. Status post right hip fracture repair 3. UTI, Culture pending 4. Generalized weakness. PLAN: 1. Discontinue IV fluids 2. Rocephin 1 gram IV daily 3. Monitor HGB Plan and coordination of the patient's care discussed in the presence of Quality Control Checker and nurse. SCRIBED BY: Angie RAMÍREZ scribed while in presence of service performed by Dr. Darnell/Arti Beck APRN on 09/19/19 ([id number])
[2019-09-19] MEDS: MIRALAX PO SCH (08:36)
[2019-09-19] MEDS: COLACE PO SCH ×2 (08:37→20:42)
[2019-09-19] MEDS: CYMBALTA PO SCH (08:37)
[2019-09-19] MEDS: MICRO-K CAP PO SCH (08:38)
[2019-09-19] MEDS: CELEXA PO SCH (08:38)
[2019-09-19] MEDS: ROCEPHIN 1 GM/50 ML D5W 1 GM/50 ML BAG IV SCH (08:39)
[2019-09-19] MEDS: ELIQUIS PO SCH ×2 (08:39→20:44)
[2019-09-19] MEDS: SENNOSIDES DOCUSATE SODIUM PO SCH (08:43)
--- NOTE | 2019-09-19 12:41 | PN ---
DATE OF SERVICE: 09/16/2019 SUBJECTIVE: The patient was hospitalized through the emergency room because of anemia. The patient's hgb was reported as 6.8 in the shelter. The patient has recently been readmitted to the shelter after she had suffered the fracture of the hip which was repaired. The patient's hgb there was 7.1 and was given a couple of units of packed red cells and discharged to the shelter. According to the ER physician the patient had no evidence of active GI bleed. CT scan of the abdomen was negative. All her CMP that is liver and kidney profile were normal in fact her kind functions were super normal. The patient is confused and has severe dementia. She is alert, looks pale. The patient has failure to thrive. She is going to be admitted and given two units of packed red cells. She will be monitored for a couple of days. CONDITION: Stable. PROGNOSIS: Guarded TIME SPENT: More than 30 minutes. Plan and coordination of the patient's care discussed in the presence of nurse. PETE
--- NOTE | 2019-09-19 13:35 | RS.OTINEVL ---
Subjective - Patient information Date of Evaluation: 09/19/19 Date of Arrival on Unit: 09/16/19 Admitted From:: Care Home Diagnosis: Right hip pinning, Anemia, Weakness PRECAUTIONS: NWB Usual Living Arrangement: Care Home Living Arrangement Comments: prior to hip fx pt lived with son Home Environment: Level/No stairs Medical History: Hypertension Medical History Comments:: hypothyroidism, GERD, depression, fall with R hip fx 09/10/19. LATEX ALLERGY?: No Surgical History Comments:: R hip fx repair on 09/11/19 Medications: see chart Subjective Information/ Patient Comments:: "I moved." "I don't feel good." - Level of function Abilities prior to this admission: Pt was able to walk in the home. She lives with her son. Current Level of Function: Partially Dependent Current Equipment Used at Home: uses a quad cane at home, bedridden as of now Pain Assessment - Pain Pain Score: 9 Pain Location Body Site: Hip Pain Aggravating Factors: ADL's, Changing Position, Standing Pain Alleviating Factors: Medication, Sitting Interventions - Objective Patient Orientation: Person Current Interventions: IV's, Telemetry Interventions - ROM Right Upper Extremity AROM: WFL's Left Upper Extremity AROM: WFL's - Strength Right Upper Extremity Strength: Mild Weakness Left Upper Extremity Strength: Mild Weakness - Sensation Right Upper Extremity Sensation: Intact/Normal Left Upper Extremity Sensation: Intact/Normal Balance - Sitting Balance Static Sitting Balance: Fair Dynamic Sitting Balance: Fair - Standing Balance Static Standing Balance: Poor Dynamic Standing Balance: Poor ADL Skills - Self Feeding Self Feeding: Independent - Bathing Bathing UE: Min Assist Bathing LE: Max Assist - Dressing Dressing UE: Min Assist Dressing LE: Max Assist - Toilet Management Toileting Management: Max Assist, 2 person assist Functional Mobility - Bed Mobility Rolling R/L: Min Assist Scooting: Mod Assist Supine to Sit: Mod Assist Sit to Supine: Mod Assist - Transfers Sit to Stand: Mod Assist, 2 person assist Stand to Sit: Mod Assist, 2 person assist Stand Pivot Transfers: Mod Assist, 2 person assist - Ambulation Weight Bearing Status: NWB Assistive Device Used: Rolling Walker Assistance needed with Ambulation: Max Assist, 2 person assist, Not Tested - Safety Awareness Safety Awareness: Poor ADAM INDEX SCORE: . Additional Treatment Performed - Time with patient Length of Evaluation: 22 Total treatment time: 25 Activities Do you enjoy playing games?: No Would you be interested in leaving your room for activities?: No Would you enjoy group activities?: No Do you have difficulty with your vision?: No Patient Interests:: Visiting/Socializing Patient Education Patient Education: Education of diagnosis, Home Safety, Education of Plan of Care Teaching Recipient: Patient Teaching Methods: Discussion Comments: Pt educated regarding not putting weight on her RLE during sit to stand. Assessment Problem List:: Decreased level of function, Requires training/education, Decreased safety/Risk of falls, Weakness, Pain limits previous level of function Rehab Potential: Fair Further Therapy Indicated?: Yes Evaluation Complexity: HISTORY: Medium, EXAM OF BODY SYSTEMS: Medium, CLINICAL DECISION MAKING: Medium Patient's Goal(s): To get better and go home. Short Term Goals - Goals GOAL 1: Pt to be able to complete self care at sink level CGA. Goal to be met by: 09/22/19 GOAL 2: Pt to increase BUE strength to 4/5. Goal to be met by: 09/22/19 GOAL 3: Pt to be min assistance to complete sit to stand and maintain NWB status. Goal to be met by: 09/22/19 Nursing Home Goals GOAL 1: Pt to be mod-I with sink level ADLS. Goal to be met by: 09/23/19 GOAL 2: To increase BUE strength to 4+/5. Goal to be met by: 09/23/19 GOAL 3: Pt to be CGA to complete sit to stand and maintain NWB status. Goal to be met by: 09/23/19 Plan Plan of Care: Therapeutic EX, Therapeutic Activity, Self-Care/Home Management Modalities: Cold Pack/Cryotherapy Frequency of Treatment: 1-2 X day, as tolerated Duration of Treatment: 1 Week Anticipated Discharge Destination: Home Treatment Diagnosis (ICD 10 Codes): Muscle weakness M62.81, Need for assistance with personal care Z74.1 Has the Physician been added for Co-signature?: Yes
--- NOTE | 2019-09-19 15:43 | RS.PTINEVL ---
Subjective - Patient information Date of Evaluation: 09/19/19 Date of Arrival on Unit: 09/16/19 Admitted From:: [facility] Diagnosis: anemia, dementia Usual Living Arrangement: [facility] Living Arrangement Comments: prior to hip fx pt lived with son Home Environment: Level/No stairs Medical History: Hypertension Medical History Comments:: hypothyroidism, GERD, depression, fall with R hip fx 09/10/19. LATEX ALLERGY?: No Surgical History Comments:: R hip fx repair on 09/11/19 Medications: see chart Subjective Information/ Patient Comments:: pt states that she "feels terrible". pt with no c/o pain at rest, states again "I feel terrible." pt with very softly, somewhat garbled at times. - Level of function Abilities prior to this admission: pt required total care at the long-term due to being NWB RLE. Current Level of Function: Partially Dependent Current Equipment Used at Home: uses a quad cane at home, bedridden as of now Pain Assessement - Location R hip Description: Sharp Pain Behavior: Moaning, Crying, Facial Grimacing Pain Aggravating Factors: ADL's, Changing Position, Exercise/Activity, Sitting Pain Alleviating Factors: Medication Interventions - Objective Patient Orientation: Person, Place Current Interventions: IV's, Telemetry Observation: pt with edema RLE with bruising noted to R hip Range of Motion - ROM Right Upper Extremity AROM: WFL's Left Upper Extremity AROM: WFL's Right Lower Extremity AROM: Moderate limitation (due to R hip fx and pain) Left Lower Extremity AROM: WFL's Muscle Strength - Muscle Strength Right Upper Extremity Strength: Mild Weakness (shld flex 3+/5, elbow flex/ext 4- /5) Left Upper Extremity Strength: Mild Weakness (shld flex 3+/5, elbow flex/ext 4- /5) Right Lower Extremity Strength: Severe Weakness (hip flex 3-/5, knee flex/ext 3/5, ankle DF/PF 4-/5) Left Lower Extremity Strength: Mild Weakness (hip flex 3+/5, knee flex/ext 4-/5, ankle DF/PF 4-/5) Sensation - Sensation Right Upper Extremity Sensation: Intact/Normal Left Upper Extremity Sensation: Intact/Normal Right Lower Extremity Sensation: Intact/Normal Left Lower Extremity Sensation: Intact/Normal Palpation Palpation Findings: Tenderness Comments:: tenderness to palpation R hip Balance - Sitting Balance and Reactions Static Sitting Balance: Poor Dynamic Sitting Balance: Poor Sitting Equilibrium Reactions: Delayed Left, Delayed Right Sitting Protective Reactions: Delayed Left, Delayed Right - Standing Balance and Reactions Static Standing Balance: Poor Dynamic Standing Balance: Poor Standing Equilibrium Reactions: Delayed Left, Delayed Right Standing Protective Reactions: Delayed Left, Delayed Right - Comments Balance Assessment Comments: pt able to maintain balance at side of bed with SBA without challenges to balance x 1 min. Functional Mobility - Bed Mobility Rolling R/L: Mod Assist Scooting: Max Assist, 2 person assist Supine to Sit: Mod Assist, 2 person assist - Transfers Sit to Stand: Max Assist, 2 person assist Stand Pivot Transfers: Max Assist, 2 person assist Comments:: Stand pivot bed to chair with max of 2. pt unable to maintain NWB RLE. - Safety Awareness Safety Awareness: Poor ADAM INDEX SCORE: n/a Ambulation - Ambulation Ambulation Comments: unable to amb due to unable to maintain NWB RLE Treatment time - Time with patient Length of Evaluation: 23 Total treatment time: 29 Patient Education - Education Patient Education: Activity Modification, Education of Plan of Care Teaching Recipient: Patient Teaching Methods: Discussion Comments: discussion regarding POC Assessment - Assessment Problem List:: Decreased level of function, Requires training/education, Decreased safety/Risk of falls, Weakness, Pain limits previous level of function, Cognitive status limits abilities Rehab Potential: Fair Further Therapy Indicated?: Yes Candidate for Swing Bed for Therapy Services?: Feel pt will require LTC for rehab due to NWB RLE for 6 weeks. Evaluation Complexity: HISTORY: Medium, EXAM OF BODY SYSTEMS: Medium, CLINICAL PRESENTATION: Medium, CLINICAL DECISION MAKING: Medium Patient's Goal(s): feel better and stronger. Short Term Goals GOAL #1: pt demonstrate rolling with min x 1 Goal to be met by: 09/22/19 GOAL #2: Sup to/from sit mod x 1 Goal to be met by: 09/22/19 GOAL #3: Sit to/from stand mod x 2 NWB RLE Goal to be met by: 09/22/19 GOAL #4: Stand pivot bed to/from chair mod x 2 NWB RLE Goal to be met by: 09/22/19 [facility] Goals GOAL #1: pt demonstrate rolling with bedrails min to CGA Goal to be met by: 09/24/19 GOAL #2: Sup to/from sit min x 1, sit to/from stand mod x 1 NWB RLE Goal to be met by: 09/24/19 GOAL #3: Improve RLE strength 4-/5 Goal to be met by: 09/24/19 Plan Plan of Care: Therapeutic EX, Therapeutic Activity Other:: transfer training Frequency of Treatment: 1-2 X day, as tolerated Duration of Treatment: 5 days Anticipated Discharge Destination: Home Treatment Diagnosis (ICD 10 Codes): R 26.81 balance impaired. R 26.2 difficulty walking. general weakness M62.81. s/p R hip pinning Has the Physician been added for Co-signature?: Yes
[2019-09-19] MEDS ORDERED: CALMOSEPTINE OINTMENT TP PRN (19:26)
[2019-09-19] MEDS: ARICEPT PO SCH (20:41)
[2019-09-19] MEDS: XALATAN EACHEYE SCH (20:48)
[2019-09-20 05:05] VITALS: BP 146/67; TEMP 97.9
[2019-09-20 05:24] LABS: HEMATOCRIT 31.2 % (37.0-47.0)
[2019-09-20] MEDS: PROTONIX PO SCH (05:45)
[2019-09-20] MEDS: LASIX TAB PO SCH (05:45)
[2019-09-20] MEDS: MIRALAX PO SCH (08:22)
[2019-09-20] MEDS: CELEXA PO SCH (08:22)
[2019-09-20] MEDS: CYMBALTA PO SCH (08:22)
[2019-09-20] MEDS: MICRO-K CAP PO SCH (08:22)
[2019-09-20] MEDS: COLACE PO SCH (08:22)
[2019-09-20] MEDS: ROCEPHIN 1 GM/50 ML D5W 1 GM/50 ML BAG IV SCH (08:22)
[2019-09-20] MEDS: SENNOSIDES DOCUSATE SODIUM PO SCH (08:23)
[2019-09-20] MEDS: ELIQUIS PO SCH (08:23)
--- NOTE | 2019-09-20 08:39 | PCM.PROG ---
Attending Provider: ATTENDING PROVIDER: Dr. GEORGI HOLLAND This patient is seen with Arti Beck, Nurse Practitioner. DATE OF SERVICE: 09/20/19 SUBJECTIVE: This 89 year old /WHITE F was hospitalized 09/16/19. The patient is resting comfortably. Urine culture was positive for Klebsiella and E-coli. The patient has been afebrile. Eating well. Hgb is stable. REVIEW OF SYSTEMS: CONSTITUTIONAL: No night sweats. No fatigue, malaise, lethargy. No fever or chills. Weakness. HEENT: Eyes: No visual changes. No eye pain. No eye discharge. ENT: No runny nose. No epistaxis. No sinus pain. No odynophagia. No congestion. RESPIRATORY: No cough, no congestion. No hemoptysis. No shortness of breath. CARDIOVASCULAR: No angina symptoms. No CHF symptoms. No atypical chest pain for CAD. No palpitations. No orthopnea.. GASTROINTESTINAL: No abdominal pain. No nausea or vomiting. No diarrhea or constipation. No hematemesis. No hematochezia. GENITOURINARY: No urgency. No frequency. No dysuria. No hematuria. No obstructive symptoms. No discharge. No pain. No significant abnormal bleeding. MUSCULOSKELETAL: No musculoskeletal pain; no joint swelling. NEUROLOGICAL: Awake, alert, oriented to time, place and person. No headache. No neck pain. No syncope. No seizures. No dizziness. PSYCHIATRIC: Not anxious. No depression. No suicidal thoughts. No homicidal thoughts. SKIN: No rash. No lesions. No wounds. ENDOCRINE: No unexplained weight loss. No weight gain. HEMATOLOGIC/LYMPHATIC: No anemia. No purpura. No petechiae. No prolonged or excessive bleeding. No palpable lymph nodes. PHYSICAL EXAMINATION: GENERAL: The patient is awake, alert and oriented, lying in bed in no distress. VITAL SIGNS: Temperature 97.9 F, Pulse 65, Respiratory Rate 18, BP 146/67, Pulse Ox 96% HEENT: Head normocephalic, atraumatic. Eyes: Extraocular muscles are intact. Pupils are equal, round and reactive to light and accommodation. Ears: No lesions. Nose appeared normal. Throat: No exudate or erythema. NECK: Supple. No JVD, no carotid bruit. No lymphadenopathy or thyromegaly. LUNGS: Diminished breath sounds. Clear to auscultation. Percussion note nor mal. Chest symmetrical. HEART: S1, S2, no S3. No murmurs. No cyanosis or clubbing. No ascites. Pulses: Dorsalis pedis and posterior tibial pulses +1 to +2 both sides. ABDOMEN: Soft. Non-tender. Bowel sounds active. No CVA tenderness. No mass felt. EXTREMITIES: No edema. Full range of motion of all extremities, equal. NEUROLOGIC: No focal deficit. Cranial nerves II through XII are grossly intact. No headache, no double vision or headache. SKIN: Not dry. Intact. Turgor-normal. LYMPHATIC: No palpable lymph nodes/no lymphedema. MUSCULOSKELETAL: Normal joints with no swelling. Muscle tone is normal. LAB REVIEW: 09/20/19 04:52 09/20/19 04:52 09/20/19 04:52: Sodium 133.1 L, Potassium 3.94, Chloride 98.7, Carbon Dioxide 32.5 H, Anion Gap 5.84, BUN 13.3, Creatinine 0.41 L, Estimated GFR (MDRD) 146.00, BUN/Creatinine Ratio 32.43, Glucose 104.9, Calcium 8.47, Total Bilirubin 2.17 H, AST 20.5, ALT 16.0, Alkaline Phosphatase 97.4, Total Protein 5.42 L, Alb umin 3.07 L, Globulin 2.35, Albumin/Globulin Ratio 1.30 09/20/19 04:52: WBC 3.80 L, RBC 3.08 L, Hgb 10.2 L, Hct 31.2 L, MCV 101.3 H, MCH 33.1 H, MCHC 32.7, RDW Coeff of Alonso 18.8 H, Plt Count 282, Immature Gran % ( Auto) 1.3, Neut % (Auto) 53.5, Lymph % (Auto) 22.9, [place] % (Auto) 16.3 H, Eos % (Auto) 5.5, Baso % (Auto) 0.5, Immature Gran # (Auto) 0.1, Neut # (Auto) 2.0, Lymph # (Auto) 0.9, [place] # (Auto) 0.6, Eos # (Auto) 0.2, Baso # (Auto) 0.0 ASSESSMENT: Please see below. 1. Anemia, Stable 2. Status post right hip fracture 3. Urinary tract infection 4. Myelodysplastic syndrome. The patient quit going to Dr. Amor some time ago on her own. PLAN: 1. Discharge back to [place] 2. Bactrim DS BID times 7 days 3. CBC and CMP Thursday then weekly. 4. Iron 325mg daily. Plan and coordination of the patient's care discussed in the presence of Banquet Chef and nurse. SCRIBED BY: MANJINDER DOWNEY, Medicaid Specialist scribed while in presence of service performed by Dr. Holland/Arti Beck APRN on 09/20/19 ([id number])
[2019-09-20] MEDS ORDERED: SENNA PO SCH (09:00)
--- NOTE | 2019-09-20 09:28 | PN ---
DATE OF SERVICE: 09/19/2019 SUBJECTIVE: The patient was seen and examined with the Nurse Practitioner. The patient's condition is stable. She has dementia but she is alert. The oral intake is much better. No evidence of active GI bleed. TIME SPENT: More than 30 minutes. Plan and coordination of the patient's care discussed in the presence of nurse. PETE
--- NOTE | 2019-09-20 09:34 | PN ---
DATE OF SERVICE: 09/18/2019 SUBJECTIVE: 89 year old white female hospitalized with anemia and weakness. The patient has right hip repair which she has been recovering from very nicely. The patient is confused this morning but alert and somewhat sleepy. She was given one Percocet last evening. REVIEW OF SYSTEMS: CONSTITUTIONAL: No night sweats. No fatigue, malaise, lethargy. No fever or chills. HEENT: Eyes: No visual changes. No eye pain. No eye discharge. ENT: No runny nose. No epistaxis. No sinus pain. No sore throat. No odynophagia. No congestion. RESPIRATORY: No cough, no congestion. No hemoptysis. No shortness of breath. CARDIOVASCULAR: No angina symptoms. No CHF symptoms. No atypical chest pain for CAD. No palpitations. No PND. No orthopnea. GASTROINTESTINAL: No abdominal pain. No nausea or vomiting. No diarrhea or constipation. No hematemesis. No hematochezia. No evidence of active GI bleed. GENITOURINARY: No urgency. No frequency. No dysuria. No hematuria. No obstructive symptoms. No discharge. No pain. No significant abnormal bleeding. MUSCULOSKELETAL: No musculoskeletal pain; no joint swelling. NEUROLOGICAL: No headache. No neck pain. No syncope. No seizures. No dizziness. PSYCHIATRIC: Not anxious. No depression. No suicidal thoughts. No homicidal thoughts. SKIN: No rash. No lesions. No wounds. ENDOCRINE: No unexplained weight loss. No weight gain. HEMATOLOGIC/LYMPHATIC: No anemia. No purpura. No petechiae. No prolonged or excessive bleeding. No palpable lymph nodes. PHYSICAL EXAMINATION: VITAL SIGNS: Temperature 98.8, pulse 65, respiratory rate 14, blood pressure 139/62 and pulse ox 98% on room air. HEENT: Head normocephalic, atraumatic. Eyes: Extraocular muscles are intact. Pupils are equal, round and reactive to light and accommodation. Ears: No lesions. Nose appeared normal. Throat: No exudate or erythema. NECK: Supple. No JVD, no carotid bruit. No lymphadenopathy or thyromegaly. LUNGS: Decreased breath sounds but clear to auscultation. Percussion note normal. Chest symmetrical. HEART: S1, S2, no S3. No murmurs. No cyanosis or clubbing. No ascites. Pulses: Dorsalis pedis and posterior tibial pulses +1 to +2 bilaterally. ABDOMEN: Soft. Nontender. Bowel sounds active. No CVA tenderness. No mass felt. EXTREMITIES: No edema. Full range of motion of all extremities, equal. NEUROLOGIC: No focal deficit. Cranial nerves II through XII are grossly intact. No headache, no double vision or headache. SKIN: Not dry. Intact. Turgor - normal. LYMPHATIC: No palpable lymph nodes/no lymphedema. MUSCULOSKELETAL: Normal joints with no swelling. Muscle tone is normal. LABS: Hgb 9.6, hct 29, WBC 5,400 normal differential, creatinine 0.3, BUN 17, potassium 3.9 ASSESSMENT: 1. Anemia seems to have resolved. The cause of anemia was probably malnutrition and blood loss from surgery and given a couple of units before discharge from [facility]. No evidence of active GI bleed. Oral intake acceptable. Still not up to par 2. Right hip fracture seems to be healing well. Incision site is clean. No drainage. Mild bruising noted. Both calves nontender. Both extremities seems to be equal CONDITION: Stable. TIME SPENT: More than 30 minutes. Plan and coordination of the patient's care discussed in the presence of nurse. PETE
--- NOTE | 2019-09-20 10:01 | HP ---
DATE OF SERVICE: 09/16/19 HISTORY OF PRESENT ILLNESS: This is an 89-year-old white female who is currently staying at [facility] after having a fall, which had a right hip fracture. This was repaired. She was sent to [facility] for rehabilitation on Thursday. She is on Eliquis 2.5 mg b.i.d. for DVT prophylaxis. She required a transfusion prior to being discharged from the hospital for postop anemia. Hemoglobin on discharge from [facility] was 9.1. We rechecked her hemoglobin today and it was 6.9. She has been experiencing weakness, increased confusion, pallor. PAST MEDICAL HISTORY: History of GI bleed COPD Anemia Hyponatremia History of GI bleed last year. She had some bleeding in her colostomy bag associated with colitis while hospitalized in August of 2018. Dementia Hypothyroidism Depression PAST SURGICAL HISTORY: Bilateral cataract repair Status post hemicolectomy years ago, has a colostomy Status post hysterectomy History of melanoma on the right leg, which was removed REVIEW OF SYSTEMS: CONSTITUTIONAL: Positive for malaise, fatigue, weakness. No night sweats. No lethargy. No fever or chills. HEENT: Positive for pallor. Eyes: No visual changes. No eye pain. No eye discharge. ENT: No runny nose. No epistaxis. No sinus pain. No sore throat. No odynophagia. No ear pain. No congestion. RESPIRATORY: No cough, no congestion. No hemoptysis. No shortness of breath. CARDIOVASCULAR: No angina symptoms. No CHF symptoms. No atypical chest pain for CAD. No palpitations. No PND. No orthopnea. GASTROINTESTINAL: Positive for loss of appetite. No abdominal pain. No nausea or vomiting. No diarrhea or constipation. No hematemesis. No hematochezia. GENITOURINARY: No urgency. No frequency. No dysuria. No hematuria. No obstructive symptoms. No discharge. No pain. No significant abnormal bleeding. MUSCULOSKELETAL: Right hip pain. No joint swelling. NEUROLOGICAL: No headache. No neck pain. No syncope. No seizures. No dizziness. PSYCHIATRIC: Not anxious. No depression. No suicidal thoughts. No homicidal thoughts. SKIN: No rash. Two small incisions on the outer aspect of the right hip, both of which are clean, dry and intact. Slight swelling and bruising which is normal considering her recent postop status. ENDOCRINE: No unexplained weight loss. No weight gain. HEMATOLOGIC/LYMPHATIC: No anemia. No purpura. No petechiae. No prolonged or excessive bleeding. No palpable lymph nodes. PERSONAL/FAMILY/SOCIAL HISTORY: She is . She had been living at home with her son, which is where she experienced the fall. She is a smoker. No alcohol or ilicit drug use. Again, [facility] status post hip repair after her fracture. MEDICATIONS: (HOME) Duloxetine (Cymbalta) 60 mg p.o. daily Pantoprazole 40 mg p.o. daily Donepezil 5 mg p.o. bedtime Citalopram 20 mg p.o. daily Latanoprost one drop both eyes bedtime Potassium Chloride (K-Tab ER) 10 mEq p.o. daily Miralax 17 gm p.o. daily Furosemide 20 mg p.o. daily Docusate Sodium 100 mg p.o. b.i.d. Sennosides-Docusate Sodium 8.6-50 mg tablet, one tab cap p.o. daily Oxycodone-Acetaminophen 5-325 mg one tab p.o. q.6h p.r.n. Nicotine 21 mg/24 hour patch 24 hour one patch transdermal daily Apixaban 2.5 mg p.o. b.i.d. ALLERGIES: NKDA PHYSICAL EXAMINATION: GENERAL: Alert, oriented to person and place, not time. VITAL SIGNS: Temperature 98.2, heart rate 72, respirations 16, blood pressure 130/53, pulse ox 98%. HEENT: Head normocephalic, atraumatic. Eyes: Extraocular muscles are intact. Pupils are equal, round and reactive to light and accommodation. Ears: No lesions. Nose appeared normal. Throat: No exudate or erythema. NECK: Supple. No JVD, no carotid bruit. No lymphadenopathy or thyromegaly. LUNGS: Diminished breath sounds bilaterally. Clear to auscultation. Percussion note normal. Chest symmetrical. HEART: S1, S2, no S3. No murmur. No cyanosis or clubbing. No ascites. Pulses: Dorsalis pedis and posterior tibial pulses +1 to +2 bilaterally. ABDOMEN: Soft. Nontender. Bowel sounds active. No CVA tenderness. No mass felt. EXTREMITIES: Two small incisions on the outer aspect of the right hip. Slight swelling and bruising No edema. Full range of motion of all extremities, equal. NEUROLOGIC: No focal deficit. Cranial nerves II through XII are grossly intact. No headache, no double vision or headache. SKIN: Warm and dry. Intact. Turgor - normal. LYMPHATIC: No palpable lymph nodes/no lymphedema. MUSCULOSKELETAL: Normal joints with no swelling. Muscle tone is normal. LAB: White count 6.61, hemoglobin 7.2, hematocrit 21.9, platelets 226. Sodium 135, potassium 4.2, BUN 16, creatinine 0.5, glucose 117. Total protein 5.4, albumin 3.09. ASSESSMENT: 1. Anemia 2. Recent right hip fracture repair 3. History of anemia 4. History of underlying anemia 5. COPD 6. She has a colostomy PLAN: 1. We will admit. 2. Routine telemetry orders. 3. CBC, CMP daily. 4. Continue home medications. 5. Start Protonix 40 mg p.o. b.i.d. 6. She is on fall precautions. 7. Regular diet. 8. UA. 9. Chest x-ray. 10. Type and cross two units of packed red blood cells and transfuse with an H & H to follow. 11. Oxygen at 1 to 2L. 12. Will follow closely. TIME SPENT: More than 70 minutes. MTDD
--- NOTE | 2019-09-20 10:02 | PN ---
DATE OF SERVICE: 09/17/2019 SUBJECTIVE: 89 year old white female hospitalized with severe anemia. The patient hgb and hct this morning is 10.1 with hct of 29 after two units of packed red cells. She is feeling better. She is for the first time feeding herself. She says that the food is tasting much better. According to her everybody has instructed her to eat and get better. The patient is not oriented to place and time or person. REVIEW OF SYSTEMS: CONSTITUTIONAL: No night sweats. No fatigue, malaise, lethargy. No fever or chills. HEENT: Eyes: No visual changes. No eye pain. No eye discharge. ENT: No runny nose. No epistaxis. No sinus pain. No sore throat. No odynophagia. No congestion. RESPIRATORY: No cough, no congestion. No hemoptysis. No shortness of breath. CARDIOVASCULAR: No angina symptoms. No CHF symptoms. No atypical chest pain for CAD. No palpitations. No PND. No orthopnea. GASTROINTESTINAL: No abdominal pain. No nausea or vomiting. No diarrhea or constipation. No hematemesis. No hematochezia. GENITOURINARY: No urgency. No frequency. No dysuria. No hematuria. No obstructive symptoms. No discharge. No pain. No significant abnormal bleeding. MUSCULOSKELETAL: No musculoskeletal pain; no joint swelling. NEUROLOGICAL: No headache. No neck pain. No syncope. No seizures. No dizziness. PSYCHIATRIC: Not anxious. No depression. No suicidal thoughts. No homicidal thoughts. SKIN: No rash. No lesions. No wounds. ENDOCRINE: No unexplained weight loss. No weight gain. HEMATOLOGIC/LYMPHATIC: No anemia. No purpura. No petechiae. No prolonged or excessive bleeding. No palpable lymph nodes. PHYSICAL EXAMINATION: VITAL SIGNS: Temperature 97.5, pulse 67, respiratory rate 18, blood pressure 133/64 and pulse ox 97% HEENT: Head normocephalic, atraumatic. Eyes: Extraocular muscles are intact. Pupils are equal, round and reactive to light and accommodation. Ears: No lesions. Nose appeared normal. Throat: No exudate or erythema. NECK: Supple. No JVD, no carotid bruit. No lymphadenopathy or thyromegaly. LUNGS: Decreased breath sounds with good air entry. Clear to auscultation. Percussion note normal. Chest symmetrical. HEART: S1, S2, no S3. No murmurs. No cyanosis or clubbing. No ascites. Pulses: Dorsalis pedis and posterior tibial pulses +1 to +2 bilaterally. ABDOMEN: Soft. Nontender. Bowel sounds active. No CVA tenderness. No mass felt. EXTREMITIES: right lower extremity no edema. Full range of motion of all extremities, equal. NEUROLOGIC: No focal deficit. Cranial nerves II through XII are grossly intact. No headache, no double vision or headache. SKIN: Not dry. Intact. Turgor - a little bit better. LYMPHATIC: No palpable lymph nodes/no lymphedema. MUSCULOSKELETAL: Normal joints with no swelling. Muscle tone is normal. ASSESSMENT: 1. Anemia seems to have a combination of blood loss and nutrition. The patient was given 2 units, not hgb and hct are stable. The patient has shown signs of improvement with improvement in her appetite and she is trying to feed herself for the first time. 2. Right hip repair, no obvious finding of any injury to the other hip. 3. PLAN: 1. All the rest of the lab test; potassium, sodium and kidney tests are normal. Glucose is 108. TIME SPENT: More than 30 minutes. Plan and coordination of the patient's care discussed in the presence of nurse. PETE
[2019-09-20] MEDS: PERCOCET 5-325 PO PRN (11:25)
--- NOTE | 2019-09-20 11:38 | CM.DICTOOL ---
ADMISSION: 09/16/19 18:34 DISCHARGE: SEPTEMBER 20, 2019 DATE OF SERVICE: 09/20/19 FINAL DIAGNOSIS ANEMIA, TRANSFUSION 2 UNIT PACKED CELLS UTI, KLEBSIELLA PNEUMONIAE AND E-COLI ORGANISM RECENT FALL RIGHT HIP FRACTURE, TRANSFEMORAL NAIL 09/10/2019 COPD DIABETES MELLITUS, TYPE 2 GERD DEPRESSION ANXIETY MYELODYSPLASTIC SYNDROME DEMENTIA NON-COMPLIANCE WITH MEDS, FOLLOW-UP AND LIFESTYLE COLOSTOMY CHOLECYSTECTOMY HYSTERECTOMY CATARACT EXTRACTION LAST VITALS Temp Pulse Resp BP Pulse Ox 97.9 F 65 18 146/67 H 96 09/20/19 05:04 09/20/19 05:04 09/20/19 05:04 09/20/19 05:04 09/20/19 05:04 TAKE THESE MEDICATIONS AT HOME Apixaban (Eliquis) 2.5 mg PO BID [facility] Last Admin: 09/20/19 08:23 Dose: 2.5 mg Documented by: Citalopram Hydrobromide (Celexa) 20 mg PO DAILY [facility] Last Admin: 09/20/19 08:22 Dose: 20 mg Documented by: Docusate Sodium (Colace) 100 mg PO BID [facility] Last Admin: 09/20/19 08:22 Dose: 100 mg Documented by: Donepezil HCl (Aricept) 5 mg PO BEDTIME [facility] Last Admin: 09/19/19 20:41 Dose: 5 mg Documented by: Duloxetine HCl (Cymbalta) 60 mg PO DAILY [facility] Last Admin: 09/20/19 08:22 Dose: 60 mg Documented by: Furosemide (Lasix Tab) 20 mg PO QDAC [facility] Last Admin: 09/20/19 05:45 Dose: 20 mg Documented by: Latanoprost (Xalatan) 1 drop EACHEYE BEDTIME [facility] Last Admin: 09/19/19 20:48 Dose: 1 drop Documented by: Oxycodone/Acetaminophen (Percocet 5-325) 1 tab PO Q6H PRN PRN Reason: Analgesia Last Admin: 09/19/19 20:42 Dose: 1 tab Documented by: Pantoprazole Sodium (Protonix) 40 mg PO DAILY@0630 [facility] Last Admin: 09/20/19 05:45 Dose: 40 mg Documented by: Polyethylene Glycol (Miralax) 17 gm PO DAILY [facility] Last Admin: 09/20/19 08:22 Dose: 17 gm Documented by: Potassium Chloride (Micro-K Cap) 10 meq PO DAILYWM [facility] Last Admin: 09/20/19 08:22 Dose: 10 meq Documented by: Sennosides (Senna) 8.6 mg PO DAILY [facility] Last Admin: 09/20/19 08:36 Dose: 8.6 mg Documented by: Nicotine patch 1 patch transdermal daily Last Admin: ALLERGIES No Known Allergies Allergy (Verified 09/16/19 16:25) DISCONTINUED MEDICATIONS None NEW PRESCRIPTIONS: BACTRIM DS 1 TABLET BID FOR 7 DAYS. NEXT DOSE IS DUE TONIGHT FERROUS SULFATE 325 MG 1 DAILY SMOKING: SMOKING DISCOURAGED DISEASE SPECIFIC EDUCATION: NUTRITION BLADDER INFECTION LAB REVIEW: 09/20/19 04:52 09/20/19 04:52 09/20/19 04:52: Sodium 133.1 L, Potassium 3.94, Chloride 98.7, Carbon Dioxide 32.5 H, Anion Gap 5.84, BUN 13.3, Creatinine 0.41 L, Estimated GFR (MDRD) 146.00, BUN/Creatinine Ratio 32.43, Glucose 104.9, Calcium 8.47, Total Bilirubin 2.17 H, AST 20.5, ALT 16.0, Alkaline Phosphatase 97.4, Total Protein 5.42 L, Albumin 3.07 L, Globulin 2.35, Albumin/Globulin Ratio 1.30 09/20/19 04:52: WBC 3.80 L, RBC 3.08 L, Hgb 10.2 L, Hct 31.2 L, MCV 101.3 H, MCH 33.1 H, MCHC 32.7, RDW Coeff of Alonso 18.8 H, Plt Count 282, Immature Gran % (Auto) 1.3, Neut % (Auto) 53.5, Lymph % (Auto) 22.9, [place] % (Auto) 16.3 H, Eos % (Auto) 5.5, Baso % (Auto) 0.5, Immature Gran # (Auto) 0.1, Neut # (Auto) 2.0, Lymph # (Auto) 0.9, [place] # (Auto) 0.6, Eos # (Auto) 0.2, Baso # (Auto) 0.0 PLAN: DISCHARGE TO [facility] DIET: CONSISTENT CARBOHYDRATE/NO ADDED SALT REGULAR CONSISTENCY ACTIVITY: PER PHYSICAL THERAPY PATIENT IS TOE TOUCH WEIGHT BEARING X 6 WEEKS FROM DATE OF SURGERY MAY REQUIRE TRANSFER PER LUCILA LIFT TURN FREQUENTLY INCONTINENT CARE PRN DECUBITUS PRECAUTIONS VITAL SIGNS DAILY AND PRN WEEKLY WEIGHTS MONITOR RIGHT HIP INCISIONS (2) DAILY AND PRN PHYSICAL THERAPY EVALUATION OCCUPATIONAL THERAPY EVALUATION CBC, CMP ON Thursday ([facility]) CBC, CMP WEEKLY X 2 THEN CBC, CMP MONTLY CODE STATUS: DNI, CPR ONLY PATIENT TO BE SEEN ON PRISON ROUNDS IN 7-[address] DARNELL/YENNY LAM APRN MS. SMITH IS ALERT TO PERSON, PLACE AND SITUATION. SHE IS DISORIENTED TO TIME. SHE IS CALM AND COOPERATIVE WITH NURSING CARE. MS. SMITH IS PARTIALLY DEPENDENT FOR ACTIVITIES OF DAILY LIVING. SHE IS ABLE TO FEED HERSELF, BUT AT TIMES REQUIRES ENCOURAGEMENT TO EAT. SHE REQUIRES ASSISTANCE WITH OPENING CONTAINERS AND CUTTING MEAT. MEAL INTAKES HAVE BEEN 50- 75%. LIQUID INTAKE IS GOOD. SHE IS DEPENDENT FOR BATHING, DRESSING AND TRANSFERS. SHE IS NON-AMBULATORY DUE TO RECENT RIGHT HIP FRACTURE AND TOE TOUCH WEIGHT BEARING STATUS. SHE WAS TRA NSFERRED TO THE CHAIR YESTERDAY WITH MODERATE ASSISTANCE OF 2 STAFF MEMBER SHE WAS UNABLE TO MAINTAIN TOE TOUCH WEIGHT BEARING STATUS. PLEASE KEEP ALL FOLLOW- UP APPOINTMENTS THAT WERE SCHEDULED AT TIME OF DISCHARGE FROM [facility] REGARDING RECENT ORTHOPAEDIC SURGERY. MS. SMITH IS INCONTINENT OF BLADDER. A COLOSTOMY IS NOTED TO THE LLQ WITH MODERATE AMOUNT OF SOFT/LIQUID BROWN STOOL DRAINED TODAY. A STAGE I DECUBITUS IS NOTED TO THE COCCYX THAT IS PINK IN COLOR. CALMOSEPTINE CREAM HAS BEEN APPLIED TO THE AREA A BARRIER (PROTECTIVE CREAM). THE SKIN TO THE LOWER LEGS IS DRY/FLAKY. RIGHT HIP INCISIONS X 2 ARE NOTED. INCISIONS ARE CLEAN AND WELL- APPROXIMATED. VARIOUS STAGES OF BRUISING NOTED TO THE POSTERIOR RIGHT HIP AND AROUND THE INCISIONS. NO SIGNS OF INFECTION ARE NOTED. MD YENNY CRESPO APRN
--- NOTE | 2019-09-21 10:51 | PN ---
DATE OF SERVICE: 09/20/19 SUBJECTIVE: The patient was seen and examined with the nurse practitioner. The patient's condition has improved. The patient had a blood transfusion because of anemia. Now she is treated for urinary tract infection. The patient's condition has improved. The patient will be discharged, is demented but alert. Hydration status is improved. TIME SPENT: More than 30 minutes. Plan and coordination of the patient's care discussed in the presence of nurse. PETE
--- NOTE | 2019-09-21 10:52 | PN ---
BILLIN09/16/19 ADMISSION DAY LEVEL 5 09/17/19 INTERMEDIATE 09/18/19 INTERMEDIATE 09/19/19 INTERMEDIATE 09/20/19 DISCHARGE MTDD
--- NOTE | 2019-09-23 10:26 | DS ---
DATE OF SERVICE: 09/20/2019 FINAL DIAGNOSIS: 1. ANEMIA, TRANSFUSION 2 UNIT PACKED CELLS 2. UTI, KLEBSIELLA PNEUMONIAE AND E-COLI ORGANISM 3. RECENT FALL 4. RIGHT HIP FRACTURE, TRANSFEMORAL NAIL 09/10/2019 5. COPD 6. DIABETES MELLITUS, TYPE 2 7. GERD 8. DEPRESSION 9. ANXIETY 10.MYELODYSPLASTIC SYNDROME 11.DEMENTIA 12.NON-COMPLIANCE WITH MEDS, FOLLOW-UP AND LIFESTYLE 13.COLOSTOMY 14.CHOLECYSTECTOMY 15.HYSTERECTOMY 16.CATARACT EXTRACTION LAST VITALS: Temp Pulse Resp BP Pulse Ox 97.9 F 65 18 146/67 H 96 09/20/19 05:04 09/20/19 05:04 09/20/19 05:04 09/20/19 05:04 09/20/19 05:04 DISCHARGE INSTRUCTIONS: DISCHARGE TO [facility]. VITAL SIGNS DAILY AND PRN. WEEKLY WEIGHTS. MONITOR RIGHT HIP INCISIONS (2) DAILY AND PRN. PHYSICAL THERAPY EVALUATION/OCCUPATIONAL THERAPY EVALUATION. CBC, CMP ON Thursday ([facility]) CBC, CMP WEEKLY X 2 THEN CBC, CMP MONTHLY. CODE STATUS: DNI, CPR ONLY. PATIENT TO BE SEEN ON RETIREMENT ROUNDS IN 7-[address] DARNELL/YENNY LAM, ASSISTANT SALES CENTER MANAGER. TAKE THESE MEDICATIONS AT HOME: Apixaban (Eliquis) 2.5 mg PO BID [facility] Last Admin: 09/20/19 08:23 Dose: 2.5 mg Documented by: Citalopram Hydrobromide (Celexa) 20 mg PO DAILY [facility] Last Admin: 09/20/19 08:22 Dose: 20 mg Documented by: Docusate Sodium (Colace) 100 mg PO BID [facility] Last Admin: 09/20/19 08:22 Dose: 100 mg Documented by: Donepezil HCl (Aricept) 5 mg PO BEDTIME [facility] Last Admin: 09/19/19 20:41 Dose: 5 mg Documented by: Duloxetine HCl (Cymbalta) 60 mg PO DAILY [facility] Last Admin: 09/20/19 08:22 Dose: 60 mg Documented by: Furosemide (Lasix Tab) 20 mg PO QDAC [facility] Last Admin: 09/20/19 05:45 Dose: 20 mg Documented by: Latanoprost (Xalatan) 1 drop EACHEYE BEDTIME [facility] Last Admin: 09/19/19 20:48 Dose: 1 drop Documented by: Oxycodone/Acetaminophen (Percocet 5-325) 1 tab PO Q6H PRN PRN Reason: Analgesia Last Admin: 09/19/19 20:42 Dose: 1 tab Documented by: Pantoprazole Sodium (Protonix) 40 mg PO DAILY@0630 [facility] Last Admin: 09/20/19 05:45 Dose: 40 mg Documented by: Polyethylene Glycol (Miralax) 17 gm PO DAILY [facility] Last Admin: 09/20/19 08:22 Dose: 17 gm Documented by: Potassium Chloride (Micro-K Cap) 10 meq PO DAILYWM [facility] Last Admin: 09/20/19 08:22 Dose: 10 meq Documented by: Sennosides (Senna) 8.6 mg PO DAILY [facility] Last Admin: 09/20/19 08:36 Dose: 8.6 mg Documented by: Nicotine patch 1 patch transdermal daily Last Admin: ALLERGIES: No Known Allergies Allergy (Verified 09/16/19 16:25) DISCONTINUED MEDICATIONS: None NEW PRESCRIPTIONS: BACTRIM DS 1 TABLET BID FOR 7 DAYS. NEXT DOSE IS DUE TONIGHT FERROUS SULFATE 325 MG 1 DAILY SMOKING: SMOKING DISCOURAGED DISEASE SPECIFIC EDUCATION: NUTRITION BLADDER INFECTION LAB REVIEW: 09/20/19 04:52 09/20/19 04:52 09/20/19 04:52: Sodium 133.1 L, Potassium 3.94, Chloride 98.7, Carbon Dioxide 32.5 H, Anion Gap 5.84, BUN 13.3, Creatinine 0.41 L, Estimated GFR (MDRD) 146.00, BUN/Creatinine Ratio 32.43, Glucose 104.9, Calcium 8.47, Total Bilirubin 2.17 H, AST 20.5, ALT 16.0, Alkaline Phosphatase 97.4, Total Protein 5.42 L, Albumin 3.07 L, Globulin 2.35, Albumin/Globulin Ratio 1.30 09/20/19 04:52: WBC 3.80 L, RBC 3.08 L, Hgb 10.2 L, Hct 31.2 L, MCV 101.3 H, MCH 33.1 H, MCHC 32.7, RDW Coeff of Alonso 18.8 H, Plt Count 282, Immature Gran % (Auto) 1.3, Neut % (Auto) 53.5, Lymph % (Auto) 22.9, [place] % (Auto) 16.3 H, Eos % (Auto) 5.5, Baso % (Auto) 0.5, Immature Gran # (Auto) 0.1, Neut # (Auto) 2.0, Lymph # (Auto) 0.9, [place] # (Auto) 0.6, Eos # (Auto) 0.2, Baso # (Auto) 0.0 DIET: CONSISTENT CARBOHYDRATE/NO ADDED SALT REGULAR CONSISTENCY ACTIVITY: PER PHYSICAL THERAPY. PATIENT IS TOE TOUCH WEIGHT BEARING X 6 WEEKS FROM DATE OF SURGERY MAY REQUIRE TRANSFER PER LUCILA LIFT. TURN FREQUENTLY. INCONTINENT CARE PRN. DECUBITUS PRECAUTIONS. HOSPITAL COURSE: This is a white female who recently had fallen at home and underwent a repair for right hip fracture on 09/10/2019. She was discharged to [facility] on Thursday and was placed on Eliquis 2.5BID for DVT prophylaxis. I did repeat CBC on Thursday as I had found that she had been transfused in the hospital post op. Hgb was found to be 6.9 so she was sent to the emergency room and found to have an abnormal U/A which was nitrate positive with 3+ bacteria. Hgb was 7 on admission. She was pale, short of breath and very weak with intermittent confusion. She was transfused two units of packed red blood cells. Hgb improved to 9.1 then became more stable at 10.2 on day of discharge. Urine culture was positive for Klebsiella. She was started on Rocephin 1 gram IV daily and also positive for e-coli both of which are sensitive to the Rocephin. Also sensitive to Bactrim. She also received IV Rocephin and will be discharged back to [facility] on Bactrim DS BID for the next 7 days. She is on fall precautions. She is to be non-weight bearing on the right lower extremity. We will continue the Eliquis with no signs of GI bleed. Again hgb is stable after transfusion. He does have underline history of myelodysplasia syndrome. However she quit going to Dr. Amor some time ago on her own. They decline to return at this time. We will discharge in stable condition. Followup with her at the shelter. TIME SPENT: More than 60 minutes. PETE
== END 2019-09-20 14:56 | DRG 811 ==
LOC: ED 16:19 → MEDSURG B 18:34
PROVIDERS: ADMIT Internal Medicine; ATTEND Internal Medicine
DX: B96.1 Klebsiella pneumoniae [K. pneumoniae] as the cause of diseases classified elsewhere; R10.9 Unspecified abdominal pain; R53.1 Weakness; J44.9 Chronic obstructive pulmonary disease, unspecified; S72.001A Fracture of unspecified part of neck of right femur, initial encounter for closed fracture; E11.9 Type 2 diabetes mellitus without complications; N39.0 Urinary tract infection, site not specified; Z91.19 Patient's noncompliance with other medical treatment and regimen; F03.90 Unspecified dementia, unspecified severity, without behavioral disturbance, psychotic disturbance, mood disturbance, and anxiety; K21.9 Gastro-esophageal reflux disease without esophagitis; B96.20 Unspecified Escherichia coli [E. coli] as the cause of diseases classified elsewhere; R05 Cough; Z79.899 Other long term (current) drug therapy; D46.9 Myelodysplastic syndrome, unspecified; D64.9 Anemia, unspecified; F41.3 Other mixed anxiety disorders